=== PATIENT | male | born 1960 | race Caucasian/White ===

== ENCOUNTER 2018-11-29 22:25 | Observation (INO) | payer BC ==
--- NOTE | 2018-11-29 22:46 | EDM.PDOC ---
ED HPI GENERAL MEDICAL PROBLEM - General Chief Complaint: Upper Extremity Injury/Pain Stated Complaint: gout pain left arm Time Seen by Provider: 11/29/18 22:40 Source of Information: Reports: Patient, Old Records ([facility] chart/EMR), Other ([facility] EMR) History Limitations: Reports: No Limitations - History of Present Illness INITIAL COMMENTS - FREE TEXT/NARRATIVE: The patient drove himself to the emergency room for evaluation of 10/10 throbbing left elbow pain with history of at least 2 gout attacks per year. He has been trying to lose weight, however he has been eating lots of shrimp, cheese, and having additional beer. He did take 0.6 mg of colchicine at about 20 :00 hours evening, however no other medications including NSAIDs, etc.. Note that the patient did discontinue his Toprol-XL and Cardura about one week ago as per advice from his regular provider, Haroon Small M.D. at the [facility], secondary to some apparent bradycardia with increase of his lisinopril at that time. No history of injury to his left elbow, etc.. The patient denies any chest pain/pressure, heart flutter, dizziness, orthostasis, orthopnea, diaphoresis, paresthesias, recent decreased exercise tolerance, or any other anginal-type symptoms. No recent history of abdominal pain, heartburn , nausea, diarrhea, melena, gross hematochezia, or any food intolerance, including fatty foods, etc.. He denies any gross hematuria, colic, or other UTI symptoms. The patient also denies any recent fever, cough, wheezing, dyspnea, etc.. Onset: Gradual Onset Date: 11/28/18 Duration: Constant, Getting Worse Location: Reports: Upper Extremity, Left. Denies: Head, Face, Neck, Chest, Abdomen, Back, Upper Extremity, Right, Radiates to Quality: Reports: Throbbing Severity: Severe Improves with: Reports: Rest Worsens with: Reports: Movement Context: Reports: Other (As above). Denies: Trauma Associated Symptoms: Denies: Confusion, Chest Pain, Cough, cough w sputum, Diaphoresis, Fever/Chills, Loss of Appetite, Malaise, Nausea/Vomiting, Seizure, Shortness of Breath, Syncope, Weakness Treatments SHIRT PRESSER: Reports: Other Medication(s) Left Elbow Pain Score (Numeric/FACES): 10 - Related Data Allergies Allergy/AdvReac Type Severity Reaction Status Date / Time No Known Allergies Allergy Verified 11/29/18 22:33 Home Meds: Home Meds Lisinopril 20 mg PO BID 12/23/14 [History] Apixaban [Eliquis] 5 mg PO BID@0900,2100 12/13/17 [History] Pregabalin [Lyrica] 75 mg PO BID 01/08/18 [History] metFORMIN [Glucophage] 500 mg PO DAILY 01/08/18 [History] Colchicine [Colcrys] 0.6 mg PO DAILY PRN 11/29/18 [History] Furosemide 20 mg PO BID 11/29/18 [History] Nitroglycerin 0.4 mg SL ASDIRECTED PRN 11/30/18 [History] Past Medical History HEENT History: Reports: Impaired Vision, Other (See Below). Denies: Allergic Rhinitis, Cataract, Glaucoma, Hard of Hearing, Macular Degeneration, Otitis Media, Retinal Detachment Other HEENT History: Patient wears reading glasses after previous LASIK surgery as below. Cardiovascular History: Reports: Afib, Arrhythmia, Blood Clots/VTE/DVT, CAD, Cardiomyopathy, Heart Failure, High Cholesterol, Hypertension, [place], PVD, Other ( See Below). Denies: Aneurysm, Bypass, Heart Murmur, Pacemaker, PTCA, Stents, Syncope Other Cardiovascular History: Cardioversion for atrial flutter on 09/03/18. Non- STEMI on 12/13/17 with 90% stenosis of the second diagonal of the left coronary artery not amenable to PTCA/stent. Atrial flutter with rapid ventricular response in August 2018 requiring cardioversion as below. History of left leg DVT with secondary bilateral PE in about 2014 with current Eliquis therapy. Peripheral vascular disease of the legs bilaterally with surgery as below. Left atrial enlargement, cardiomegaly, and mild aortic root dilatation by echocardiogram in 2009 as below. CHF with additional diastolic component. Small pericardial effusion by echocardiogram. Respiratory History: Reports: Bronchitis, Recurrent, COPD, Intubation, Previous , PE, Sleep Apnea. Denies: Asthma, Intubation, Difficult, Pneumothorax, Pulmonary Fibrosis Other Respiratory History: Patient has been noncompliant with his CPAP. Multiple benign right upper lobe pulmonary nodules by CT scans as below. Gastrointestinal History: Reports: Colon Polyp, Diverticulosis, Hemorrhoids, Other (See Below). Denies: Bowel Obstruction, Celiac Disease, Cholelithiasis, Chronic Constipation, Chronic Diarrhea, Fecal Incontinence, Gastritis, GERD, GI Bleed, Hepatitis, Inflammatory Bowel Disease, Jaundice, Pancreatitis Other Gastrointestinal History: LFTs elevation likely secondary to his fatty liver with hepatosplenomegaly by CT scan. Benign hyperplastic colonic polyp at 25 cm removed by colonoscopy in 2007 as below. Genitourinary History: Reports: BPH, Chronic Renal Insuffiency, Diabetic Nephropathy, Hydronephrosis, Renal Calculus, Other (See Below). Denies: Acute Renal Failure, Retention, Urinary, STD, Urinary Incontinence, UTI, Recurrent Other Genitourinary History: History of recurrent urolithiasis with initial right-sided urolithiasis in 2003 and subsequent episodes in February 2018 with last episode on 01/08/18 with secondary right-sided hydronephrosis from a 1 cm distal stone requiring procedure as below. Benign left renal cyst. Musculoskeletal History: Reports: Arthritis, Back Pain, Chronic, Fracture, Gout , Neck Pain, Chronic, Osteoarthritis, Other (See Below). Denies: Amputation, Osteoporosis, RA, SLE Other Musculoskeletal History: Digit #5 fracture of the left hand as a teenager. Midshaft right radial and ulnar fracture at age 43. Neurological History: Reports: Concussion, Head Trauma, Neuropathy, Diabetic, Neuropathy, Peripheral, TIA, Other (See Below). Denies: Cerebral Aneurysms, CVA , Migraines, MS, Seizure, Vertigo Other Neuro History: Restless leg syndrome. Head Concussions 2 at age 35 and 43. Questionable TIA in December 2017 with negative MRI. Psychiatric History: Reports: Anxiety, Depression. Denies: Abuse, Victim of, ADD, ADHD, Addiction, Psych Hospitalization(s), Psychosis, PTSD, Suicide Attempt , Suicidal Ideation Endocrine/Metabolic History: Reports: Diabetes, Type I, Diabetes, Type II, IDDM , Obesity/BMI 30+, Other (See Below). Denies: Hypothyroidism, Osteopenia, Osteoporosis Other Endocrine/Metabolic History: History of AODM with previous occasional insulin use Hematologic History: Reports: None. Denies: Anemia, Blood Transfusion(s), Iron Deficiency Immunologic History: Reports: None. Denies: AIDS, HIV, SLE Oncologic (Cancer) History: Reports: None. Denies: Basal Cell Carcinoma, Colon , Hodgkin's Lymphoma, Leukemia, Lymphoma, Malignant Melanoma, Non-Hodgkin's Lymphoma, Prostate, Squamous Cell Carcinoma Dermatologic History: Reports: Venous Stasis Dermatitis. Denies: Eczema, Psoriasis - Infectious Disease History Infectious Disease History: Reports: Chicken Pox, Measles, Shingles. Denies: C- Difficile, Meningitis, Mononucleosis, MRSA, Mumps, Pertussis (Whooping Cough), Rheumatic Fever, Rubella, Scarlet Fever, TB, VRE - Past Surgical History Head Surgeries/Procedures: Reports: None HEENT Surgical History: Reports: LASIK, Oral Surgery. Denies: Adenoidectomy, Cataract Surgery, Eye Surgery, Laser Surgery, Myringotomy w Tube(s), Naso-Sinus Surgery, Tonsillectomy Other HEENT Surgeries/Procedures: [place] teeth extraction 4 at age 19. LASIK bilaterally in 1996. Cardiovascular Surgical History: Reports: Vascular Surgery, Other (See Below). Denies: AAA Repair, Coronary Artery Stent, Percutaneous Transluminal Angioplasty , Varicose Other Cardiovascular Surgeries/Procedures: Electrocardioversion for atrial flutter on 09/03/18. Left leg stent placement in 2013. Respiratory Surgical History: Reports: None. Denies: Thoracentesis GI Surgical History: Reports: Appendectomy, Colonoscopy, Hernia, Inguinal, Hernia Repair/Other, Polypectomy, Other (See Below). Denies: Cholecystectomy, EGD, Hernia, Abdominal Other GI Surgeries/Procedures: Appendectomy at age 11. Colonoscopy with concomitant umbilical hernia repair on 02/22/08 with previous bilateral inguinal hernia repairs. Male Surgical History: Reports: None, Kidney Stone Extraction, Renal Calculus , Other (See Below). Denies: Circumcision, TURP-Transurethral Resection of Prostate, Vasectomy Other Male Surgeries/Procedures: Right ureteral stent placement, cystoscopy, and stone extraction on 01/11/18. Endocrine Surgical History: Reports: None. Denies: Thyroid Biopsy Neurological Surgical History: Reports: Discectomy, Laminectomy, Lumbar Spine, Other (See Below). Denies: C-Spine, Sacral Spine, Spinal Fusion, Thoracic Spine , Vertebroplasty Other Neurological Surgeries/Procedures: Laser laminectomy and discectomy in the lumbar region in 2011. Musculoskeletal Surgical History: Reports: None. Denies: Arthroscopic Procedure , Carpal Tunnel, Ganglion Cyst, Joint Replacement, ORIF, Shoulder Surgery Oncologic Surgical History: Reports: None Dermatological Surgical History: Reports: None - Past Imaging History Past Imaging History: Reports: Angiography (Positive Heart catheterization on .), Cardiac Echo (Last echocardiogram on 11/21/18 with ejection fraction of 5560 percent and findings as above. Trans-esophageal echocardiogram performed on 09/03/18 at time of cardioversion. Previous echocardiograms on 12/15 and 01/21/10.), CAT Scan (Negative CTA of the chest for PE on 11/15/18, , 12/14/14 [address] 06/22/16. CT of the abdomen and pelvis on with positive findings as above. CT of the chest on 02/12/18.), MRI (Brain on 12/15/17. Lumbar spine on 07/11/11.), Sleep Study (Last sleep study including CPAP titration on 11/07.), Ultrasound (Renal ultrasound on 02/22/18, 01/09/18, 10/21/17 and 02/04/04.) , Venous Doppler (Bilateral 10/17/15 with left-sided study on 06/23/16.), Other ( See Below) (IVP on 02/04/04.) Social & Family History - Family History HEENT: Reports: Cataract, Other (See Below). Denies: Glaucoma, Macular Degeneration, Retinal Detachment Other HEENT Family History: Multiple paternal aunts and uncles with cataracts. Cardiac: Reports: Heart Murmur, Hypertension, Other (See Below). Denies: Afib, Aneurysm, Arrhythmia, Blood Clots/VTE/DVT, CAD, Heart Failure, High Cholesterol , [place], PVD/COD, Syncope Other Cardiac Family History: Paternal uncle with valvular disease secondary to rheumatic fever. Hypertension in parents. Respiratory: Reports: Sleep Apnea, Other (See Below). Denies: Asthma, COPD, PE , Pneumothorax Other Respiratory Family Hisory: Mother with sleep apnea. GI: Reports: Cholelithiasis, Other (See Below). Denies: Celiac Disease, Colon Polyps, GERD, GI bleed, Inflammatory Bowel Disease, Irritable Bowel Syndrome, PUD Other GI Family History: Father with cholelithiasis. : Reports: Renal Calculus, Other (See Below). Denies: Renal Disease/ Insufficiency Other Family History: Multiple paternal uncles with urolithiasis. OBGYN: Reports: None. Denies: Endometriosis, Recurrent Spontaneous Musculoskeletal: Reports: Arthritis, Gout, Osteoarthritis, Other (See Below). Denies: RA, SLE Other Musculoskeletal Family History: Father with gout and osteoarthritis. Neurological: Reports: CVA, Other (See Below). Denies: Alzheimers Disease, Cerebral Aneurysms, Dementia, Migraines, MS, Seizure, TIA, Vertigo Other Neurological Family History: Maternal grandfather with CVA in his 70s. Psychiatric: Reports: None. Denies: Abuse, Victim of, ADD, ADHD, Anxiety, Depression, Psych Hospitalization(s), PTSD, Suicide Attempt Endocrine/Metabolic: Reports: Diabetes, type II, IDDM, Other (See Below). Denies: Diabetes, Type I, Diabetes Mellitus, Type 3c, Hypothyroidism Other Endocrine/Metabolic Family History: Mother and paternal uncle with IDDM. Hematologic: Reports: Other (See Below) Other Hematologic Family History: Maternal uncle with unknown type of rare blood disease. Immunologic: Reports: None. Denies: AIDS, HIV, SLE Dermatologic: Reports: None. Denies: Eczema, Psoriasis Oncologic: Reports: Breast, Prostate, Other (See Below). Denies: Colon, Hodgkin 's Lymphoma, Leukemia, Lymphoma, Non-Hodgkin's Lymphoma, Skin Other Oncologic Family History: Mother with breast cancer at age 72. Paternal uncle with prostate cancer in his 80s. - Tobacco Use Smoking Status *Q: Never Smoker Tobacco Use Within Last Twelve Months: No Used Tobacco, but Quit: No Smoking Cessation Information Provided To Patient: No Second Hand Smoke Exposure: No Second Hand Smoke Education Provided: No - Caffeine Use Caffeine Use: Reports: Coffee (One cup per month), Soda (1 soda per week). Denies: Energy Drinks, Tea - Alcohol Use Alcohol Use History: Yes Days Per Week of Alcohol Use: 2 Number of Drinks Per Day: 4 Number of Drinks Per Day Comment: Usually beer with occasional wine. No previous DWIs, problems with alcohol abuse, etc. Total Drinks Per Week: 8 Alcohol Use in Last Twelve Months: Yes - Recreational Drug Use Recreational Drug Use: No Drug Use in Last 12 Months: No Recreational Drug Type: Denies: Amphetamines (Speed), Cocaine, Heroin, Inhalants (Glues, Solvents, Aerosols), LSD (Acid), Marijuana/Hashish, Methamphetamine, Morphine, Oxycodone - Living Situation & Occupation Living situation: Reports: (1980. 2 children), with Family () Occupation: Employed ([employer]) Review of Systems - Review of Systems Review Of Systems: ROS reveals no pertinent complaints other than HPI. ED EXAM, GENERAL - Physical Exam Exam: See Below Exam Limited By: No Limitations General Appearance: Alert, WD/WN, No Apparent Distress Eye Exam: Bilateral Eye: EOMI, Normal Inspection (No nystagmus), PERRL, Other ( Borderline mild exophthalmos) Ears: Normal External Exam, Normal Canal, Hearing Grossly Normal, Normal TMs Nose: Normal Inspection, Normal Mucosa, No Blood Throat/Mouth: Normal Inspection, Normal Lips, Normal Teeth, Normal Gums, Normal Oropharynx, Normal Voice, No Airway Compromise. No: Dysphagia, Perioral Cyanosis Head: Atraumatic, Normocephalic. No: Facial Swelling, Facial Tenderness, Sinus Tenderness Neck: Normal Inspection, Supple, Non-Tender, Full Range of Motion. No: Carotid Bruit, Lymphadenopathy (L), Lymphadenopathy (R), Thyromegaly Respiratory/Chest: No Respiratory Distress, Normal Breath Sounds, No Accessory Muscle Use, Chest Non-Tender, Rales (Mild bilateral). No: Rhonchi, Wheezing, Pleural Rub, Retractions Cardiovascular: Normal Peripheral Pulses, No Gallop, Tachycardia, Irregularly Irregular. No: No Edema (Dependent edema as below), Gallop/S3, Gallop/S4, Friction Rub Peripheral Pulses: 2+: Radial (L), Radial (R), Dorsalis Pedis (L), Dorsalis Pedis (R) GI/Abdominal: Normal Bowel Sounds, Soft, Non-Tender, No Organomegaly, No Distention, No Abnormal Bruit, No Mass, Pelvis Stable, Other (Obese). No: Guarding (Male) Exam: Deferred Rectal (Males) Exam: Deferred Back Exam: Normal Inspection, Full Range of Motion. No: CVA Tenderness (L), CVA Tenderness (R), Muscle Spasm Extremities: Normal Range of Motion, Non-Tender, Normal Capillary Refill, Pedal Edema (Trace to +1 bilateral pedal/pretibial edema), Other (Moderate venous stasis dermatitis over the anterior tibial regions bilaterally with some superficial abrasions and eschar on the left tibial area with no local signs of infection). No: No Pedal Edema, Tim's Sign Neurological: Alert, Oriented, CN II-XII Intact, Normal Cognition, Normal Gait, Normal Reflexes (Negative Babinski's), No Motor/Sensory Deficits, Other ( Moderate restless legs while sleeping in the emergency room.) Psychiatric: Normal Affect, Normal Mood Skin Exam: Warm, Dry, Intact, Normal Color, Rash (Venous stasis dermatitis as above), Wound/Incision (As above). No: Diaphoretic Lymphatic: No Adenopathy EKG INTERPRETATION EKG Date: 11/29/18 Time: 23:27 Rhythm: A-Flutter Rate (Beats/Min): 89 [place]: Normal (Left) P-Wave: Variable QRS: Normal (0.08 seconds) ST-T: Normal QT: Normal MI/PQ Interval: Variable; poor R-wave progression in the anterior leads Comparison: Change From Previous EKG (Resolution of previous T-wave inversions in leads V1 and 3) Course - Vital Signs Last Recorded V/S: Last Vital Signs Temp 36.9 C 11/29/18 22:28 Pulse 74 11/29/18 23:57 Resp 20 11/29/18 23:57 BP 110/74 11/29/18 23:57 Pulse Ox 94 L 11/29/18 23:57 Vital Signs - 24 hr 11/29/18 11/29/18 11/29/18 22:28 22:42 22:44 Temperature [ 36.9 C Oral] Pulse, Peripheral Pulse, 154 H 149 H 149 H Peripheral [ Right Pulse Oximetry] Respiratory 18 21 H Rate Blood Pressure Blood Pressure 129/101 H 138/102 H 126/106 H [Right Upper Arm] O2 Sat by Pulse 97 94 L 94 L Oximetry 11/29/18 11/29/18 11/29/18 22:59 23:00 23:15 Temperature [ Oral] Pulse, 148 H Peripheral Pulse, 148 H 144 H Peripheral [ Right Pulse Oximetry] Respiratory 20 20 Rate Blood Pressure 125/101 H Blood Pressure 125/101 H 133/96 H [Right Upper Arm] O2 Sat by Pulse 95 94 L Oximetry 11/29/18 11/29/18 11/29/18 23:30 23:40 23:43 Temperature [ Oral] Pulse, 123 H Peripheral Pulse, 97 75 Peripheral [ Right Pulse Oximetry] Respiratory 21 H 23 H Rate Blood Pressure 108/72 Blood Pressure 108/73 108/72 [Right Upper Arm] O2 Sat by Pulse 93 L 94 L Oximetry 11/29/18 11/30/18 11/30/18 23:57 00:12 00:27 Temperature [ Oral] Pulse, Peripheral Pulse, 74 83 74 Peripheral [ Right Pulse Oximetry] Respiratory 20 18 19 Rate Blood Pressure Blood Pressure 110/74 125/93 H 112/86 [Right Upper Arm] O2 Sat by Pulse 94 L 93 L 93 L Oximetry - Orders/Labs/Meds Orders: Active Orders 24 hr Category Date Time Status Cardiac Monitoring [RC] . DIRECTED Care 11/29/18 22:47 Active EKG Documentation Completion [RC] ASDIRECTED Care 11/29/18 22:47 Active Oxygen Therapy, ED [RC] PRN Care 11/29/18 22:47 Active Peripheral IV Care [RC] . DIRECTED Care 11/29/18 22:47 Active Pulse Oximetry [RC] CONTINUOUS Care 11/29/18 22:47 Active Up With Assistance [RC] PFP Care 11/29/18 22:47 Active Vital Signs [RC] PFP Care 11/29/18 22:47 Active Nothing per Oral Now Diet [DIET] Diet 11/29/18 Breakfast Active Chest 1V Frontal [CR] Stat Exams 11/29/18 22:47 Ordered CULTURE BLOOD [BC] Stat Lab 11/29/18 22:50 Ordered CULTURE BLOOD [BC] Stat Lab 11/29/18 22:50 Ordered Sodium Chloride 0.9% [Saline Flush] Med 11/29/18 22:47 Active 10 ml FLUSH ASDIRECTED PRN Blood Culture x2 Reflex Set [OM.PC] Urgent Oth 11/29/18 22:50 Ordered Obtain Past Medical Record [OM.PC] Urgent Oth 11/29/18 22:47 Active Peripheral IV Insertion Adult [OM.PC] Stat Oth 11/29/18 22:47 Ordered Resuscitation Status Stat Resus Stat 11/29/18 22:47 Ordered Medication Orders Sodium Chloride (Saline Flush) 10 ml FLUSH ASDIRECTED PRN PRN Reason: Keep Vein Open Last Admin: 11/29/18 23:06 Dose: 10 ml Labs: Laboratory Tests 11/29/18 11/29/18 11/29/18 Range/Units 22:55 22:55 22:55 WBC 7.8 (4.0-10.2) K/uL RBC 4.61 (4.33-5.41) M/uL Hgb 13.1 (13.1-16.8) g/dL Hct 40.5 (39.0-49.0) % MCV 87.9 (84.0-98.0) fL MCH 28.4 (28.2-33.3) pg MCHC 32.3 (31.7-36.0) g/dL RDW 14.4 H (11.2-14.1) % Plt Count 168 (150-350) K/uL Neut % (Auto) 77.5 (45.0-80.0) % Lymph % (Auto) 12.1 (10.0-50.0) % [place] % (Auto) 8.3 (2.0-14.0) % Eos % (Auto) 1.7 (0.0-5.0) % Baso % (Auto) 0.4 (0.0-2.0) % Neut # (Auto) 6.06 (1.40-7.00) K/uL Lymph # (Auto) 0.95 (0.50-3.50) K/uL [place] # (Auto) 0.65 (0.00-1.00) K/uL Eos # (Auto) 0.13 (0.00-0.50) K/uL Baso # (Auto) 0.03 (0.00-0.20) K/uL PT 12.1 H (9.5-12.0) SEC INR 1.1 APTT 28.0 (21.0-31.3) SEC Sodium 144 (136-145) mmol/L Potassium 3.8 (3.5-5.1) mmol/L Chloride 107 (98-107) mmol/L Carbon Dioxide 25.6 (21.0-32.0) mmol/L BUN 20 H (7-18) mg/dL Creatinine 1.23 H (0.51-1.17) mg/dL Est Cr Clr Drug Dosing TNP Estimated GFR (MDRD) > 60 mL/min Glucose 139 H (74-106) mg/dL Lactic Acid (0.4-2.0) mmol/L Uric Acid 9.5 H (2.6-7.2) mg/dL Calcium 9.1 (8.5-10.1) mg/dL Magnesium 1.7 L (1.8-2.4) mg/dL Total Bilirubin 1.0 (0.2-1.0) mg/dL AST 16 (15-37) U/L ALT 32 (12-78) U/L Alkaline Phosphatase 103 (46-116) IU/L Creatine Kinase 51 (26-308) U/L Creatine Kinase Index 2.0 (0.0-2.5) % CK-MB (CK-2) 1.00 (0.00-3.60) ng/mL Troponin I 0.045 (0.000-0.056) ng/mL NT-Pro-B Natriuret Pep 1198 H (0-125) pg/mL Total Protein 6.8 (6.4-8.2) g/dL Albumin 3.5 (3.4-5.0) g/dL TSH, Ultra Sensitive 2.407 (0.358-3.740) mIU/mL Ethyl Alcohol (0.000-0.080) g/dL 11/29/18 11/29/18 Range/Units 22:55 22:55 WBC (4.0-10.2) K/uL RBC (4.33-5.41) M/uL Hgb (13.1-16.8) g/dL Hct (39.0-49.0) % MCV (84.0-98.0) fL MCH (28.2-33.3) pg MCHC (31.7-36.0) g/dL RDW (11.2-14.1) % Plt Count (150-350) K/uL Neut % (Auto) (45.0-80.0) % Lymph % (Auto) (10.0-50.0) % [place] % (Auto) (2.0-14.0) % Eos % (Auto) (0.0-5.0) % Baso % (Auto) (0.0-2.0) % Neut # (Auto) (1.40-7.00) K/uL Lymph # (Auto) (0.50-3.50) K/uL [place] # (Auto) (0.00-1.00) K/uL Eos # (Auto) (0.00-0.50) K/uL Baso # (Auto) (0.00-0.20) K/uL PT (9.5-12.0) SEC INR APTT (21.0-31.3) SEC Sodium (136-145) mmol/L Potassium (3.5-5.1) mmol/L Chloride (98-107) mmol/L Carbon Dioxide (21.0-32.0) mmol/L BUN (7-18) mg/dL Creatinine (0.51-1.17) mg/dL Est Cr Clr Drug Dosing Estimated GFR (MDRD) mL/min Glucose (74-106) mg/dL Lactic Acid 0.7 (0.4-2.0) mmol/L Uric Acid (2.6-7.2) mg/dL Calcium (8.5-10.1) mg/dL Magnesium (1.8-2.4) mg/dL Total Bilirubin (0.2-1.0) mg/dL AST (15-37) U/L ALT (12-78) U/L Alkaline Phosphatase (46-116) IU/L Creatine Kinase (26-308) U/L Creatine Kinase Index (0.0-2.5) % CK-MB (CK-2) (0.00-3.60) ng/mL Troponin I (0.000-0.056) ng/mL NT-Pro-B Natriuret Pep (0-125) pg/mL Total Protein (6.4-8.2) g/dL Albumin (3.4-5.0) g/dL TSH, Ultra Sensitive (0.358-3.740) mIU/mL Ethyl Alcohol < 0.002 (0.000-0.080) g/dL Meds: Medications Generic Name Dose Route Start Last Admin Trade Name Freq PRN Reason Stop Dose Admin Sodium Chloride 10 ml 11/29/18 22:47 11/29/18 23:06 Saline Flush FLUSH 10 ml ASDIRECTED PRN Administration Keep Vein Open Discontinued Medications Generic Name Dose Route Start Last Admin Trade Name Freq PRN Reason Stop Dose Admin Diltiazem HCl 20 mg 11/29/18 23:16 11/29/18 23:19 Diltiazem IVPUSH 11/29/18 23:17 20 mg ONETIME ONE Administration Diltiazem HCl 120 mg 11/29/18 23:32 11/29/18 23:40 Cardizem Cd PO 11/29/18 23:33 120 mg ONETIME ONE Administration Famotidine 40 mg 11/29/18 22:51 11/29/18 23:04 Pepcid IVPUSH 11/29/18 22:52 40 mg ONETIME ONE Administration Ketorolac Tromethamine 30 mg 11/29/18 22:50 11/29/18 23:09 Toradol IVPUSH 11/29/18 22:51 30 mg ONETIME ONE Administration Metoprolol Tartrate 5 mg 11/29/18 22:47 11/29/18 22:59 Lopressor IVPUSH 11/29/18 22:48 5 mg ONETIME ONE Administration - Radiology Interpretation Free Text/Narrative:: office agent showed initial probable atrial flutter with initial heart rates in the 150s with subsequent improvement to the 70s to 80s after medical therapy however persistent atrial flutter with no other ectopy or arrhythmia. Chest x-ray, portable, shows evidence of moderate cardiomegaly and COPD changes with mild centralized CHF, however no pulmonary infiltrates, pneumothorax, etc. Departure - Departure Time of Disposition: 00:47 Disposition: Refer to Observation Condition: Good Clinical Impression: Dyslipidemia, Hypomagnesemia, Renal insufficiency, Atrial flutter, Restless leg syndrome, Apnea, sleep, CHF (congestive heart failure) Coronary artery disease Qualifiers: Coronary Disease-Associated Artery/Lesion type: [place] artery [place] vs. transplanted heart: [place] heart Associated angina: without angina Qualified Code(s): I25.10 - Atherosclerotic heart disease of [place] coronary artery without angina pectoris Diabetes mellitus Qualifiers: Diabetes mellitus type: type 2 Diabetes mellitus long term acute care registered nurse insulin use: without jail use Diabetes mellitus complication status: without complication Qualified Code(s): E11.9 - Type 2 diabetes mellitus without complications Hypertension Qualifiers: Hypertension type: essential hypertension Qualified Code(s): I10 - Essential ( primary) hypertension COPD (chronic obstructive pulmonary disease) Qualifiers: COPD type: emphysema Emphysema type: panlobular Qualified Code(s): J43.1 - Panlobular emphysema Gout attack Qualifiers: Gout site: elbow Gout etiology: idiopathic Laterality: left Qualified Code(s): M10.022 - Idiopathic gout, left elbow - Discharge Information *PRESCRIPTION DRUG MONITORING PROGRAM REVIEWED*: Not Applicable *COPY OF PRESCRIPTION DRUG MONITORING REPORT IN PATIENT SAMMI: Not Applicable Referrals: Haroon Small MD [Primary Care Provider] - Forms: ED Department Discharge Care Plan Goals: See plan - Problem List & Annotations (1) Atrial flutter SNOMED Code(s): 2337171 Code(s): I48.92 - UNSPECIFIED ATRIAL FLUTTER Status: Acute Priority: High Current Visit: Yes Onset Date: ~11/29/18 Annotation/Comment:: Recurrent atrial flutter with rapid ventricular response today with previous cardioversion on 09/03/18 as above. Note recent discontinuation of his Toprol-XL therapy. No significant improvement initially with IV Lopressor, however overall good results with subsequent 10 mg of IV diltiazem. Second dose of 10 mg of diltiazem was not required, although the patient was started on low-dose Cardizem CD with caution secondary to his Eliquis therapy. Continue Cardizem CD for now with additional low-dose metoprolol, if symptoms remain refractory to therapy. Secondary to recurrent tachycardia even with only brief exertion, including sitting up in the bed, and also secondary to his gout, hypertension, etc. the patient will be placed in observation status for further medication adjustments, etc.. Depending on his clinical course he may need to the change to acute care. business center representative physician assumes care in the a.m.. Note secondary to his significant cardiomegaly repeat cardioversion for his atrial flutter will likely be unsuccessful. The patient is already on Eliquis. (2) CHF (congestive heart failure) SNOMED Code(s): 04230034 Code(s): I50.9 - HEART FAILURE, UNSPECIFIED Status: Chronic Priority: High Current Visit: Yes Annotation/Comment:: Mild CHF by clinical exam and chest x-ray, however significantly elevated BNP. Initiate IV Lasix therapy with caution secondary to his current gout attack, renal insufficiency, etc. Note recent echocardiogram on 11/21/18. Qualifiers: Heart failure type: combined systolic and diastolic (3) Coronary artery disease SNOMED Code(s): 02054453 Code(s): I25.10 - ATHSCL HEART DISEASE OF [place] CORONARY ARTERY W/O ANG PCTRS Status: Chronic Priority: Medium Annotation/Comment:: No Chest pain or anginal type symptoms. Initiate standard rule out [place] orders with cardiology consultation depending on his clinical course. Qualifiers: Coronary Disease-Associated Artery/Lesion type: [place] artery [place] vs. transplanted heart: [place] heart Associated angina: without angina Qualified Code(s): I25.10 - Atherosclerotic heart disease of [place] coronary artery without angina pectoris (4) Dyslipidemia SNOMED Code(s): 116653072 Code(s): E78.5 - HYPERLIPIDEMIA, UNSPECIFIED Status: Acute Priority: High Onset Date: 12/13/17 Annotation/Comment:: Patient did previously take Lipitor in the past, however stopped this secondary to the cost of this medication. He is trying to lose weight with weight loss in moderation advisable. Lipid panel and glycosylated hemoglobin in the a.m. (5) Gout attack SNOMED Code(s): 102264657 Code(s): M10.9 - GOUT, UNSPECIFIED Status: Acute Priority: High Onset Date: ~11/28/18 Annotation/Comment:: History of recurrent gout attacks. IV Toradol given in the emergency room with continuation of IV Toradol with caution secondary to his Eliquis therapy. Short-term additional colchicine for now. Patient has been noncompliant with his uric acid diet as above with dietary information to be provided at discharge. Consider initiation of allopurinol therapy once his current gout attack has resolved secondary to his history of recurrent gout attacks as above. 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 Overall good results with additional low-dose IV Lopressor and oral and IV diltiazem. Continue oral diltiazem for now. Qualifiers: Hypertension type: essential hypertension Qualified Code(s): I10 - Essential (primary) hypertension (7) Hypomagnesemia SNOMED Code(s): 768156733 Code(s): E83.42 - HYPOMAGNESEMIA Status: Acute Priority: Medium Onset Date: 11/30/18 Annotation/Comment:: Initiate magnesium oxide therapy with close follow-up by his regular providers at discharge. (8) Renal insufficiency SNOMED Code(s): 156695328, 926583467 Code(s): N28.9 - DISORDER OF KIDNEY AND URETER, UNSPECIFIED Status: Chronic Priority: Medium Annotation/Comment:: The patient is already on lisinopril. Note diabetic nephropathy and history of CHF. Continue to observe renal function closely secondary to IV Lasix, colchicine, etc. (9) COPD (chronic obstructive pulmonary disease) SNOMED Code(s): 61947713 Code(s): J44.9 - CHRONIC OBSTRUCTIVE PULMONARY DISEASE, UNSPECIFIED Status : Chronic Priority: Medium Annotation/Comment:: COPD by chest x-ray with no previous therapy. PFTs once patient's condition has stabilized. Note patient has an additional history of sleep apnea and has been noncompliant with his CPAP. Weight loss in moderation and compliance with his CPAP strongly encouraged , which should also be beneficial for his uncontrolled hypertension at this time. Qualifiers: COPD type: emphysema Emphysema type: panlobular Qualified Code(s): J43.1 - Panlobular emphysema (10) Diabetes mellitus SNOMED Code(s): 47572519 Code(s): E11.9 - TYPE 2 DIABETES MELLITUS WITHOUT COMPLICATIONS Status: Chronic Priority: Medium Annotation/Comment:: Patient does not take Accu- Cheks at home. Glycosylated hemoglobin in the a.m. Note history of diabetic nephropathy and neuropathy. Qualifiers: Diabetes mellitus type: type 2 Diabetes mellitus long term acute care registered nurse insulin use: without long term acute care registered nurse use Diabetes mellitus complication status: with kidney complications Diabetes mellitus complication detail: with chronic kidney disease Chronic kidney disease stage: stage 2 (mild) Qualified Code(s): E11.22 - Type 2 diabetes mellitus with diabetic chronic kidney disease; N18.2 - Chronic kidney disease, stage 2 (mild) (11) Osteoarthritis SNOMED Code(s): 568477685 Code(s): M19.90 - UNSPECIFIED OSTEOARTHRITIS, UNSPECIFIED SITE Status: Chronic Priority: Medium Annotation/Comment:: Otherwise stable by patient history. Qualifiers: Osteoarthritis location: multiple joints Osteoarthritis type: primary Qualified Code(s): M15.0 - Primary generalized (osteo)arthritis (12) Apnea, sleep SNOMED Code(s): 48937445 Code(s): G47.30 - SLEEP APNEA, UNSPECIFIED Status: Chronic Priority: Medium Current Visit: Yes Annotation/Comment:: Patient just restarted his CPAP again yesterday evening and has been significantly noncompliant with this therapy the past. Note recent sleep study on 11/07/18 for CPAP titration. Note significant restless leg syndrome during ER evaluation. Initiate Mirapex Qualifiers: Sleep apnea type: obstructive Qualified Code(s): G47.33 - Obstructive sleep apnea (adult) (pediatric) (13) Restless leg syndrome SNOMED Code(s): 88118420 Code(s): G25.81 - RESTLESS LEGS SYNDROME Status: Chronic Priority: Medium Current Visit: Yes Annotation/Comment:: As above - Problem List Review Problem List Initiated/Reviewed/Updated: Yes - My Orders Last 24 Hours: My Active Orders 11/29/18 22:47 Cardiac Monitoring [RC] . DIRECTED EKG Documentation Completion [RC] ASDIRECTED Oxygen Therapy, ED [RC] PRN Peripheral IV Care [RC] . DIRECTED Pulse Oximetry [RC] CONTINUOUS Up With Assistance [RC] PFP Vital Signs [RC] PFP Chest 1V Frontal [CR] Stat Sodium Chloride 0.9% [Saline Flush] 10 ml FLUSH ASDIRECTED PRN Obtain Past Medical Record [OM.PC] Urgent Peripheral IV Insertion Adult [OM.PC] Stat Resuscitation Status Stat 11/29/18 22:50 CULTURE BLOOD [BC] Stat CULTURE BLOOD [BC] Stat Blood Culture x2 Reflex Set [OM.PC] Urgent 11/29/18 Breakfast Nothing per Oral Now Diet [DIET] - Assessment/Plan Admission H&P: Please use this note as an admission H&P Last 24 Hours: My Active Orders 11/29/18 22:47 Cardiac Monitoring [RC] . DIRECTED EKG Documentation Completion [RC] ASDIRECTED Oxygen Therapy, ED [RC] PRN Peripheral IV Care [RC] . DIRECTED Pulse Oximetry [RC] CONTINUOUS Up With Assistance [RC] PFP Vital Signs [RC] PFP Chest 1V Frontal [CR] Stat Sodium Chloride 0.9% [Saline Flush] 10 ml FLUSH ASDIRECTED PRN Obtain Past Medical Record [OM.PC] Urgent Peripheral IV Insertion Adult [OM.PC] Stat Resuscitation Status Stat 11/29/18 22:50 CULTURE BLOOD [BC] Stat CULTURE BLOOD [BC] Stat Blood Culture x2 Reflex Set [OM.PC] Urgent 11/29/18 Breakfast Nothing per Oral Now Diet [DIET] Assessment:: As above Plan: As above. Extensive precautions were given to the patient, who is in agreement with the treatment plan. The patient's condition is stable enough for observation status and general supervision.
[2018-11-29] MEDS ORDERED: Metoprolol Tartrate 5 MG/5 ML SDV IVPUSH ONE (22:47)
[2018-11-29] MEDS ORDERED: Ketorolac 30 MG/ML SDV IVPUSH ONE (22:50)
[2018-11-29] MEDS ORDERED: Famotidine 20 MG/2 ML SDV IVPUSH ONE (22:51)
[2018-11-29] MEDS: Sodium Chloride 0.9% 10 ML Syringe FLUSH PRN (23:06)
[2018-11-29] MEDS ORDERED: Diltiazem 25 MG/5 ML SDV IVPUSH ONE (23:16)
[2018-11-29 23:29] LABS: CHLORIDE,CL 107 mmol/L (98-107); SODIUM,NA 144 mmol/L (136-145)
[2018-11-29] MEDS ORDERED: Diltiazem 120 MG Cap.CD PO ONE (23:32)
[2018-11-30] MEDS ORDERED: Nitroglycerin 0.4 MG Tab.SL SL PRN (01:01)
[2018-11-30] MEDS ORDERED: Sodium Chloride 0.9% 10 ML Syringe FLUSH PRN (01:05)
[2018-11-30] MEDS ORDERED: Acetaminophen 325 MG Tab PO PRN (01:05)
[2018-11-30] MEDS ORDERED: Temazepam 15 MG Cap PO PRN (01:05)
[2018-11-30] MEDS ORDERED: Diphtheria,Pertussis(Acell),Tetanus Vaccine 0.5 ML SDV IM ONE ×2 (01:26→12:00)
[2018-11-30] MEDS ORDERED: Pneumococcal Polyvalent-23 Vaccine 0.5 ML SDV IM ONE ×2 (01:26→12:00)
[2018-11-30] MEDS: Pramipexole 0.5 MG Tab PO SCH ×2 (02:04→19:24)
[2018-11-30] MEDS: Sodium Chloride 0.9% 10 ML Syringe FLUSH PRN ×4 (02:04→20:44)
[2018-11-30] MEDS: Furosemide 40 MG/4 ML VIAL IVPUSH SCH ×3 (02:04→18:29)
[2018-11-30] MEDS: Ketorolac 15 MG/ML SDV IVPUSH PRN ×3 (06:11→20:43)
[2018-11-30 07:42] LABS: HEMOGLOBIN A1C 6.6 % (4.3-5.7)
[2018-11-30] MEDS: metFORMIN 500 MG Tab PO SCH ×2 (07:48→18:27)
[2018-11-30] MEDS: Magnesium Oxide 400 MG Tab PO SCH (07:48)
[2018-11-30] MEDS: Potassium Chloride 20 MEQ Tab.ER PO SCH ×3 (07:48→18:26)
[2018-11-30] MEDS: Pregabalin 75 MG Cap PO SCH ×2 (07:48→18:28)
[2018-11-30] MEDS: Colchicine 0.6 MG Tab PO SCH ×2 (07:48→18:27)
[2018-11-30] MEDS: Lisinopril 20 MG Tab PO SCH ×2 (07:49→18:27)
--- NOTE | 2018-11-30 09:11 | PCM.PN ---
- General Info Date of Service: 11/30/18 Admission Dx/Problem (Free Text): 1. Recurrent atrial flutter with rapid ventricular response 2. CHF 3. Coronary artery disease 4. gout attack Functional Status: Reports: Pain Controlled, Ambulating, Urinating, Incentive Spirometry. Denies: Tolerating Diet (still nothing by mouth), New Symptoms Pain Score: 5 (left elbow 0 at rest 5 with movement, improved) - Review of Systems General: Reports: No Symptoms. Denies: Fever, Weakness, Fatigue, Malaise, Chills, Night Sweats, Appetite (ready to eat breakfast) HEENT: Reports: No Symptoms. Denies: Ear Pain, Eye Pain, Glasses, Headaches, Post Nasal Drip, Sinus Congestion, Sore Throat, Rhinitis, Visual Changes Pulmonary: Reports: No Symptoms. Denies: Shortness of Breath, Pleuritic Chest Pain, Cough, Sputum, Hemoptysis, Wheezing Cardiovascular: Reports: Edema (improved dependent edema). Denies: Chest Pain, Palpitations, Dyspnea on Exertion, Orthopnea, PND, Lightheadedness Gastrointestinal: Reports: No Symptoms. Denies: Abdominal Pain, Constipation ( no bowel movement since admission), Decreased Appetite, Diarrhea, Difficulty Swallowing, Hematochezia, Melena, Nausea, Vomiting Genitourinary: Reports: No Symptoms. Denies: Dysuria, Frequency, Pain, Incontinence, Hematuria, Retention, Flank Pain Musculoskeletal: Reports: Arm Pain (improved left elbow pain), Joint Pain (left elbow as above), Joint Swelling (eft elbow). Denies: Neck Pain, Shoulder Pain Skin: Reports: Other (stable venous stasis dermatitis). Denies: Diaphoresis, Bruising, Pruritis, Rash Neurological: Reports: No Symptoms. Denies: Confusion, Dizziness, Numbness, Paresthesia, Tingling, Weakness Psychiatric: Reports: No Symptoms. Denies: Confusion, Depression, Anxiety, Agitation, Cravings, Hallucinations - Patient Data Vitals - Most Recent: Last Vital Signs Temp 36.6 C 11/30/18 07:38 Pulse 47 L 11/30/18 07:38 Resp 20 11/30/18 07:38 BP 124/95 H 11/30/18 07:49 Pulse Ox 92 L 11/30/18 07:38 Note: based on clinical exam pulse is in the 90s rather than 47 as above. Vital Signs - 24 hr 11/29/18 11/29/18 11/29/18 22:28 22:42 22:44 Temperature [ 36.9 C Oral] Pulse, Peripheral Pulse, 154 H 149 H 149 H Peripheral [ Right Pulse Oximetry] Respiratory 18 21 H Rate Blood Pressure Blood Pressure 129/101 H 138/102 H 126/106 H [Right Upper Arm] O2 Sat by Pulse 97 94 L 94 L Oximetry 11/29/18 11/29/18 11/29/18 22:59 23:00 23:15 Temperature [ Oral] Pulse, 148 H Peripheral Pulse, 148 H 144 H Peripheral [ Right Pulse Oximetry] Respiratory 20 20 Rate Blood Pressure 125/101 H Blood Pressure 125/101 H 133/96 H [Right Upper Arm] O2 Sat by Pulse 95 94 L Oximetry 11/29/18 11/29/18 11/29/18 23:30 23:40 23:43 Temperature [ Oral] Pulse, 123 H Peripheral Pulse, 97 75 Peripheral [ Right Pulse Oximetry] Respiratory 21 H 23 H Rate Blood Pressure 108/72 Blood Pressure 108/73 108/72 [Right Upper Arm] O2 Sat by Pulse 93 L 94 L Oximetry 11/29/18 11/30/18 11/30/18 23:57 00:12 00:27 Temperature [ Oral] Pulse, Peripheral Pulse, 74 83 74 Peripheral [ Right Pulse Oximetry] Respiratory 20 18 19 Rate Blood Pressure Blood Pressure 110/74 125/93 H 112/86 [Right Upper Arm] O2 Sat by Pulse 94 L 93 L 93 L Oximetry 11/30/18 11/30/18 11/30/18 00:43 02:00 04:00 Temperature [ 36.6 C 37.2 C Oral] Pulse, Peripheral Pulse, 71 72 73 Peripheral [ Right Pulse Oximetry] Respiratory 21 H 16 16 Rate Blood Pressure Blood Pressure 116/78 126/80 134/82 [Right Upper Arm] O2 Sat by Pulse 93 L 96 93 L Oximetry 11/30/18 11/30/18 11/30/18 06:00 07:38 07:49 Temperature [ 36.6 C 36.6 C Oral] Pulse, Peripheral Pulse, 74 47 L Peripheral [ Right Pulse Oximetry] Respiratory 16 20 Rate Blood Pressure 124/95 H Blood Pressure 117/81 124/95 H [Right Upper Arm] O2 Sat by Pulse 94 L 92 L Oximetry Weight - Most Recent: 148.143 kg I&O - Last 24 Hours: Intake & Output 11/29/18 11/30/18 11/30/18 22:59 06:59 14:59 Intake Total 0 Output Total 950 250 Balance -950 -250 Imaging Impressions - Last 24 Hours: monitoring and evaluation advisor shows atrial flutter with average heart rate in the 90s with no ectopy or arrhythmia Lab Results Last 24 Hours: Laboratory Results - last 24 hr 11/29/18 11/29/18 11/29/18 Range/Units 22:55 22:55 22:55 WBC 7.8 (4.0-10.2) K/uL RBC 4.61 (4.33-5.41) M/uL Hgb 13.1 (13.1-16.8) g/dL Hct 40.5 (39.0-49.0) % MCV 87.9 (84.0-98.0) fL MCH 28.4 (28.2-33.3) pg MCHC 32.3 (31.7-36.0) g/dL RDW 14.4 H (11.2-14.1) % Plt Count 168 (150-350) K/uL Neut % (Auto) 77.5 (45.0-80.0) % Lymph % (Auto) 12.1 (10.0-50.0) % Craven % (Auto) 8.3 (2.0-14.0) % Eos % (Auto) 1.7 (0.0-5.0) % Baso % (Auto) 0.4 (0.0-2.0) % Neut # (Auto) 6.06 (1.40-7.00) K/uL Lymph # (Auto) 0.95 (0.50-3.50) K/uL [place] # (Auto) 0.65 (0.00-1.00) K/uL Eos # (Auto) 0.13 (0.00-0.50) K/uL Baso # (Auto) 0.03 (0.00-0.20) K/uL PT 12.1 H (9.5-12.0) SEC INR 1.1 APTT 28.0 (21.0-31.3) SEC Sodium 144 (136-145) mmol/L Potassium 3.8 (3.5-5.1) mmol/L Chloride 107 (98-107) mmol/L Carbon Dioxide 25.6 (21.0-32.0) mmol/L BUN 20 H (7-18) mg/dL Creatinine 1.23 H (0.51-1.17) mg/dL Est Cr Clr Drug Dosing TNP Estimated GFR (MDRD) > 60 mL/min Glucose 139 H (74-106) mg/dL Hemoglobin A1c (4.3-5.7) % Lactic Acid (0.4-2.0) mmol/L Uric Acid 9.5 H (2.6-7.2) mg/dL Calcium 9.1 (8.5-10.1) mg/dL Magnesium 1.7 L (1.8-2.4) mg/dL Total Bilirubin 1.0 (0.2-1.0) mg/dL AST 16 (15-37) U/L ALT 32 (12-78) U/L Alkaline Phosphatase 103 (46-116) IU/L Creatine Kinase 51 (26-308) U/L Creatine Kinase Index 2.0 (0.0-2.5) % CK-MB (CK-2) 1.00 (0.00-3.60) ng/mL Troponin I 0.045 (0.000-0.056) ng/mL NT-Pro-B Natriuret Pep 1198 H (0-125) pg/mL Total Protein 6.8 (6.4-8.2) g/dL Albumin 3.5 (3.4-5.0) g/dL Triglycerides (30-150) mg/dL Cholesterol (100-200) mg/dL LDL Cholesterol, Calc (0-100) mg/dL HDL Cholesterol (40-60) mg/dL TSH, Ultra Sensitive 2.407 (0.358-3.740) mIU/mL Ethyl Alcohol (0.000-0.080) g/dL 11/29/18 11/29/18 11/30/18 Range/Units 22:55 22:55 06:25 WBC (4.0-10.2) K/uL RBC (4.33-5.41) M/uL Hgb (13.1-16.8) g/dL Hct (39.0-49.0) % MCV (84.0-98.0) fL MCH (28.2-33.3) pg MCHC (31.7-36.0) g/dL RDW (11.2-14.1) % Plt Count (150-350) K/uL Neut % (Auto) (45.0-80.0) % Lymph % (Auto) (10.0-50.0) % [place] % (Auto) (2.0-14.0) % Eos % (Auto) (0.0-5.0) % Baso % (Auto) (0.0-2.0) % Neut # (Auto) (1.40-7.00) K/uL Lymph # (Auto) (0.50-3.50) K/uL [place] # (Auto) (0.00-1.00) K/uL Eos # (Auto) (0.00-0.50) K/uL Baso # (Auto) (0.00-0.20) K/uL PT (9.5-12.0) SEC INR APTT (21.0-31.3) SEC Sodium (136-145) mmol/L Potassium (3.5-5.1) mmol/L Chloride (98-107) mmol/L Carbon Dioxide (21.0-32.0) mmol/L BUN (7-18) mg/dL Creatinine (0.51-1.17) mg/dL Est Cr Clr Drug Dosing Estimated GFR (MDRD) mL/min Glucose (74-106) mg/dL Hemoglobin A1c (4.3-5.7) % Lactic Acid 0.7 (0.4-2.0) mmol/L Uric Acid (2.6-7.2) mg/dL Calcium (8.5-10.1) mg/dL Magnesium (1.8-2.4) mg/dL Total Bilirubin (0.2-1.0) mg/dL AST (15-37) U/L ALT (12-78) U/L Alkaline Phosphatase (46-116) IU/L Creatine Kinase 43 (26-308) U/L Creatine Kinase Index 3.0 H (0.0-2.5) % CK-MB (CK-2) 1.30 (0.00-3.60) ng/mL Troponin I 0.066 H* (0.000-0.056) ng/mL NT-Pro-B Natriuret Pep (0-125) pg/mL Total Protein (6.4-8.2) g/dL Albumin (3.4-5.0) g/dL Triglycerides 46 (30-150) mg/dL Cholesterol 120 (100-200) mg/dL LDL Cholesterol, Calc 77 (0-100) mg/dL HDL Cholesterol 34 L (40-60) mg/dL TSH, Ultra Sensitive (0.358-3.740) mIU/mL Ethyl Alcohol < 0.002 (0.000-0.080) g/dL 11/30/18 Range/Units 06:25 WBC (4.0-10.2) K/uL RBC (4.33-5.41) M/uL Hgb (13.1-16.8) g/dL Hct (39.0-49.0) % MCV (84.0-98.0) fL MCH (28.2-33.3) pg MCHC (31.7-36.0) g/dL RDW (11.2-14.1) % Plt Count (150-350) K/uL Neut % (Auto) (45.0-80.0) % Lymph % (Auto) (10.0-50.0) % [place] % (Auto) (2.0-14.0) % Eos % (Auto) (0.0-5.0) % Baso % (Auto) (0.0-2.0) % Neut # (Auto) (1.40-7.00) K/uL Lymph # (Auto) (0.50-3.50) K/uL [place] # (Auto) (0.00-1.00) K/uL Eos # (Auto) (0.00-0.50) K/uL Baso # (Auto) (0.00-0.20) K/uL PT (9.5-12.0) SEC INR APTT (21.0-31.3) SEC Sodium (136-145) mmol/L Potassium (3.5-5.1) mmol/L Chloride (98-107) mmol/L Carbon Dioxide (21.0-32.0) mmol/L BUN (7-18) mg/dL Creatinine (0.51-1.17) mg/dL Est Cr Clr Drug Dosing Estimated GFR (MDRD) mL/min Glucose (74-106) mg/dL Hemoglobin A1c 6.6 H (4.3-5.7) % Lactic Acid (0.4-2.0) mmol/L Uric Acid (2.6-7.2) mg/dL Calcium (8.5-10.1) mg/dL Magnesium (1.8-2.4) mg/dL Total Bilirubin (0.2-1.0) mg/dL AST (15-37) U/L ALT (12-78) U/L Alkaline Phosphatase (46-116) IU/L Creatine Kinase (26-308) U/L Creatine Kinase Index (0.0-2.5) % CK-MB (CK-2) (0.00-3.60) ng/mL Troponin I (0.000-0.056) ng/mL NT-Pro-B Natriuret Pep (0-125) pg/mL Total Protein (6.4-8.2) g/dL Albumin (3.4-5.0) g/dL Triglycerides (30-150) mg/dL Cholesterol (100-200) mg/dL LDL Cholesterol, Calc (0-100) mg/dL HDL Cholesterol (40-60) mg/dL TSH, Ultra Sensitive (0.358-3.740) mIU/mL Ethyl Alcohol (0.000-0.080) g/dL Jacinto Results Last 24 Hours: none Med Orders - Current: Current Medications Acetaminophen (Tylenol) 650 mg PO Q4H PRN PRN Reason: Pain Apixaban (Eliquis) 5 mg PO BID@0900,2100 [facility] Atorvastatin Calcium (Lipitor) 10 mg PO BEDTIME [facility] Colchicine (Colcrys) 0.6 mg PO BID [facility] Last Admin: 11/30/18 07:48 Dose: 0.6 mg Diltiazem HCl (Cardizem Cd) 120 mg PO QPM [facility] Famotidine (Pepcid) 20 mg IVPUSH BID [facility] Furosemide (Lasix) 40 mg IVPUSH Q8H [facility] Last Admin: 11/30/18 02:04 Dose: 40 mg Ketorolac Tromethamine (Toradol) 15 mg IVPUSH Q6H PRN PRN Reason: Pain (moderate 4-6) Stop: 12/01/18 18:00 Last Admin: 11/30/18 06:11 Dose: 15 mg Lisinopril (Prinivil) 20 mg PO BID [facility] Last Admin: 11/30/18 07:49 Dose: 20 mg Magnesium Oxide (Magnesium Oxide) 400 mg PO DAILY [facility] Last Admin: 11/30/18 07:48 Dose: 400 mg Metformin HCl (Glucophage) 500 mg PO BIDMEALS [facility] Last Admin: 11/30/18 07:48 Dose: 500 mg Nitroglycerin (Nitrostat) 0.4 mg SL ASDIRECTED PRN PRN Reason: Chest Pain Potassium Chloride (Klor-Con M20) 20 meq PO TIDMEALS [facility] Last Admin: 11/30/18 07:48 Dose: 20 meq Pramipexole Dihydrochloride (Mirapex) 0.5 mg PO BEDTIME [facility] Last Admin: 11/30/18 02:04 Dose: 0.5 mg Pregabalin (Lyrica) 75 mg PO BID [facility] Last Admin: 11/30/18 07:48 Dose: 75 mg Sodium Chloride (Saline Flush) 10 ml FLUSH ASDIRECTED PRN PRN Reason: Keep Vein Open Last Admin: 11/30/18 06:11 Dose: 10 ml Sodium Chloride (Saline Flush) 10 ml FLUSH Q12HR PRN PRN Reason: Keep Vein Open Temazepam (Restoril) 15 mg PO BEDTIME PRN PRN Reason: Insomnia Discontinued Medications Diltiazem HCl (Diltiazem) 20 mg IVPUSH ONETIME ONE Stop: 11/29/18 23:17 Last Admin: 11/29/18 23:19 Dose: 20 mg Diltiazem HCl (Cardizem Cd) 120 mg PO ONETIME ONE Stop: 11/29/18 23:33 Last Admin: 11/29/18 23:40 Dose: 120 mg Diphtheria/Tetanus/Acell Pertussis (Adacel) 0.5 ml IM .ONCE ONE Stop: 11/30/18 01:27 Famotidine (Pepcid) 40 mg IVPUSH ONETIME ONE Stop: 11/29/18 22:52 Last Admin: 11/29/18 23:04 Dose: 40 mg Ketorolac Tromethamine (Toradol) 30 mg IVPUSH ONETIME ONE Stop: 11/29/18 22:51 Last Admin: 11/29/18 23:09 Dose: 30 mg Metoprolol Tartrate (Lopressor) 5 mg IVPUSH ONETIME ONE Stop: 11/29/18 22:48 Last Admin: 11/29/18 22:59 Dose: 5 mg Pneumococcal Polyvalent Vaccine (Pneumovax 23) 0.5 ml IM .ONCE ONE Stop: 11/30/18 01:27 - Exam Quality Assessment: DVT Prophylaxis (Eliquis). No: Supplemental Oxygen, Central Line/PICC, Skin Breakdown, Restraints General: Alert, Oriented, Cooperative, No Acute Distress HEENT: Pupils Equal, Pupils Reactive, EOMI, Mucous Membr. Moist/[place]. No: Scleral Icterus Neck: Supple, Trachea Midline, No JVD, No Thyromegaly, +2 Carotid Pulse wo Bruit. No: Lymphadenopathy Lungs: Normal Respiratory Effort, Rales (mild bilateral basilar rales). No: Rhonchi, Rub, Wheezing Cardiovascular: Regular Rate, No Murmurs, Irregular Rhythm. No: Gallops, Rubs GI/Abdominal Exam: Normal Bowel Sounds, Soft, Non-Tender, No Organomegaly, No Distention, No Abnormal Bruit, No Mass, Pelvis Stable, Other (obese). No: Guarding (Male) Exam: Deferred Back Exam: Normal Inspection, Full Range of Motion. No: CVA Tenderness (L), CVA Tenderness (R), Muscle Spasm Extremities: Normal Range of Motion, Pedal Edema (improved bilateral trace pedal /pretibial edema with moderate venous stasis dermatitis in the anterior tibial regions including stable mild superficial abrasions over left anterior tibia with mild eschar formation but no signs of infection), Joint Swelling (table mild effusion of the left olecranon with mild local warming but no lymphangitis , etc.), Increased Warmth (as above), Redness (trace erythema over the left olecranon). No: Non-Tender (improved mild palpation pain over the left olecranon with improved discomfort with range of motion. No instability, crepitation, sign of fracture, etc.), No Pedal Edema Peripheral Pulses: 2+: Radial (L), Radial (R), Dorsalis Pedis (L), Dorsalis Pedis (R) Skin: Other (as above) Neurological: No New Focal Deficit Psy/Mental Status: Alert, Normal Affect, Normal Mood. No: Agitated, Hallucinations, Withdrawal Symptoms EKG INTERPRETATION EKG Date: 11/30/18 Time: 08:07 Rhythm: A-Flutter Rate (Beats/Min): 93 [place]: Normal (left) P-Wave: Variable (with extreme poor R-wave progression in the anterior leads) QRS: Normal (0.08 seconds) ST-T: Normal (with nonspecific ST changes) QT: Normal ME/PQ Interval: variable Comparison: No Change (since last EKG on 11/29/18.) EKG Interpretation Comments: 1. No acute ischemic changes 2. Atrial flutter - Problem List & Annotations (1) Atrial flutter SNOMED Code(s): 8882387 Code(s): I48.92 - UNSPECIFIED ATRIAL FLUTTER Status: Acute Priority: High Current Visit: Yes Onset Date: ~11/29/18 Annotation/Comment:: Note mild progression of patient's troponin I this morningwith otherwise negative cardiac enzymes. Telephone consultation initially on 10/29 with [facility] with subsequent cardiology consultation at 08:[address] Meredith, maintenance chief, who is in agreement with our treatment plan and does not feel that a transfer to their facility for further cardiac workup is necessary at this time. She did review recent extensive workup in their facility , including recent heart catheterization and echocardiogram as per emergency room note. She is in agreement with current diltiazem therapy, however suggests changed to sotalol, if patient's rhythm remained refractory to diltiazem. Cardiac ablation may be considered, if the patient fails on sotalol. Further cardiology consultation depending on her clinical course. Dr. Benson, assumes care later today. Recurrent atrial flutter with rapid ventricular response on admission with previous cardioversion on 09/03/18 as above. Note recent discontinuation of his Toprol-XL therapy. No significant improvement initially with IV Lopressor, however overall good results with subsequent 10 mg of IV diltiazem. Second dose of 10 mg of diltiazem was not required, although the patient was started on low-dose Cardizem CD with caution secondary to his Eliquis therapy. Continue Cardizem CD for now with additional low-dose metoprolol, if symptoms remain refractory to therapy. Secondary to recurrent tachycardia even with only brief exertion, including sitting up in the bed, and also secondary to his gout, hypertension, etc. the patient will be placed in observation status for further medication adjustments, etc.. Depending on his clinical course he may need to the change to acute care. Shira leonardo physician assumes care in the a.m.. Note secondary to his significant cardiomegaly repeat cardioversion for his atrial flutter will likely be unsuccessful. The patient is already on Eliquis. (2) CHF (congestive heart failure) SNOMED Code(s): 24947248 Code(s): I50.9 - HEART FAILURE, UNSPECIFIED Status: Chronic Priority: High Current Visit: Yes Qualifiers: Heart failure type: combined systolic and diastolic Heart failure chronicity: acute on chronic Qualified Code(s): I50.43 - Acute on chronic combined systolic (congestive) and diastolic (congestive) heart failure Annotation/Comment:: Mild CHF by clinical exam and chest x-ray, however significantly elevated BNP. Initiate IV Lasix therapy with caution secondary to his current gout attack, renal insufficiency, etc. Note recent echocardiogram on 11/21/18. (3) Coronary artery disease SNOMED Code(s): 35491305 Code(s): I25.10 - ATHSCL HEART DISEASE OF [place] CORONARY ARTERY W/O ANG PCTRS Status: Chronic Priority: Medium Current Visit: Yes Qualifiers: Coronary Disease-Associated Artery/Lesion type: [place] artery [place] vs. transplanted heart: [place] heart Associated angina: without angina Qualified Code(s): I25.10 - Atherosclerotic heart disease of [place] coronary artery without angina pectoris Annotation/Comment:: No Chest pain or anginal type symptoms. Continue standard rule out [place] orders with cardiology consultation depending on his clinical course. (4) Dyslipidemia SNOMED Code(s): 539538553 Code(s): E78.5 - HYPERLIPIDEMIA, UNSPECIFIED Status: Acute Priority: High Current Visit: Yes Onset Date: 12/13/17 Annotation/Comment:: Lipid panel good this morning. Patient did previously take Lipitor in the past, however stopped this secondary to the cost of this medication. He is trying to lose weight with weight loss in moderation advisable. Dietary information at time of discharge. (5) Gout attack SNOMED Code(s): 573289385 Code(s): M10.9 - GOUT, UNSPECIFIED Status: Acute Priority: High Current Visit: Yes Onset Date: ~11/28/18 Qualifiers: Gout site: elbow Gout etiology: idiopathic Laterality: left Qualified Code(s): M10.022 - Idiopathic gout, left elbow Annotation/Comment:: Improved pain control today. History of recurrent gout attacks. IV Toradol given in the emergency room with continuation of IV Toradol with caution secondary to his Eliquis therapy. Short-term additional colchicine for now. Patient has been noncompliant with his uric acid diet as above with dietary information to be provided at discharge. Consider initiation of allopurinol therapy once his current gout attack has resolved secondary to his history of recurrent gout attacks as above. (6) Hypertension SNOMED Code(s): 57132447 Code(s): I10 - ESSENTIAL (PRIMARY) HYPERTENSION Status: Acute Priority: High Current Visit: Yes Qualifiers: Hypertension type: essential hypertension Qualified Code(s): I10 - Essential (primary) hypertension Annotation/Comment:: Blood pressures significantly improved today with significantly elevated blood pressures on arrival with recent discontinuation of his Cardura and Toprol XL as above. Overall good results with additional low- dose IV Lopressor and oral and IV diltiazem. Continue oral diltiazem for now. (7) Hypomagnesemia SNOMED Code(s): 939717974 Code(s): E83.42 - HYPOMAGNESEMIA Status: Acute Priority: Medium Current Visit: Yes Onset Date: 11/30/18 Annotation/Comment:: Initiate magnesium oxide therapy with close follow-up by his regular providers at discharge. (8) Renal insufficiency SNOMED Code(s): 131264996, 276165598 Code(s): N28.9 - DISORDER OF KIDNEY AND URETER, UNSPECIFIED Status: Chronic Priority: Medium Current Visit: Yes Annotation/Comment:: The patient is already on lisinopril. Note diabetic nephropathy and history of CHF. Continue to observe renal function closely secondary to IV Lasix, colchicine, etc. (9) COPD (chronic obstructive pulmonary disease) SNOMED Code(s): 36266246 Code(s): J44.9 - CHRONIC OBSTRUCTIVE PULMONARY DISEASE, UNSPECIFIED Status : Chronic Priority: Medium Current Visit: Yes Qualifiers: COPD type: emphysema Emphysema type: panlobular Qualified Code(s): J43.1 - Panlobular emphysema Annotation/Comment:: COPD by chest x-ray with no previous therapy. PFTs once patient's condition has stabilized. Note patient has an additional history of sleep apnea and has been noncompliant with his CPAP. Weight loss in moderation and compliance with his CPAP strongly encouraged, which should also be beneficial for his uncontrolled hypertension at this time. 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 Glycosylated hemoglobin this morning is good. Note history of diabetic nephropathy and neuropathy. (11) Osteoarthritis SNOMED Code(s): 784194250 Code(s): M19.90 - UNSPECIFIED OSTEOARTHRITIS, UNSPECIFIED SITE Status: Chronic Priority: Medium Current Visit: Yes Qualifiers: Osteoarthritis location: multiple joints Osteoarthritis type: primary Qualified Code(s): M15.0 - Primary generalized (osteo)arthritis Annotation/Comment:: Otherwise stable by patient history. (12) Apnea, sleep SNOMED Code(s): 11278133 Code(s): G47.30 - SLEEP APNEA, UNSPECIFIED Status: Chronic Priority: Medium Current Visit: Yes Qualifiers: Sleep apnea type: obstructive Qualified Code(s): G47.33 - Obstructive sleep apnea (adult) (pediatric) Annotation/Comment:: Patient just restarted his CPAP again yesterday evening and has been significantly noncompliant with this therapy the past. Note recent sleep study on 11/07/18 for CPAP titration. Note significant restless leg syndrome during ER evaluation. Initiate Mirapex (13) Restless leg syndrome SNOMED Code(s): 09510098 Code(s): G25.81 - RESTLESS LEGS SYNDROME Status: Chronic Priority: Medium Current Visit: Yes Annotation/Comment:: As above - Problem List Review Problem List Initiated/Reviewed/Updated: Yes - My Orders Last 24 Hours: My Active Orders 11/29/18 22:47 Cardiac Monitoring [RC] Q2HR EKG Documentation Completion [RC] ASDIRECTED Chest 1V Frontal [CR] Stat Sodium Chloride 0.9% [Saline Flush] 10 ml FLUSH ASDIRECTED PRN Obtain Past Medical Record [OM.PC] Urgent Peripheral IV Insertion Adult [OM.PC] Stat Resuscitation Status Stat 11/29/18 22:50 Blood Culture x2 Reflex Set [OM.PC] Urgent 11/29/18 22:55 CULTURE BLOOD [BC] Stat CULTURE BLOOD [BC] Stat 11/30/18 01:01 Nitroglycerin [Nitrostat] 0.4 mg SL ASDIRECTED PRN 11/30/18 01:05 Communication Order [RC] ROUTINE Height and Weight [RC] DAILY Intake and Output Strict [RC] ,18 Oxygen Therapy [RC] .PRN Pulse Oximetry [RC] .PRN Up With Assistance [RC] ASDIRECTED OCCULT BLOOD DIAGNOSTIC [OP] Stat Acetaminophen [Tylenol] 650 mg PO Q4H PRN Sodium Chloride 0.9% [Saline Flush] 10 ml FLUSH Q12HR PRN Temazepam [Restoril] 15 mg PO BEDTIME PRN Antiembolic Hose [OM.PC] Routine CHF Questionnaire [COMM] Routine DVT/VTE Prophylaxis Reflex [OM.PC] Routine GM Immunization Reflex [OM.PC] Click To Edit 11/30/18 01:06 Antiembolic Devices [RC] 08,20 Vaccines to be Administered [RC] .DISCHARGE 11/30/18 01:10 Pramipexole [Mirapex] 0.5 mg PO BEDTIME 11/30/18 01:11 Communication Order [RC] ROUTINE 11/30/18 01:15 H PYLORI STOOL ANTIGEN [MREF] ONETIME 11/30/18 01:26 Vaccines to be Administered [RC] .DISCHARGE 11/30/18 02:00 Furosemide [Lasix] 40 mg IVPUSH Q8H 11/30/18 05:11 EKG Documentation Completion [RC] ASDIRECTED 11/30/18 06:00 Ketorolac [Toradol] 15 mg IVPUSH Q6H PRN 11/30/18 07:30 metFORMIN [Glucophage] 500 mg PO BIDMEALS 11/30/18 08:00 Colchicine [Colcrys] 0.6 mg PO BID Lisinopril [Prinivil] 20 mg PO BID Magnesium Oxide 400 mg PO DAILY Potassium Chloride [Klor-Con M20] 20 meq PO TIDMEALS Pregabalin [Lyrica] 75 mg PO BID 11/30/18 08:49 Vital Signs [RC] Q4HR 11/30/18 09:00 Apixaban [Eliquis] 5 mg PO BID@0900,2100 11/30/18 12:00 CK W CKMB [CHEM] Q6H TROPONIN I [CHEM] Q6H 11/30/18 18:00 Diltiazem [Cardizem CD] 120 mg PO QPM Famotidine [Pepcid] 20 mg IVPUSH BID 11/30/18 20:00 atorvaSTATin [Lipitor] 10 mg PO BEDTIME 11/30/18 Breakfast Fluid Restriction [DIET] 12/01/18 05:11 CBC WITH AUTO DIFF [HEME] Routine CK W CKMB [CHEM] Routine COMPREHENSIVE METABOLIC PN,CMP [CHEM] Routine PRO B-TYPE NATRIUR PEPT,BNPPRO [CHEM] Routine TROPONIN I [CHEM] Routine URIC ACID [CHEM] Routine - Assessment Assessment:: as above - Plan Plan:: as above. Extensive precautions were given to the patient, who is in agreement with the treatment plan. Patient may need transfer to acute care depending on his clinical course. [facility] physician symptoms care later this morning.
[2018-11-30] MEDS: Apixaban 5 MG Tab PO SCH ×2 (09:56→20:43)
[2018-11-30] MEDS ORDERED: Diltiazem 120 MG Cap.CD PO SCH (18:00)
[2018-11-30] MEDS: Famotidine 20 MG/2 ML SDV IVPUSH SCH (18:28)
[2018-11-30] MEDS ORDERED: atorvaSTATin 10 MG Tab PO SCH (20:00)
[2018-12-01] MEDS: Furosemide 40 MG/4 ML VIAL IVPUSH SCH (01:03)
[2018-12-01] MEDS: Sodium Chloride 0.9% 10 ML Syringe FLUSH PRN (01:03)
[2018-12-01] MEDS: metFORMIN 500 MG Tab PO SCH (07:51)
[2018-12-01] MEDS: Magnesium Oxide 400 MG Tab PO SCH (07:51)
[2018-12-01] MEDS: Pregabalin 75 MG Cap PO SCH (07:52)
[2018-12-01] MEDS: Potassium Chloride 20 MEQ Tab.ER PO SCH (07:52)
[2018-12-01] MEDS: Lisinopril 20 MG Tab PO SCH (07:52)
[2018-12-01] MEDS: Colchicine 0.6 MG Tab PO SCH (07:52)
[2018-12-01] MEDS: Famotidine 20 MG/2 ML SDV IVPUSH SCH ×2 (07:56→08:13)
[2018-12-01] MEDS: Apixaban 5 MG Tab PO SCH ×2 (07:57→08:24)
[2018-12-01 08:16] LABS: CHLORIDE,CL 105 mmol/L (98-107); SODIUM,NA 143 mmol/L (136-145)
--- NOTE | 2018-12-01 11:25 | PCM.DCSUM1 ---
Discharge Summary - Hospital Course Brief History: Admitted for treatment of acute gout in addition to Afib/flutter with RVR. CHF. R/O CA protocol also initiated. Diagnosis: Stroke: No - Discharge Data Discharge Date: 12/01/18 Discharge Disposition: Home, Self-Care 01 Condition: Good - Referral to Home Health Primary Care Physician: Haroon Small MD - Discharge Diagnosis/Problem(s) (1) Atrial flutter SNOMED Code(s): 4438318 ICD Code: I48.92 - UNSPECIFIED ATRIAL FLUTTER Status: Acute Priority: High Current Visit: Yes Onset Date: ~11/29/18 Problem Details: Rate much improved over last 24 hrs. BP stable. Mild progression of patient's troponin I yesterday with subsequent normal levels x2. Call placed this morning to water pollution control inspector [facility] Digital Product Manager Dr. Warner. Patient reviewed. He recommended follow up with next week to consider medication changes that will address the Afib/Aflutter. Appointment obtained Tuesday with 's PA. Will continue patient on Cardiazem for now. initiated telephone consultation initially on 11/[address] [facility] with subsequent cardiology consultation at 08:40 hours 11/[address] Meredith, scrubber operator, who is in agreement with treatment plan and did not feel that a transfer to their facility for further cardiac workup is necessary at that time. She did review recent extensive workup in their facility , including recent heart catheterization and echocardiogram as per emergency room note. She was in agreement with diltiazem therapy, however suggested changed to sotalol, if patient's rhythm remained refractory to diltiazem. Cardiac ablation may be considered, if the patient fails on sotalol. Recurrent atrial flutter with rapid ventricular response on admission with previous cardioversion on 09/03/18 as above. Note recent discontinuation of his Toprol-XL therapy. No significant improvement initially with IV Lopressor, however overall good results with subsequent 10 mg of IV diltiazem. Note secondary to his significant cardiomegaly repeat cardioversion for his atrial flutter would likely be unsuccessful. The patient is already on Eliquis. (2) Dyslipidemia SNOMED Code(s): 938979695 ICD Code: E78.5 - HYPERLIPIDEMIA, UNSPECIFIED Status: Acute Priority: High Current Visit: Yes Onset Date: 12/13/17 Problem Details: Lipid panel good this morning. Patient did previously take Lipitor in the past, however stopped this secondary to the cost of this medication. He is trying to lose weight with weight loss in moderation advisable. Dietary information at time of discharge. Patient does not wish to continue the Lipitor after discharge for now and wishes to try dietary changes first. (3) Gout attack SNOMED Code(s): 936202241 ICD Code: M10.9 - GOUT, UNSPECIFIED Status: Acute Priority: High Current Visit: Yes Onset Date: ~11/28/18 Problem Details: Improved. History of recurrent gout attacks. IV Toradol given in the emergency room. Short-term additional colchicine for now. Patient has been noncompliant with his uric acid diet as above with dietary information to be provided at discharge. Consider initiation of allopurinol therapy once his current gout attack has resolved secondary to his history of recurrent gout attacks as above. To follow up next week with primary provider. Qualifiers: Gout site: elbow Gout etiology: idiopathic Laterality: left Qualified Code(s): M10.022 - Idiopathic gout, left elbow (4) Hypertension SNOMED Code(s): 88092745 ICD Code: I10 - ESSENTIAL (PRIMARY) HYPERTENSION Status: Acute Priority: High Current Visit: Yes Problem Details: Blood pressures significantly improved with significantly elevated blood pressures on arrival with recent discontinuation of his Cardura and Toprol XL as above. Overall good results with additional low-dose IV Lopressor and oral and IV diltiazem. Continue oral diltiazem for now. Qualifiers: Hypertension type: essential hypertension Qualified Code(s): I10 - Essential (primary) hypertension (5) Hypomagnesemia SNOMED Code(s): 098981333 ICD Code: E83.42 - HYPOMAGNESEMIA Status: Acute Priority: Medium Current Visit: Yes Onset Date: 11/30/18 Problem Details: Initiate magnesium oxide therapy with close follow-up by his regular providers at discharge. (6) Apnea, sleep SNOMED Code(s): 60850967 ICD Code: G47.30 - SLEEP APNEA, UNSPECIFIED Status: Chronic Priority: Medium Current Visit: Yes Problem Details: Patient just restarted his CPAP again yesterday evening and has been significantly noncompliant with this therapy the past. Note recent sleep study on 11/07/18 for CPAP titration. Note significant restless leg syndrome during ER evaluation. Initiated Mirapex Qualifiers: Sleep apnea type: obstructive Qualified Code(s): G47.33 - Obstructive sleep apnea (adult) (pediatric) (7) CHF (congestive heart failure) SNOMED Code(s): 79667746 ICD Code: I50.9 - HEART FAILURE, UNSPECIFIED Status: Chronic Priority: High Current Visit: Yes Problem Details: Mild CHF by clinical exam and chest x-ray, however significantly elevated BNP. Initiated IV Lasix therapy with caution secondary to his current gout attack, renal insufficiency, etc. Note recent echocardiogram on 11/21/18. Patient encouraged to be compliant with lasix doses Qualifiers: Heart failure type: combined systolic and diastolic Heart failure chronicity: acute on chronic Qualified Code(s): I50.43 - Acute on chronic combined systolic (congestive) and diastolic (congestive) heart failure (8) COPD (chronic obstructive pulmonary disease) SNOMED Code(s): 83538916 ICD Code: J44.9 - CHRONIC OBSTRUCTIVE PULMONARY DISEASE, UNSPECIFIED Status : Chronic Priority: Medium Current Visit: Yes Problem Details: COPD by chest x-ray with no previous therapy. PFTs once patient's condition has stabilized. Note patient has an additional history of sleep apnea and has been noncompliant with his CPAP. Weight loss in moderation and compliance with his CPAP strongly encouraged, which should also be beneficial for his hypertension. Qualifiers: COPD type: emphysema Emphysema type: panlobular Qualified Code(s): J43.1 - Panlobular emphysema (9) Coronary artery disease SNOMED Code(s): 88915185 ICD Code: I25.10 - ATHSCL HEART DISEASE OF [place] CORONARY ARTERY W/O ANG PCTRS Status: Chronic Priority: Medium Current Visit: Yes Problem Details: No Chest pain or anginal type symptoms. Normal troponin levels this morning. Qualifiers: Coronary Disease-Associated Artery/Lesion type: [place] artery [place] vs. transplanted heart: [place] heart Associated angina: without angina Qualified Code(s): I25.10 - Atherosclerotic heart disease of [place] coronary artery without angina pectoris (10) Diabetes mellitus SNOMED Code(s): 75551086 ICD Code: E11.9 - TYPE 2 DIABETES MELLITUS WITHOUT COMPLICATIONS Status: Chronic Priority: Medium Current Visit: Yes Problem Details: Patient does not take Accu-Cheks at home. Glycosylated hemoglobin 6.6 Note history of diabetic nephropathy and neuropathy. Continued dietary changes encouraged. Qualifiers: Diabetes mellitus type: type 2 Diabetes mellitus usp insulin use: without usp use Diabetes mellitus complication status: with kidney complications Diabetes mellitus complication detail: with chronic kidney disease Chronic kidney disease stage: stage 2 (mild) Qualified Code(s): E11.22 - Type 2 diabetes mellitus with diabetic chronic kidney disease; N18.2 - Chronic kidney disease, stage 2 (mild) (11) Osteoarthritis SNOMED Code(s): 421270675 ICD Code: M19.90 - UNSPECIFIED OSTEOARTHRITIS, UNSPECIFIED SITE Status: Chronic Priority: Medium Current Visit: Yes Problem Details: Otherwise stable by patient history. Qualifiers: Osteoarthritis location: multiple joints Osteoarthritis type: primary Qualified Code(s): M15.0 - Primary generalized (osteo)arthritis (12) Renal insufficiency SNOMED Code(s): 806020961, 639443710 ICD Code: N28.9 - DISORDER OF KIDNEY AND URETER, UNSPECIFIED Status: Chronic Priority: Medium Current Visit: Yes Problem Details: The patient is already on lisinopril. Note diabetic nephropathy and history of CHF. Renal function stable during stay (13) Restless leg syndrome SNOMED Code(s): 26731262 ICD Code: G25.81 - RESTLESS LEGS SYNDROME Status: Chronic Priority: Medium Current Visit: Yes Problem Details: As above - Patient Summary/Data Complications: none Hospital Course: Patient noted to have improvement both in gout-related pain/inflammation as well as heart rate during stay. Several calls placed to [facility] for assistance in treatment planning. Patient encouraged to continue to make dietary and lifestyle changes to help with his multiple chronic medical issues, and also to be compliant with medication regimens. Decreased ETOH consumption encouraged. Follow up appointments made for Tuesday with both patient's primary provider and Cardiology. Patient does refuse to continue Metformin and Lipitor at this time. Precautions reviewed as well as possible poor outcome scenarios if the above issues are not addressed appropriately by patient. - Patient Instructions Diet: Heart Healthy Diet (Low glycemic diet) Fluid Restriction: 2000 mL Activity: As Tolerated, No Lifting Over 25 Pounds, No Strenuous Activities Driving: May Drive Today Showering/Bathing: May Shower Other/Special Instructions: Follow up at local clinic Tuesday at 0945 or reschedule to be seen Tuesday or Tuesday after you are seen and have recommendations made by Cardiology. You have a Cardiology appointment at [facility] at 3PM to discuss the ongoing issues with Afib/Aflutter and high heart rate. Highly recommend continued diet changes as discussed and taking a break from alcohol (also discussed) to assist in weight loss and levels of inflammation. Remember that you have chosen to discontinue the Metformin and Lipitor and relay that to your physicians. Follow up otherwise as needed if you have problems. - Discharge Plan *PRESCRIPTION DRUG MONITORING PROGRAM REVIEWED*: Not Applicable *COPY OF PRESCRIPTION DRUG MONITORING REPORT IN PATIENT SAMMI: Not Applicable Prescriptions/Med Rec: Diltiazem [Cardizem CD] 120 mg PO QPM #30 cap.cd Pramipexole [Mirapex] 0.5 mg PO BEDTIME #30 tablet Home Medications: Home Meds Apixaban [Eliquis] 5 mg PO BID@0900,2100 12/13/17 [History] Pregabalin [Lyrica] 75 mg PO BID 01/08/18 [History] Colchicine [Colcrys] 0.6 mg PO DAILY PRN 11/29/18 [History] Furosemide 20 mg PO BID 11/29/18 [History] Nitroglycerin 0.4 mg SL ASDIRECTED PRN 11/30/18 [History] Acetaminophen [Tylenol] 650 mg PO Q4H PRN tablet 12/01/18 [Rx] Diltiazem [Cardizem CD] 120 mg PO QPM #30 cap.cd 12/01/18 [Rx] Lisinopril [Prinivil] 20 mg PO BID tablet 12/01/18 [Rx] Magnesium Oxide 400 mg PO DAILY tablet 12/01/18 [Rx] Potassium Chloride [Klor-Con M20] 20 meq PO TIDMEALS tab.er 12/01/18 [Rx] Pramipexole [Mirapex] 0.5 mg PO BEDTIME #30 tablet 12/01/18 [Rx] Patient Handouts: Low-Purine Eating Plan, Gout, [id number], Heart Failure, [id number], Living With Heart Failure Forms: ED Department Discharge Referrals: Haroon Small MD [Primary Care Provider] - - Discharge Summary/Plan Comment DC Time >30 min.: No - General Info Date of Service: 12/01/18 Admission Dx/Problem (Free Text: 1. Recurrent atrial flutter with rapid ventricular response 2. CHF 3. Coronary artery disease 4. gout attack Subjective Update: Feels much improved. Would like to be discharged home. Functional Status: Reports: Pain Controlled, Tolerating Diet, Ambulating, Urinating. Denies: New Symptoms - Review of Systems General: Reports: No Symptoms HEENT: Reports: No Symptoms Pulmonary: Reports: No Symptoms. Denies: Shortness of Breath, Pleuritic Chest Pain, Cough, Sputum Cardiovascular: Reports: Edema. Denies: Chest Pain, Palpitations, Dyspnea on Exertion, Orthopnea Gastrointestinal: Reports: No Symptoms Genitourinary: Reports: No Symptoms Musculoskeletal: Reports: Other (improving gout pain) Skin: Reports: No Symptoms Neurological: Reports: No Symptoms Psychiatric: Reports: No Symptoms - Patient Data Vitals - Most Recent: Last Vital Signs Temp 36.5 C 12/01/18 08:14 Pulse 87 12/01/18 08:14 Resp 16 12/01/18 08:14 BP 138/94 H 12/01/18 08:14 Pulse Ox 97 12/01/18 08:14 Weight - Most Recent: 146.782 kg I&O - Last 24 hours: Intake & Output 11/30/18 12/01/18 12/01/18 22:59 06:59 14:59 Intake Total 600 250 Output Total 600 1100 Balance 0 -850 Lab Results - Last 24 hrs: Laboratory Results - last 24 hr 11/30/18 11/30/18 12/01/18 Range/Units 12:10 18:59 06:35 WBC 4.8 (4.0-10.2) K/uL RBC 4.50 (4.33-5.41) M/uL Hgb 12.8 L (13.1-16.8) g/dL Hct 39.7 (39.0-49.0) % MCV 88.2 (84.0-98.0) fL MCH 28.4 (28.2-33.3) pg MCHC 32.2 (31.7-36.0) g/dL RDW 14.2 H (11.2-14.1) % Plt Count 154 (150-350) K/uL Neut % (Auto) 65.6 (45.0-80.0) % Lymph % (Auto) 21.6 (10.0-50.0) % [place]ayer % (Auto) 9.2 (2.0-14.0) % Eos % (Auto) 2.5 (0.0-5.0) % Baso % (Auto) 1.1 (0.0-2.0) % Neut # (Auto) 3.12 (1.40-7.00) K/uL Lymph # (Auto) 1.03 (0.50-3.50) K/uL [place]ayer # (Auto) 0.44 (0.00-1.00) K/uL Eos # (Auto) 0.12 (0.00-0.50) K/uL Baso # (Auto) 0.05 (0.00-0.20) K/uL Sodium (136-145) mmol/L Potassium (3.5-5.1) mmol/L Chloride (98-107) mmol/L Carbon Dioxide (21.0-32.0) mmol/L BUN (7-18) mg/dL Creatinine (0.51-1.17) mg/dL Est Cr Clr Drug Dosing mL/min Estimated GFR (MDRD) mL/min Glucose (74-106) mg/dL POC Glucose 151 H (65-110) mg/dl Uric Acid (2.6-7.2) mg/dL Calcium (8.5-10.1) mg/dL Magnesium (1.8-2.4) mg/dL Total Bilirubin (0.2-1.0) mg/dL AST (15-37) U/L ALT (12-78) U/L Alkaline Phosphatase (46-116) IU/L Creatine Kinase 42 (26-308) U/L Creatine Kinase Index 3.6 H (0.0-2.5) % CK-MB (CK-2) 1.50 (0.00-3.60) ng/mL Troponin I 0.048 (0.000-0.056) ng/mL NT-Pro-B Natriuret Pep (0-125) pg/mL Total Protein (6.4-8.2) g/dL Albumin (3.4-5.0) g/dL 12/01/18 Range/Units 06:35 WBC (4.0-10.2) K/uL RBC (4.33-5.41) M/uL Hgb (13.1-16.8) g/dL Hct (39.0-49.0) % MCV (84.0-98.0) fL MCH (28.2-33.3) pg MCHC (31.7-36.0) g/dL RDW (11.2-14.1) % Plt Count (150-350) K/uL Neut % (Auto) (45.0-80.0) % Lymph % (Auto) (10.0-50.0) % [place]ayer % (Auto) (2.0-14.0) % Eos % (Auto) (0.0-5.0) % Baso % (Auto) (0.0-2.0) % Neut # (Auto) (1.40-7.00) K/uL Lymph # (Auto) (0.50-3.50) K/uL [place]ayer # (Auto) (0.00-1.00) K/uL Eos # (Auto) (0.00-0.50) K/uL Baso # (Auto) (0.00-0.20) K/uL Sodium 143 (136-145) mmol/L Potassium 3.9 (3.5-5.1) mmol/L Chloride 105 (98-107) mmol/L Carbon Dioxide 27.8 (21.0-32.0) mmol/L BUN 17 (7-18) mg/dL Creatinine 1.08 (0.51-1.17) mg/dL Est Cr Clr Drug Dosing 84.57 mL/min Estimated GFR (MDRD) > 60 mL/min Glucose 134 H (74-106) mg/dL POC Glucose (65-110) mg/dl Uric Acid 10.0 H (2.6-7.2) mg/dL Calcium 9.1 (8.5-10.1) mg/dL Magnesium 1.8 (1.8-2.4) mg/dL Total Bilirubin 0.8 (0.2-1.0) mg/dL AST 32 (15-37) U/L ALT 52 (12-78) U/L Alkaline Phosphatase 116 (46-116) IU/L Creatine Kinase 25 L (26-308) U/L Creatine Kinase Index 3.2 H (0.0-2.5) % CK-MB (CK-2) 0.80 (0.00-3.60) ng/mL Troponin I 0.051 (0.000-0.056) ng/mL NT-Pro-B Natriuret Pep 872 H (0-125) pg/mL Total Protein 6.7 (6.4-8.2) g/dL Albumin 3.2 L (3.4-5.0) g/dL HUANG Results - Last 24 hrs: Microbiology 11/29/18 22:55 Aerobic Blood Culture - Preliminary Blood - Venous NO GROWTH AFTER 1 DAY Anaerobic Blood Culture - Preliminary NO GROWTH AFTER 1 DAY 11/29/18 22:55 Aerobic Blood Culture - Preliminary Blood - Venous - Lab Draw NO GROWTH AFTER 1 DAY Anaerobic Blood Culture - Preliminary NO GROWTH AFTER 1 DAY Med Orders - Current: Current Medications Acetaminophen (Tylenol) 650 mg PO Q4H PRN PRN Reason: Pain Apixaban (Eliquis) 5 mg PO BID@0900,2100 [facility] Last Admin: 12/01/18 08:24 Dose: Not Given Atorvastatin Calcium (Lipitor) 10 mg PO BEDTIME [facility] Last Admin: 11/30/18 19:24 Dose: 10 mg Colchicine (Colcrys) 0.6 mg PO BID [facility] Last Admin: 12/01/18 07:52 Dose: 0.6 mg Diltiazem HCl (Cardizem Cd) 120 mg PO QPM [facility] Last Admin: 11/30/18 18:27 Dose: 120 mg Famotidine (Pepcid) 20 mg IVPUSH BID [facility] Last Admin: 12/01/18 08:13 Dose: Not Given Furosemide (Lasix) 40 mg IVPUSH Q8H [facility] Last Admin: 12/01/18 01:03 Dose: 40 mg Ketorolac Tromethamine (Toradol) 15 mg IVPUSH Q6H PRN PRN Reason: Pain (moderate 4-6) Stop: 12/01/18 18:00 Last Admin: 11/30/18 20:43 Dose: 15 mg Lisinopril (Prinivil) 20 mg PO BID [facility] Last Admin: 12/01/18 07:52 Dose: 20 mg Magnesium Oxide (Magnesium Oxide) 400 mg PO DAILY [facility] Last Admin: 12/01/18 07:51 Dose: 400 mg Metformin HCl (Glucophage) 500 mg PO BIDMEALS [facility] Last Admin: 12/01/18 07:51 Dose: 500 mg Nitroglycerin (Nitrostat) 0.4 mg SL ASDIRECTED PRN PRN Reason: Chest Pain Potassium Chloride (Klor-Con M20) 20 meq PO TIDMEALS [facility] Last Admin: 12/01/18 07:52 Dose: 20 meq Pramipexole Dihydrochloride (Mirapex) 0.5 mg PO BEDTIME [facility] Last Admin: 11/30/18 19:24 Dose: 0.5 mg Pregabalin (Lyrica) 75 mg PO BID [facility] Last Admin: 12/01/18 07:52 Dose: 75 mg Sodium Chloride (Saline Flush) 10 ml FLUSH ASDIRECTED PRN PRN Reason: Keep Vein Open Last Admin: 12/01/18 01:03 Dose: 10 ml Sodium Chloride (Saline Flush) 10 ml FLUSH Q12HR PRN PRN Reason: Keep Vein Open Temazepam (Restoril) 15 mg PO BEDTIME PRN PRN Reason: Insomnia Discontinued Medications Diltiazem HCl (Diltiazem) 20 mg IVPUSH ONETIME ONE Stop: 11/29/18 23:17 Last Admin: 11/29/18 23:19 Dose: 20 mg Diltiazem HCl (Cardizem Cd) 120 mg PO ONETIME ONE Stop: 11/29/18 23:33 Last Admin: 11/29/18 23:40 Dose: 120 mg Diphtheria/Tetanus/Acell Pertussis (Adacel) 0.5 ml IM .ONCE ONE Stop: 11/30/18 12:01 Last Admin: 11/30/18 12:25 Dose: 0.5 ml Famotidine (Pepcid) 40 mg IVPUSH ONETIME ONE Stop: 11/29/18 22:52 Last Admin: 11/29/18 23:04 Dose: 40 mg Ketorolac Tromethamine (Toradol) 30 mg IVPUSH ONETIME ONE Stop: 11/29/18 22:51 Last Admin: 11/29/18 23:09 Dose: 30 mg Metoprolol Tartrate (Lopressor) 5 mg IVPUSH ONETIME ONE Stop: 11/29/18 22:48 Last Admin: 11/29/18 22:59 Dose: 5 mg Pneumococcal Polyvalent Vaccine (Pneumovax 23) 0.5 ml IM .ONCE ONE Stop: 11/30/18 12:01 Last Admin: 11/30/18 12:20 Dose: 0.5 ml - Exam Quality Assessment: Reports: DVT Prophylaxis General: Reports: Alert, Oriented, Cooperative, No Acute Distress HEENT: Reports: Pupils Equal, Pupils Reactive, EOMI, Mucous Membr. Moist/[place] Neck: Reports: Supple Lungs: Reports: Clear to Auscultation, Normal Respiratory Effort Cardiovascular: Reports: Irregular Rhythm. Denies: Murmurs GI/Abdominal Exam: Normal Bowel Sounds, Soft, Non-Tender, No Distention (Male) Exam: Deferred Rectal (Males) Exam: Deferred Back Exam: Reports: Normal Inspection Extremities: Non-Tender, Normal Capillary Refill, Pedal Edema (mild, bilateral) , Other (mild tenderness left elbow/improved per patient) Skin: Reports: Warm, Dry, Intact Neurological: Reports: No New Focal Deficit Psy/Mental Status: Reports: Alert, Normal Affect, Normal Mood EKG INTERPRETATION EKG Date: 12/01/18 Time: 07:25 Rhythm: A-Fib Rate (Beats/Min): 90 [place]: Normal P-Wave: Variable QRS: Normal ST-T: Other (no obvious changes suggestive of acute ischemia noted) QT: Normal Comparison: Change From Previous EKG (atrial flutter noted yesterday)
== END 2018-12-01 12:30 | disposition home or self-care (01) ==
LOC: LL.ED 22:25 → LL.MS 11-30 00:30 → UNDOADMOB 11-30 00:30
PROVIDERS: ADMIT Family Medicine; ATTEND Emergency Medicine
DX: I48.92 Unspecified atrial flutter (principal); M10.022 Idiopathic gout, left elbow; I25.10 Atherosclerotic heart disease of native coronary artery without angina pectoris; I13.0 Hypertensive heart and chronic kidney disease with heart failure and stage 1 through stage 4 chronic kidney disease, or unspecified chronic kidney disease; N18.2 Chronic kidney disease, stage 2 (mild); I50.9 Heart failure, unspecified; E11.22 Type 2 diabetes mellitus with diabetic chronic kidney disease; J43.1 Panlobular emphysema; E78.5 Hyperlipidemia, unspecified; E83.42 Hypomagnesemia; N28.9 Disorder of kidney and ureter, unspecified; M15.0 Primary generalized (osteo)arthritis; G47.33 Obstructive sleep apnea (adult) (pediatric); G25.81 Restless legs syndrome; K21.9 Gastro-esophageal reflux disease without esophagitis; E11.21 Type 2 diabetes mellitus with diabetic nephropathy; Z79.899 Other long term (current) drug therapy; Z79.01 Long term (current) use of anticoagulants; Z79.84 Long term (current) use of oral hypoglycemic drugs
CPT/HCPCS: 36415; 71045; 71046; 80053; 80061; 82550; 82553; 82962; 83036; 83605; 83735; 83880; 84443; 84484; 84550; 85025; 85610; 85730; 87040; 90471; 90715; 90732; 93005; 96374; 96375; 96376; 99284-25; A9270-GY; G0009; G0378; G0480; J1885; J1940; J3490

== ENCOUNTER 2018-12-15 15:21 | Emergency (ER) | payer BC ==
[2018-12-15] MEDS ORDERED: Diltiazem IR 60 MG Tab PO ONE ×3 (15:34→18:34)
--- NOTE | 2018-12-15 16:56 | EDM.PDOC ---
ED HPI GENERAL MEDICAL PROBLEM - General Chief Complaint: General Stated Complaint: high Blood Pressure Time Seen by Provider: 12/15/18 16:50 Source of Information: Reports: Patient History Limitations: Reports: No Limitations - History of Present Illness INITIAL COMMENTS - FREE TEXT/NARRATIVE: Patient is a 58-year-old with history of atrial fibrillation hypertension recently the copy messenger changed some medications and discontinued the diltiazem at this time we will restart the diltiazem. Onset: Gradual Duration: Day(s):, Getting Worse Severity: Moderate Improves with: Reports: Medication Associated Symptoms: Reports: No Other Symptoms - Related Data Allergies Allergy/AdvReac Type Severity Reaction Status Date / Time No Known Allergies Allergy Verified 11/29/18 22:33 Home Meds: Home Meds Apixaban [Eliquis] 5 mg PO BID@0900,2100 12/13/17 [History] Pregabalin [Lyrica] 75 mg PO BID 01/08/18 [History] Colchicine [Colcrys] 0.6 mg PO DAILY PRN 11/29/18 [History] Furosemide 20 mg PO BID 11/29/18 [History] Nitroglycerin 0.4 mg SL ASDIRECTED PRN 11/30/18 [History] Acetaminophen [Tylenol] 650 mg PO Q4H PRN tablet 12/01/18 [Rx] Lisinopril [Prinivil] 20 mg PO BID tablet 12/01/18 [Rx] Pramipexole [Mirapex] 0.5 mg PO BEDTIME #30 tablet 12/01/18 [Rx] Sotalol HCl [Sotalol] 80 mg PO BID 12/15/18 [History] Past Medical History HEENT History: Reports: Impaired Vision, Other (See Below) Other HEENT History: Patient wears reading glasses after previous LASIK surgery as below. Cardiovascular History: Reports: Afib, Arrhythmia, Blood Clots/VTE/DVT, CAD, Cardiomyopathy, Heart Failure, High Cholesterol, Hypertension, SC, PVD, Other ( See Below) Other Cardiovascular History: Cardioversion for atrial flutter on 09/03/18 and . Non-STEMI on 12/13/17 with 90% stenosis of the second diagonal of the left coronary artery not amenable to PTCA/stent. Atrial flutter with rapid ventricular response in August 2018 requiring cardioversion as below. History of left leg DVT with secondary bilateral PE in about 2014 with current Eliquis therapy. Peripheral vascular disease of the legs bilaterally with surgery as below. Left atrial enlargement, cardiomegaly, and mild aortic root dilatation by echocardiogram in 2009 as below. CHF with additional diastolic component. Small pericardial effusion by echocardiogram. Respiratory History: Reports: Bronchitis, Recurrent, COPD, Intubation, Previous , PE, Sleep Apnea Other Respiratory History: Patient has been noncompliant with his CPAP. Multiple benign right upper lobe pulmonary nodules by CT scans as below. Gastrointestinal History: Reports: Colon Polyp, Diverticulosis, Hemorrhoids, Other (See Below) Other Gastrointestinal History: LFTs elevation likely secondary to his fatty liver with hepatosplenomegaly by CT scan. Benign hyperplastic colonic polyp at 25 cm removed by colonoscopy in 2007 as below. Genitourinary History: Reports: BPH, Chronic Renal Insuffiency, Diabetic Nephropathy, Hydronephrosis, Renal Calculus, Other (See Below) Other Genitourinary History: History of recurrent urolithiasis with initial right-sided urolithiasis in 2003 and subsequent episodes in February 2018 with last episode on 01/08/18 with secondary right-sided hydronephrosis from a 1 cm distal stone requiring procedure as below. Benign left renal cyst. Musculoskeletal History: Reports: Arthritis, Back Pain, Chronic, Fracture, Gout , Neck Pain, Chronic, Osteoarthritis, Other (See Below) Other Musculoskeletal History: Digit #5 fracture of the left hand as a teenager. Midshaft right radial and ulnar fracture at age 43. Neurological History: Reports: Concussion, Head Trauma, Neuropathy, Diabetic, Neuropathy, Peripheral, TIA, Other (See Below) Other Neuro History: Restless leg syndrome. Head Concussions 2 at age 35 and 43. Questionable TIA in December 2017 with negative MRI. Psychiatric History: Reports: Anxiety, Depression Endocrine/Metabolic History: Reports: Diabetes, Type I, Diabetes, Type II, IDDM , Obesity/BMI 30+, Other (See Below) Other Endocrine/Metabolic History: History of AODM with previous occasional insulin use Hematologic History: Reports: None Immunologic History: Reports: None Oncologic (Cancer) History: Reports: None Dermatologic History: Reports: Venous Stasis Dermatitis - Infectious Disease History Infectious Disease History: Reports: Chicken Pox, Measles, Shingles - Past Surgical History Head Surgeries/Procedures: Reports: None HEENT Surgical History: Reports: LASIK, Oral Surgery Other HEENT Surgeries/Procedures: Hamlin teeth extraction 4 at age 19. LASIK bilaterally in 1996. Cardiovascular Surgical History: Reports: Vascular Surgery, Other (See Below) Other Cardiovascular Surgeries/Procedures: Electrocardioversion for atrial flutter on 09/03/18. Left leg stent placement in 2013. Respiratory Surgical History: Reports: None GI Surgical History: Reports: Appendectomy, Colonoscopy, Hernia, Inguinal, Hernia Repair/Other, Polypectomy, Other (See Below) Other GI Surgeries/Procedures: Appendectomy at age 11. Colonoscopy with concomitant umbilical hernia repair on 02/22/08 with previous bilateral inguinal hernia repairs. Male Surgical History: Reports: None, Kidney Stone Extraction, Renal Calculus , Other (See Below) Other Male Surgeries/Procedures: Right ureteral stent placement, cystoscopy, and stone extraction on 01/11/18. Endocrine Surgical History: Reports: None Neurological Surgical History: Reports: Discectomy, Laminectomy, Lumbar Spine, Other (See Below) Other Neurological Surgeries/Procedures: Laser laminectomy and discectomy in the lumbar region in 2011. Musculoskeletal Surgical History: Reports: None Oncologic Surgical History: Reports: None Dermatological Surgical History: Reports: None - Past Imaging History Past Imaging History: Reports: Angiography (Positive Heart catheterization on .), Cardiac Echo (Last echocardiogram on 11/21/18 with ejection fraction of 5560 percent and findings as above. Trans-esophageal echocardiogram performed on 09/03/18 at time of cardioversion. Previous echocardiograms on 12/15 and 01/21/10.), CAT Scan (Negative CTA of the chest for PE on 11/15/18, , 12/14/14 [address] 06/22/16. CT of the abdomen and pelvis on with positive findings as above. CT of the chest on 02/12/18.), MRI (Brain on 12/15/17. Lumbar spine on 07/11/11.), Sleep Study (Last sleep study including CPAP titration on 11/07.), Ultrasound (Renal ultrasound on 02/22/18, 01/09/18, 10/21/17 and 02/04/04.) , Venous Doppler (Bilateral 10/17/15 with left-sided study on 06/23/16.), Other ( See Below) (IVP on 02/04/04.) Social & Family History - Family History HEENT: Reports: Cataract, Other (See Below) Other HEENT Family History: Multiple paternal aunts and uncles with cataracts. Cardiac: Reports: Heart Murmur, Hypertension, Other (See Below) Other Cardiac Family History: Paternal uncle with valvular disease secondary to rheumatic fever. Hypertension in parents. Respiratory: Reports: Sleep Apnea, Other (See Below) Other Respiratory Family Hisory: Mother with sleep apnea. GI: Reports: Cholelithiasis, Other (See Below) Other GI Family History: Father with cholelithiasis. : Reports: Renal Calculus, Other (See Below) Other Family History: Multiple paternal uncles with urolithiasis. OBGYN: Reports: None Musculoskeletal: Reports: Arthritis, Gout, Osteoarthritis, Other (See Below) Other Musculoskeletal Family History: Father with gout and osteoarthritis. Neurological: Reports: CVA, Other (See Below) Other Neurological Family History: Maternal grandfather with CVA in his 70s. Psychiatric: Reports: None Endocrine/Metabolic: Reports: Diabetes, type II, IDDM, Other (See Below) Other Endocrine/Metabolic Family History: Mother and paternal uncle with IDDM. Hematologic: Reports: Other (See Below) Other Hematologic Family History: Maternal uncle with unknown type of rare blood disease. Immunologic: Reports: None Dermatologic: Reports: None Oncologic: Reports: Breast, Prostate, Other (See Below) Other Oncologic Family History: Mother with breast cancer at age 72. Paternal uncle with prostate cancer in his 80s. - Tobacco Use Smoking Status *Q: Never Smoker Second Hand Smoke Exposure: No - Caffeine Use Caffeine Use: Reports: None - Recreational Drug Use Recreational Drug Use: No - Living Situation & Occupation Living situation: Reports: (1981. 2 children), with Family () Occupation: Employed ([employer]) ED ROS GENERAL - Review of Systems Review Of Systems: See Below Constitutional: Reports: No Symptoms HEENT: Reports: No Symptoms Respiratory: Reports: No Symptoms Cardiovascular: Reports: Blood Pressure Problem Endocrine: Reports: No Symptoms GI/Abdominal: Reports: No Symptoms : Reports: No Symptoms Musculoskeletal: Reports: No Symptoms Skin: Reports: No Symptoms Neurological: Reports: No Symptoms Psychiatric: Reports: No Symptoms Hematologic/Lymphatic: Reports: No Symptoms ED EXAM, GENERAL - Physical Exam Exam: See Below Exam Limited By: No Limitations General Appearance: Alert, WD/WN, No Apparent Distress Ears: Normal External Exam, Normal Canal, Hearing Grossly Normal, Normal TMs Ear Exam: Bilateral Ear: Auricle Normal, Canal Normal, TM normal Nose: Normal Inspection, Normal Mucosa, No Blood Throat/Mouth: Normal Inspection, Normal Lips, Normal Teeth, Normal Gums, Normal Oropharynx, Normal Voice, No Airway Compromise Head: Atraumatic, Normocephalic Neck: Normal Inspection, Supple, Non-Tender, Full Range of Motion Respiratory/Chest: No Respiratory Distress, Lungs Clear, Normal Breath Sounds, No Accessory Muscle Use, Chest Non-Tender Cardiovascular: No Edema, No Gallop, No JVD, No Murmur, No Rub, Tachycardia, Irregularly Irregular GI/Abdominal: Normal Bowel Sounds, Soft, Non-Tender, No Organomegaly, No Distention, No Abnormal Bruit, No Mass (Male) Exam: Deferred Rectal (Males) Exam: Deferred Back Exam: Normal Inspection, Full Range of Motion, NT Extremities: Normal Inspection, Normal Range of Motion, Non-Tender, Normal Capillary Refill, No Pedal Edema Neurological: Alert, Oriented, CN II-XII Intact, Normal Cognition, Normal Gait, Normal Reflexes, No Motor/Sensory Deficits Psychiatric: Normal Affect, Normal Mood Skin Exam: Warm, Dry, Intact, Normal Color, No Rash Lymphatic: No Adenopathy Course - Vital Signs Last Recorded V/S: Last Vital Signs Temp 97.3 F 12/15/18 15:23 Pulse 99 12/15/18 15:23 Resp 18 12/15/18 15:23 BP 153/132 H 12/15/18 15:23 Pulse Ox 96 12/15/18 15:23 - Orders/Labs/Meds Meds: Medications Discontinued Medications Generic Name Dose Route Start Last Admin Trade Name Freq PRN Reason Stop Dose Admin Diltiazem HCl 60 mg 12/15/18 15:34 12/15/18 15:41 Cardizem PO 12/15/18 15:35 60 mg ONETIME ONE Administration Diltiazem HCl 60 mg 12/15/18 16:42 12/15/18 16:49 Cardizem PO 12/15/18 16:43 60 mg ONETIME ONE Administration Departure - Departure Time of Disposition: 17:00 Disposition: Home, Self-Care 01 Condition: Good Clinical Impression: Hypertension Qualifiers: Hypertension type: essential hypertension Qualified Code(s): I10 - Essential ( primary) hypertension - Discharge Information *PRESCRIPTION DRUG MONITORING PROGRAM REVIEWED*: No *COPY OF PRESCRIPTION DRUG MONITORING REPORT IN PATIENT SAMMI: No Referrals: Haroon Small MD [Primary Care Provider] - Care Plan Goals: Patient is to continue and restart diltiazem once in the morning as ordered in the past
== END 2018-12-15 19:30 | disposition home or self-care (01) ==
LOC: LL.ED 15:21
DX: I13.0 Hypertensive heart and chronic kidney disease with heart failure and stage 1 through stage 4 chronic kidney disease, or unspecified chronic kidney disease (principal); E13.22 Other specified diabetes mellitus with diabetic chronic kidney disease; N18.9 Chronic kidney disease, unspecified; I50.9 Heart failure, unspecified; E13.42 Other specified diabetes mellitus with diabetic polyneuropathy; I25.10 Atherosclerotic heart disease of native coronary artery without angina pectoris; I48.92 Unspecified atrial flutter; I48.91 Unspecified atrial fibrillation; J44.9 Chronic obstructive pulmonary disease, unspecified; I25.2 Old myocardial infarction; E66.9 Obesity, unspecified; Z68.41 Body mass index [BMI] 40.0-44.9, adult; Z86.718 Personal history of other venous thrombosis and embolism; Z79.899 Other long term (current) drug therapy; Z79.01 Long term (current) use of anticoagulants
CPT/HCPCS: 99284; A9270

== ENCOUNTER 2019-01-31 15:00 | Inpatient (IN) | payer BC ==
[2019-01-31] MEDS ORDERED: Famotidine 20 MG/2 ML SDV IVPUSH ONE (15:23)
--- NOTE | 2019-01-31 15:23 | EDM.PDOC ---
ED HPI GENERAL MEDICAL PROBLEM - General Chief Complaint: Cardiovascular Problem Stated Complaint: a-fib Time Seen by Provider: 01/31/19 15:15 Source of Information: Reports: Old Records ([facility] chart/EMR), Other ([facility] progress note from 01/30/19. Transfer records from hospitalization in [place], [place]) History Limitations: Reports: No Limitations - History of Present Illness INITIAL COMMENTS - FREE TEXT/NARRATIVE: Patient drove himself to the emergency room via private automobile for evaluation of refractory atrial fibrillation after initial evaluation at [facility] on 01/30/19. Note that the patient was recently hospitalized in [place] with a right cerebellar CVA with complications as below, including recurrent atrial fibrillation/flutter, acute respiratory failure, etc.. He has had multiple medication changes both by his providers in [place] and also through our clinic. Note that there has been some problems with medication noncompliance secondary to these medications changes, delay in receiving refills , etc. with patient uncertain about his exact current medical therapy, including any recently missed doses. The patient denies any chest pain/pressure , dizziness, orthostasis, orthopnea, diaphoresis, paresthesias, recent decreased exercise tolerance, or any other anginal-type symptoms. No recent history of abdominal pain, heartburn, nausea, diarrhea, melena, gross hematochezia, or any food intolerance, including fatty foods, etc. with a normal bowel movement yesterday. He denies any gross hematuria, colic, or other UTI symptoms. The patient also denies any recent fever, cough, wheezing, dyspnea , etc.. He denies any recent headaches, visual changes, or change in his neurological status with stable dysarthria and dystaxia after recent CVA as below with physical therapy earlier today. He denies any current pain or discomfort. Onset: Gradual Onset Date: 01/30/19 Duration: Constant, Getting Worse, Other (No pain) Location: Denies: Head, Face, Neck, Chest, Abdomen, Back, Upper Extremity, Left , Upper Extremity, Right, Lower Extremity, Left, Radiates to Quality: Reports: Same as Previous Episode Severity: Moderate Improves with: Reports: None Worsens with: Reports: None Context: Reports: Other (As above). 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) - Related Data Allergies Allergy/AdvReac Type Severity Reaction Status Date / Time No Known Allergies Allergy Verified 01/31/19 15:13 Home Meds: Home Meds Apixaban [Eliquis] 5 mg PO BID@0900,2100 12/13/17 [History] Pregabalin [Lyrica] 75 mg PO BID 01/08/18 [History] Colchicine [Colcrys] 0.6 mg PO DAILY PRN 11/29/18 [History] Nitroglycerin 0.4 mg SL ASDIRECTED PRN 11/30/18 [History] Acetaminophen [Tylenol] 650 mg PO Q4H PRN tablet 12/01/18 [Rx] Digoxin 125 mcg PO DAILY 01/31/19 [History] Diltiazem HCl [Diltiazem 24Hr ER] 180 mg PO DAILY 01/31/19 [History] Furosemide 40 mg PO DAILY 01/31/19 [History] Glucosamine Sulfate 2KCl [Glucosamine] 1 tab PO DAILY 01/31/19 [History] atorvaSTATin Calcium [Atorvastatin Calcium] 80 mg PO BEDTIME 01/31/19 [History] predniSONE [Prednisone] 10 mg PO DAILY 01/31/19 [History] Past Medical History HEENT History: Reports: Impaired Vision, Other (See Below). Denies: Allergic Rhinitis, Cataract, Glaucoma, Hard of Hearing, Macular Degeneration, Otitis Media, Retinal Detachment Other HEENT History: Patient wears reading glasses after previous LASIK surgery as below. Cardiovascular History: Reports: Afib, Arrhythmia, Blood Clots/VTE/DVT, CAD, Cardiomyopathy, Heart Failure, High Cholesterol, Hypertension, VT, PVD, Other ( See Below). Denies: Aneurysm, Heart Murmur, Pulmonary Hypertension, Syncope Other Cardiovascular History: Symptomatic moderate bradycardia likely secondary to medications at time of hospitalization in [place] in January 2019. Cardioversion for atrial flutter on 09/03/18 and 12/05/18. Non-STEMI on 12/13/17 with 90% stenosis of the second diagonal of the left coronary artery not amenable to PTCA/stent. Atrial flutter with rapid ventricular response in August 2018 requiring cardioversion as below. History of left leg DVT with secondary bilateral PE in about 2014 with current Eliquis therapy. Peripheral vascular disease of the legs bilaterally with surgery as below. Left atrial enlargement, concentric cardiomegaly, and mild aortic root dilatation by echocardiogram in 2009 as below. CHF with additional diastolic component. Small pericardial effusion by distant echocardiogram. Last Echocardiogram on 01/24/19 as below. Dyslipidemia. Respiratory History: Reports: Bronchitis, Recurrent, COPD, Intubation, Previous , PE, Sleep Apnea. Denies: Asthma, Intubation, Difficult, Pneumothorax, Pulmonary Fibrosis, TB Other Respiratory History: Patient has been noncompliant with his CPAP in the past resulting in a right cerebellar CVA on 01/23/19. Multiple benign right upper lobe pulmonary nodules by CT scans as below, including 2 cm right upper lobe pulmonary nodule, including 2 cm right upper lobe pulmonary nodule on 01/23 with follow-up recommended in 3 months. Gastrointestinal History: Reports: Colon Polyp, Diverticulosis, Fatty Liver, Hemorrhoids, Other (See Below). Denies: Celiac Disease, Fecal Incontinence, Gastritis, GERD, GI Bleed, Hepatitis, Hiatal Hernia, Inflammatory Bowel Disease , Irritable Bowel Syndrome, Jaundice, Pancreatitis, PUD Other Gastrointestinal History: LFTs elevation likely secondary to his fatty liver with hepatosplenomegaly by CT scan. Benign hyperplastic colonic polyp at 25 cm removed by colonoscopy in 2007 as below. Genitourinary History: Reports: BPH, Chronic Renal Insuffiency, Diabetic Nephropathy, Hydronephrosis, Renal Calculus, Other (See Below). Denies: Acute Renal Failure, Pyelonephritis, STD, UTI, Recurrent Other Genitourinary History: History of recurrent urolithiasis with initial right-sided urolithiasis in 2003 and subsequent episodes in February 2018 with last episode on 01/08/18 with secondary right-sided hydronephrosis from a 1 cm distal stone requiring procedure as below. Benign left renal cyst. Musculoskeletal History: Reports: Arthritis, Back Pain, Chronic, Fracture, Gout , Neck Pain, Chronic, Osteoarthritis, Other (See Below). Denies: Amputation, RA , SLE Other Musculoskeletal History: Digit #5 fracture of the left hand as a teenager. Midshaft right radial and ulnar fracture at age 43. Neurological History: Reports: Concussion, CVA, Head Trauma, Neuropathy, Diabetic, Neuropathy, Peripheral, TIA, Other (See Below). Denies: Alzheimers Disease, Cerebral Aneurysms, Headaches, Chronic, Migraines, MS, Parkinson's, Seizure, Vertigo Other Neuro History: Acute right ischemic cerebellar CVA secondary to noncompliance with his CPAP on 01/23/19 with secondary remaining dysarthria and dystaxia and initial respiratory failure and metabolic encephalopathy. Restless leg syndrome. Head Concussions 2 at age 35 and 43. Questionable TIA in December 2017 with negative MRI. Psychiatric History: Reports: Anxiety, Depression. Denies: Abuse, Victim of, ADD, ADHD, Addiction, Alzheimers Disease, Dementia, Psych Hospitalization(s), Psychosis, PTSD, Schizophrenia, Suicide Attempt, Suicidal Ideation Endocrine/Metabolic History: Reports: Diabetes, Type II, IDDM, Obesity/BMI 30+, Other (See Below). Denies: Diabetes Mellitus, Type 3c, Hypothyroidism Other Endocrine/Metabolic History: History of AODM with previous occasional insulin use and metformin use, however current dietary therapy. Hypomagnesemia. Hypoalbuminemia. Hematologic History: Reports: None. Denies: Anemia, Blood Transfusion(s), Iron Deficiency Immunologic History: Reports: None. Denies: AIDS, HIV, SLE Oncologic (Cancer) History: Reports: None. Denies: Basal Cell Carcinoma, Colon , Leukemia, Lung, Lymphoma, Malignant Melanoma, Non-Hodgkin's Lymphoma, Prostate , Squamous Cell Carcinoma Dermatologic History: Reports: Venous Stasis Dermatitis. Denies: Eczema, Psoriasis - Infectious Disease History Infectious Disease History: Reports: Chicken Pox, Measles, Shingles. Denies: C- Difficile, Meningitis, Mononucleosis, MRSA, Mumps, Pertussis (Whooping Cough), Rheumatic Fever, Rubella, Scarlet Fever, TB, VRE - Past Surgical History Head Surgeries/Procedures: Reports: None HEENT Surgical History: Reports: LASIK, Oral Surgery. Denies: Adenoidectomy, Cataract Surgery, Eye Surgery, Myringotomy w Tube(s), Naso-Sinus Surgery, Tonsillectomy Other HEENT Surgeries/Procedures: [place] teeth extraction 4 at age 19. LASIK bilaterally in 1996. Cardiovascular Surgical History: Reports: Vascular Surgery, Other (See Below). Denies: Aneurysm, Coronary Artery Bypass, Coronary Artery Stent, Percutaneous Transluminal Angioplasty, Varicose Other Cardiovascular Surgeries/Procedures: Electrocardioversion for atrial flutter on 09/03/18. Left leg stent placement in 2013. Respiratory Surgical History: Reports: None. Denies: Thoracentesis GI Surgical History: Reports: Appendectomy, Colonoscopy, Hernia, Inguinal, Hernia Repair/Other, Polypectomy, Other (See Below). Denies: Cholecystectomy, EGD, Hernia, Abdominal Other GI Surgeries/Procedures: Appendectomy at age 11. Colonoscopy with concomitant umbilical hernia repair on 02/22/08 with previous bilateral inguinal hernia repairs. Male Surgical History: Reports: Kidney Stone Extraction, Renal Calculus, Other (See Below). Denies: Circumcision, Vasectomy Other Male Surgeries/Procedures: Right ureteral stent placement, cystoscopy, and stone extraction on 01/11/18. Endocrine Surgical History: Reports: None. Denies: Thyroidectomy Neurological Surgical History: Reports: Discectomy, Laminectomy, Lumbar Spine, Other (See Below). Denies: C-Spine, Intracranial, Sacral Spine, Spinal Fusion, Thoracic Spine Other Neurological Surgeries/Procedures: Laser laminectomy and discectomy in the lumbar region in 2011. Musculoskeletal Surgical History: Reports: None. Denies: Arthroscopic Procedure , Carpal Tunnel, Ganglion Cyst, Joint Replacement, ORIF, Shoulder Surgery Oncologic Surgical History: Reports: None Dermatological Surgical History: Reports: None - Past Imaging History Past Imaging History: Reports: Angiography (Positive Heart catheterization on .), Cardiac Echo (Last echocardiogram on 01/24/19 with ejection fraction of 5560 percent and findings as above. Previous echocardiogram on 11/21/18 with ejection fraction of 5560 percent. Trans-esophageal echocardiogram performed on 09/03/18 at time of cardioversion. Previous echocardiograms on 12/15/17 and .), CAT Scan (Negative CTA of the chest for PE on 09/22/18, 11/15/18, , 12/14/14 and 06/22/16. Negative CTA of the neck and head on 01/23/19. CT of the abdomen and pelvis on with positive findings as above. CT of the chest on 02/12/18.), MRI (Positive MRI of the brain on 01/23/19 for right cerebellar infarct. Previous MRI of the brain on 12/15/17 was negative. Lumbar spine on 07/11/11.), Sleep Study (Last sleep study including CPAP titration on 11/07.), Ultrasound (Renal ultrasound on 02/22/18, 01/09/18, 10/21/17 and 02/04/04.) , Venous Doppler (Bilateral 10/17/15 with left-sided study on 06/23/16.), Other ( See Below) (IVP on 02/04/04.) Social & Family History - Family History HEENT: Reports: Cataract, Other (See Below). Denies: Glaucoma, Macular Degeneration Other HEENT Family History: Multiple paternal aunts and uncles with cataracts. Cardiac: Reports: Heart Murmur, Hypertension, Other (See Below). Denies: Afib, AICD, Aneurysm, Arrhythmia, Blood Clots/VTE/DVT, CAD, Cardiomyopathy, Heart Failure, VT, PVD/COD, Syncope Other Cardiac Family History: Paternal uncle with valvular disease secondary to rheumatic fever. Hypertension in parents. Respiratory: Reports: Sleep Apnea, Other (See Below). Denies: Asthma, COPD, PE , Pneumothorax Other Respiratory Family Hisory: Mother with sleep apnea. GI: Reports: Cholelithiasis, Other (See Below). Denies: Celiac Disease, Colon Polyps, GERD, GI bleed, Inflammatory Bowel Disease, Irritable Bowel Syndrome, PUD Other GI Family History: Father with cholelithiasis. : Reports: Renal Calculus, Other (See Below). Denies: Renal Disease/ Insufficiency Other Family History: Multiple paternal uncles with urolithiasis. OBGYN: Reports: None Musculoskeletal: Reports: Arthritis, Gout, Osteoarthritis, Other (See Below). Denies: RA, SLE Other Musculoskeletal Family History: Father with gout and osteoarthritis. Neurological: Reports: CVA, Other (See Below). Denies: Alzheimers Disease, Dementia, Migraines, MS, Parkinson's, Seizure, TIA Other Neurological Family History: Maternal grandfather with CVA in his 70s. Psychiatric: Reports: None. Denies: Abuse, Victim of, ADD, ADHD, Anxiety, Depression, Psych Hospitalization(s), PTSD, Suicide Attempt Endocrine/Metabolic: Reports: Diabetes, type II, IDDM, Other (See Below). Denies: Diabetes, Type I, Diabetes Mellitus, Type 3c, Hypothyroidism Other Endocrine/Metabolic Family History: Mother and paternal uncle with IDDM. Hematologic: Reports: Other (See Below) Other Hematologic Family History: Maternal uncle with unknown type of rare blood disease. Immunologic: Reports: None. Denies: AIDS, HIV, SLE Dermatologic: Reports: None. Denies: Eczema, Psoriasis Oncologic: Reports: Breast, Prostate, Other (See Below). Denies: Brain, Cervix , Colon, Hodgkin's Lymphoma, Leukemia, Lung, Lymphoma, Ovarian, Skin, Uterine Other Oncologic Family History: Mother with breast cancer at age 72. Paternal uncle with prostate cancer in his 80s. - Tobacco Use Smoking Status *Q: Never Smoker Tobacco Use Within Last Twelve Months: No Used Tobacco, but Quit: No Smoking Cessation Information Provided To Patient: No Second Hand Smoke Exposure: No Second Hand Smoke Education Provided: No - Caffeine Use Caffeine Use: Reports: Coffee (5 cups per month.), Soda (5 sodas per week). Denies: Energy Drinks, Tea - Alcohol Use Alcohol Use History: Yes Days Per Week of Alcohol Use: 3 Number of Drinks Per Day: 2 Number of Drinks Per Day Comment: Occasional beer, wine, and mixed drinks. No previous DWIs, problems with alcohol abuse, etc. Total Drinks Per Week: 6 Date of Last Drink: 01/29/19 Alcohol Use in Last Twelve Months: Yes - Recreational Drug Use Recreational Drug Use: No Drug Use in Last 12 Months: No Recreational Drug Type: Denies: Amphetamines (Speed), Cocaine, Heroin, Inhalants (Glues, Solvents, Aerosols), LSD (Acid), Marijuana/Hashish, Methamphetamine, Morphine, Oxycodone - Living Situation & Occupation Living situation: Reports: (1981. 2 children), with Family () Occupation: Employed ([employer]) ED ROS GENERAL - Review of Systems Review Of Systems: Comprehensive ROS is negative, except as noted in HPI. ED EXAM, GENERAL - Physical Exam Exam: See Below Exam Limited By: No Limitations General Appearance: Alert, WD/WN, No Apparent Distress, Anxious (Moderate) Eye Exam: Bilateral Eye: EOMI, Normal Inspection (No nystagmus), PERRL Ears: Normal External Exam, Normal Canal, Hearing Grossly Normal, Normal TMs Nose: Normal Inspection, Normal Mucosa, No Blood Throat/Mouth: Normal Inspection, Normal Lips, Normal Teeth, Normal Gums, Normal Oropharynx, Normal Voice, No Airway Compromise. No: Dysphagia, Perioral Cyanosis Head: Atraumatic, Normocephalic. No: Facial Swelling, Facial Tenderness, Sinus Tenderness Neck: Normal Inspection, Supple, Non-Tender, Full Range of Motion. No: Carotid Bruit, Lymphadenopathy (L), Lymphadenopathy (R), Thyromegaly Respiratory/Chest: No Respiratory Distress, No Accessory Muscle Use, Chest Non- Tender, Rales (Mild bilateral basilar rales). No: Pleural Rub, Accessory Muscle Use, Retractions Cardiovascular: Normal Peripheral Pulses, No Edema, No Gallop, No JVD, No Murmur , No Rub, Tachycardia, Irregularly Irregular. No: Gallop/S3, Gallop/S4, Friction Rub Peripheral Pulses: 2+: Radial (L), Radial (R), Dorsalis Pedis (L), Dorsalis Pedis (R) GI/Abdominal: Normal Bowel Sounds, Soft, Non-Tender, No Organomegaly, No Distention, No Abnormal Bruit, No Mass, Pelvis Stable, Other (obese). No: Guarding (Male) Exam: Deferred Rectal (Males) Exam: Deferred Back Exam: Normal Inspection, Full Range of Motion. No: CVA Tenderness (L), CVA Tenderness (R), Muscle Spasm Extremities: Normal Range of Motion, Non-Tender, No Pedal Edema, Normal Capillary Refill, Other (Moderate venous stasis dermatitis of the lower extremities). No: Tim's Sign Neurological: Alert, Oriented, CN II-XII Intact, Normal Cognition, Normal Reflexes (Negative Babinski's, finger to nose, and pronator rotation tests. No evidence of facial paresis, tongue deviation, orthostasis, etc.. Excellent reverse thought processes.), No Motor/Sensory Deficits, Abnormal Gait (Stable dystaxia by history), Other (Mild dysarthriastable by history) Psychiatric: Anxious (Moderate), Depressed Mood (Moderate with adequate eye contact) Skin Exam: Rash (Venous dermatitis as above), Wound/Incision (1 cm diameter grade 12 pressure ulcer without signs of infection over the medial periosteal region of digit #1 of the right foot). No: Diaphoretic, Ecchymosis Lymphatic: No Adenopathy EKG INTERPRETATION EKG Date: 01/31/19 Time: 15:35 Rhythm: A-Fib (With occasional PVCs) Rate (Beats/Min): 94 [place]: Normal (Left) P-Wave: Variable QRS: Normal (0.08 seconds) ST-T: Other (Nonspecific ST changes in leads 1 and aVL) QT: Normal Comparison: Change From Previous EKG (Occasional PVC new from EKG earlier today at 14:35 hours) EKG Interpretation Comments: 1. No acute ischemic changes 2. Atrial fibrillation/flutter 3. PVCs Course - Vital Signs Last Recorded V/S: Last Vital Signs Temp 36.7 C 01/31/19 15:10 Pulse 93 01/31/19 17:03 Resp 22 H 01/31/19 17:03 BP 112/73 01/31/19 17:03 Pulse Ox 99 01/31/19 17:03 Vital Signs - 24 hr 01/31/19 01/31/19 01/31/19 15:10 15:18 15:32 Temperature [ 36.7 C Temporal] Pulse, 115 H 123 H 97 Peripheral [ Left Pulse Oximetry] Respiratory 22 H 16 17 Rate Blood Pressure 151/81 H 128/80 [Left Upper Arm ] Blood Pressure 143/84 H [Right Upper Arm] O2 Sat by Pulse 95 97 98 Oximetry 01/31/19 01/31/19 01/31/19 16:00 16:05 16:20 Temperature [ Temporal] Pulse, 103 H 103 H 86 Peripheral [ Left Pulse Oximetry] Respiratory 17 18 17 Rate Blood Pressure 115/86 116/83 113/86 [Left Upper Arm ] Blood Pressure [Right Upper Arm] O2 Sat by Pulse 98 96 98 Oximetry 01/31/19 16:34 Temperature [ Temporal] Pulse, 93 Peripheral [ Left Pulse Oximetry] Respiratory 16 Rate Blood Pressure 117/77 [Left Upper Arm ] Blood Pressure [Right Upper Arm] O2 Sat by Pulse 98 Oximetry - Orders/Labs/Meds Orders: Active Orders 24 hr Category Date Time Status Cardiac Monitoring [RC] . DIRECTED Care 01/31/19 15:23 Active EKG Documentation Completion [RC] ASDIRECTED Care 01/31/19 15:23 Active Oxygen Therapy, ED [RC] PRN Care 01/31/19 15:23 Active Peripheral IV Care [RC] . DIRECTED Care 01/31/19 15:23 Active Pulse Oximetry [RC] CONTINUOUS Care 01/31/19 15:23 Active Up With Assistance [RC] PFP Care 01/31/19 15:23 Active Vital Signs [RC] PFP Care 01/31/19 15:23 Active Nothing per Oral Now Diet [DIET] Diet 01/31/19 Breakfast Active Chest 1V Frontal [CR] Stat Exams 01/31/19 15:23 Taken Sodium Chloride 0.9% [Saline Flush] Med 01/31/19 15:23 Active 10 ml FLUSH ASDIRECTED PRN Obtain Past Medical Record [OM.PC] Urgent Oth 01/31/19 15:23 Active Peripheral IV Insertion Adult [OM.PC] Stat Oth 01/31/19 15:23 Ordered Resuscitation Status Stat Resus Stat 01/31/19 15:23 Ordered Medication Orders Sodium Chloride (Saline Flush) 10 ml FLUSH ASDIRECTED PRN PRN Reason: Keep Vein Open Last Admin: 01/31/19 15:30 Dose: 10 ml Labs: Laboratory Tests 01/31/19 01/31/19 01/31/19 Range/Units 15:25 15:25 15:25 WBC 8.6 (4.0-10.2) K/uL RBC 5.64 H (4.33-5.41) M/uL Hgb 15.8 D (13.1-16.8) g/dL Hct 47.1 (39.0-49.0) % MCV 83.5 L (84.0-98.0) fL MCH 28.0 L (28.2-33.3) pg MCHC 33.5 (31.7-36.0) g/dL RDW 14.7 H (11.2-14.1) % Plt Count 258 (150-350) K/uL Neut % (Auto) 80.8 H (45.0-80.0) % Lymph % (Auto) 11.2 (10.0-50.0) % [place] % (Auto) 7.7 (2.0-14.0) % Eos % (Auto) 0.1 (0.0-5.0) % Baso % (Auto) 0.2 (0.0-2.0) % Neut # (Auto) 6.94 (1.40-7.00) K/uL Lymph # (Auto) 0.96 (0.50-3.50) K/uL [place] # (Auto) 0.66 (0.00-1.00) K/uL Eos # (Auto) 0.01 (0.00-0.50) K/uL Baso # (Auto) 0.02 (0.00-0.20) K/uL PT 16.2 H D (9.5-12.0) SEC INR 1.5 APTT 29.6 (21.0-31.3) SEC Sodium 141 (136-145) mmol/L Potassium 3.8 (3.5-5.1) mmol/L Chloride 105 (98-107) mmol/L Carbon Dioxide 23.9 (21.0-32.0) mmol/L BUN 25 H (7-18) mg/dL Creatinine 1.15 (0.51-1.17) mg/dL Est Cr Clr Drug Dosing TNP Estimated GFR (MDRD) > 60 mL/min Glucose 258 H (74-106) mg/dL Lactic Acid (0.4-2.0) mmol/L Uric Acid 9.2 H (2.6-7.2) mg/dL Calcium 9.1 (8.5-10.1) mg/dL Magnesium 1.6 L (1.8-2.4) mg/dL Total Bilirubin 0.6 (0.2-1.0) mg/dL AST 20 (15-37) U/L ALT 78 (12-78) U/L Alkaline Phosphatase 119 H (46-116) IU/L Creatine Kinase 36 (26-308) U/L Creatine Kinase Index 4.2 H (0.0-2.5) % CK-MB (CK-2) 1.50 (0.00-3.60) ng/mL Troponin I 0.031 (0.000-0.056) ng/mL NT-Pro-B Natriuret Pep 979 H (0-125) pg/mL Total Protein 7.4 (6.4-8.2) g/dL Albumin 3.3 L (3.4-5.0) g/dL TSH, Ultra Sensitive 1.214 (0.358-3.740) mIU/mL Digoxin 0.52 L (0.90-2.00) ng/mL Ethyl Alcohol 0.000 (0.000-0.080) g/dL 01/31/ Range/Units 15:25 WBC (4.0-10.2) K/uL RBC (4.33-5.41) M/uL Hgb (13.1-16.8) g/dL Hct (39.0-49.0) % MCV (84.0-98.0) fL MCH (28.2-33.3) pg MCHC (31.7-36.0) g/dL RDW (11.2-14.1) % Plt Count (150-350) K/uL Neut % (Auto) (45.0-80.0) % Lymph % (Auto) (10.0-50.0) % [place] % (Auto) (2.0-14.0) % Eos % (Auto) (0.0-5.0) % Baso % (Auto) (0.0-2.0) % Neut # (Auto) (1.40-7.00) K/uL Lymph # (Auto) (0.50-3.50) K/uL [place] # (Auto) (0.00-1.00) K/uL Eos # (Auto) (0.00-0.50) K/uL Baso # (Auto) (0.00-0.20) K/uL PT (9.5-12.0) SEC INR APTT (21.0-31.3) SEC Sodium (136-145) mmol/L Potassium (3.5-5.1) mmol/L Chloride (98-107) mmol/L Carbon Dioxide (21.0-32.0) mmol/L BUN (7-18) mg/dL Creatinine (0.51-1.17) mg/dL Est Cr Clr Drug Dosing Estimated GFR (MDRD) mL/min Glucose (74-106) mg/dL Lactic Acid 1.9 (0.4-2.0) mmol/L Uric Acid (2.6-7.2) mg/dL Calcium (8.5-10.1) mg/dL Magnesium (1.8-2.4) mg/dL Total Bilirubin (0.2-1.0) mg/dL AST (15-37) U/L ALT (12-78) U/L Alkaline Phosphatase (46-116) IU/L Creatine Kinase (26-308) U/L Creatine Kinase Index (0.0-2.5) % CK-MB (CK-2) (0.00-3.60) ng/mL Troponin I (0.000-0.056) ng/mL NT-Pro-B Natriuret Pep (0-125) pg/mL Total Protein (6.4-8.2) g/dL Albumin (3.4-5.0) g/dL TSH, Ultra Sensitive (0.358-3.740) mIU/mL Digoxin (0.90-2.00) ng/mL Ethyl Alcohol (0.000-0.080) g/dL Meds: Medications Generic Name Dose Route Start Last Admin Trade Name Freq PRN Reason Stop Dose Admin Sodium Chloride 10 ml 01/31/19 15:23 01/31/19 15:30 Saline Flush FLUSH 10 ml ASDIRECTED PRN Administration Keep Vein Open Discontinued Medications Generic Name Dose Route Start Last Admin Trade Name Freq PRN Reason Stop Dose Admin Diltiazem HCl 20 mg 01/31/19 15:24 01/31/19 15:28 Diltiazem IVPUSH 01/31/19 15:25 10 mg ONETIME ONE Administration Famotidine 40 mg 01/31/19 15:23 01/31/19 15:34 Pepcid IVPUSH 01/31/19 15:24 40 mg ONETIME ONE Administration - Radiology Interpretation Free Text/Narrative:: monitor technician initially showed atrial fibrillation/flutter with rapid ventricular response in the 120s to 150s with very occasional multiform PVCs. Persistent atrial fibrillation on admission with average heart rates in the 80s to 90s with occasional breakthrough borderline tachycardia in the low 100s. Chest x-ray, portable, shows borderline cardiomegaly and prominence of the proximal aortic arch with borderline pulmonary obstructive disease, pulmonary hypertension, and/or mild centralized CHF. Note official x-ray report showed no significant abnormalities or changes since 12/04/18. Departure - Departure Time of Disposition: 17:10 Disposition: Admitted As Inpatient 64 Condition: Good Clinical Impression: Dyslipidemia, Renal insufficiency, Hypomagnesemia, Hypoalbuminemia CHF (congestive heart failure) Qualifiers: Heart failure type: combined systolic and diastolic Heart failure chronicity: acute on chronic Qualified Code(s): I50.43 - Acute on chronic combined systolic (congestive) and diastolic (congestive) heart failure COPD (chronic obstructive pulmonary disease) Qualifiers: COPD type: emphysema Emphysema type: panlobular Qualified Code(s): J43.1 - Panlobular emphysema Hypertension Qualifiers: Hypertension type: essential hypertension Qualified Code(s): I10 - Essential ( primary) hypertension CVA (cerebral vascular accident) Qualifiers: CVA mechanism: occlusion Precerebral and cerebral artery: cerebellar artery Laterality of affected vessel: right Qualified Code(s): I63.541 - Cerebral infarction due to unspecified occlusion or stenosis of right cerebellar artery Atrial flutter Qualifiers: Atrial flutter type: typical Qualified Code(s): I48.3 - Typical atrial flutter Diabetes mellitus Qualifiers: Diabetes mellitus type: type 2 Diabetes mellitus termite control representative insulin use: without termite control representative use Diabetes mellitus complication status: with kidney complications Diabetes mellitus complication detail: with chronic kidney disease Chronic kidney disease stage: stage 2 (mild) Qualified Code(s): E11.22 - Type 2 diabetes mellitus with diabetic chronic kidney disease Apnea, sleep Qualifiers: Sleep apnea type: obstructive Qualified Code(s): G47.33 - Obstructive sleep apnea (adult) (pediatric) Coronary artery disease Qualifiers: Coronary Disease-Associated Artery/Lesion type: [place] artery [place] vs. transplanted heart: [place] heart Associated angina: without angina Qualified Code(s): I25.10 - Atherosclerotic heart disease of [place] coronary artery without angina pectoris Osteoarthritis Qualifiers: Osteoarthritis location: multiple joints Osteoarthritis type: primary Qualified Code(s): M15.0 - Primary generalized (osteo)arthritis - Problem List & Annotations (1) Atrial flutter SNOMED Code(s): 1672062 Code(s): I48.92 - UNSPECIFIED ATRIAL FLUTTER Status: Acute Priority: High Current Visit: Yes Onset Date: ~01/30/19 Annotation/Comment:: Note previous clinic evaluation on 01/30/19 with increased tachycardia prior to arrival. No chest pain or anginal type symptoms. Chest pain protocol was initiated at time of arrival, however, with no ASA or Brilinta given secondary to absence of anginal complaints, current Eliquis, and recently discontinued Coumadin therapy on 01/30. Note INR was previously elevated and is subtherapeutic at this time. Some problems with multiple recent changes in his medical therapy as above with exact medical regimen unknown and possibility of noncompliance with his medications. Note apparent moderate bradycardia with previous subtle therapy with patient changed to digoxin prior to discharge from [place]. Mildly subtherapeutic level today, however observe for now with adjustment of the timing of his current medications once they are definitely known. Overall good response to IV diltiazem therapy in the emergency room as above. He will likely need multiple medication adjustments during this hospitalization secondary to current CHF, refractory atrial fibrillation/flutter , etc. with inpatient care and therefore required. Note current high-dose Lipitor therapy and concurrent diltiazem therapy with continued close observation of possible developing an/or returned bradycardia, etc.. Attempt to decrease his caffeine intake. Qualifiers: Atrial flutter type: typical Qualified Code(s): I48.3 - Typical atrial flutter (2) Coronary artery disease SNOMED Code(s): 71813480 Code(s): I25.10 - ATHSCL HEART DISEASE OF [place] CORONARY ARTERY W/O ANG PCTRS Status: Chronic Priority: Medium Current Visit: Yes Annotation/ Comment:: As above. EKG shows no sign of significant acute ischemic changes with standard rule out VT orders to be initiated. Note mild elevated BNP and secondary change in troponin I, which is still normal. No Chest pain or anginal type symptoms. Known history of nonoperable coronary artery disease as above Qualifiers: Coronary Disease-Associated Artery/Lesion type: [place] artery [place] vs. transplanted heart: [place] heart Associated angina: without angina Qualified Code(s): I25.10 - Atherosclerotic heart disease of [place] coronary artery without angina pectoris (3) CVA (cerebral vascular accident) SNOMED Code(s): 575815814 Code(s): I63.9 - CEREBRAL INFARCTION, UNSPECIFIED Status: Acute Priority : Medium Current Visit: Yes Onset Date: 01/23/19 Annotation/Comment:: Note right cerebellar ischemic CVA on 01/23/19 in [place] with stable neurological exam today. Continue PT and OT on an outpatient basis. Qualifiers: CVA mechanism: occlusion Precerebral and cerebral artery: cerebellar artery Laterality of affected vessel: right Qualified Code(s): I63.541 - Cerebral infarction due to unspecified occlusion or stenosis of right cerebellar artery (4) Dyslipidemia SNOMED Code(s): 586329488 Code(s): E78.5 - HYPERLIPIDEMIA, UNSPECIFIED Status: Acute Priority: High Current Visit: Yes Onset Date: 12/13/17 Annotation/Comment:: Lipid panel in the a.m. Patient was recently discharged on high-dose Lipitor 80 mg daily. Weight loss in moderation strongly advisable. (5) Hypertension SNOMED Code(s): 78194324 Code(s): I10 - ESSENTIAL (PRIMARY) HYPERTENSION Status: Acute Priority: High Current Visit: Yes Annotation/Comment:: Blood pressures stable in the emergency room despite IV of diltiazem as above. Continue to observe closely. Qualifiers: Hypertension type: essential hypertension Qualified Code(s): I10 - Essential (primary) hypertension (6) Hypomagnesemia SNOMED Code(s): 190369661 Code(s): E83.42 - HYPOMAGNESEMIA Status: Chronic Priority: Medium Current Visit: Yes Onset Date: 11/30/18 Annotation/Comment:: Renitiate magnesium oxide therapy especially in light of patient's occasional constipation and refractory arrhythmia as above. Continue close follow-up by his regular providers at discharge. (7) Apnea, sleep SNOMED Code(s): 80788515 Code(s): G47.30 - SLEEP APNEA, UNSPECIFIED Status: Chronic Priority: Medium Current Visit: Yes Annotation/Comment:: Patient just restarted his CPAP again with strict compliance with this therapy strongly encouraged especially in light of recent secondary CVA as above. Note recent sleep study on 11/07/18 for CPAP titration. Note significant restless leg syndrome with consideration of restarting Mirapex. Qualifiers: Sleep apnea type: obstructive Qualified Code(s): G47.33 - Obstructive sleep apnea (adult) (pediatric) (8) Diabetes mellitus SNOMED Code(s): 65091550 Code(s): E11.9 - TYPE 2 DIABETES MELLITUS WITHOUT COMPLICATIONS Status: Chronic Priority: Medium Current Visit: Yes Annotation/Comment:: Patient does not take Accu-Cheks at home. Glycosylated hemoglobin in the a.m. Note history of diabetic nephropathy and neuropathy. Continued dietary changes encouraged. Note current tapering prednisone therapy secondary to his diabetic neuropathy? Qualifiers: Diabetes mellitus type: type 2 Diabetes mellitus termite control representative insulin use: without termite control representative use Diabetes mellitus complication status: with kidney complications Diabetes mellitus complication detail: with chronic kidney disease Chronic kidney disease stage: stage 2 (mild) Qualified Code(s): E11.22 - Type 2 diabetes mellitus with diabetic chronic kidney disease; N18.2 - Chronic kidney disease, stage 2 (mild) (9) Osteoarthritis SNOMED Code(s): 926351649 Code(s): M19.90 - UNSPECIFIED OSTEOARTHRITIS, UNSPECIFIED SITE Status: Chronic Priority: Medium Current Visit: Yes Annotation/Comment:: Uric acid stable from previous evaluations despite mild persistent elevation today. IV Lasix therapy with caution with no current gout-type symptoms. His arthritis is otherwise stable by patient history. Qualifiers: Osteoarthritis location: multiple joints Osteoarthritis type: primary Qualified Code(s): M15.0 - Primary generalized (osteo)arthritis (10) Renal insufficiency SNOMED Code(s): 694680935, 830873836 Code(s): N28.9 - DISORDER OF KIDNEY AND URETER, UNSPECIFIED Status: Chronic Priority: Medium Current Visit: Yes Annotation/Comment:: The patient was previously on lisinopril, however this has been since discontinued. This therapy will not be reinitiated at this time secondary to patient's somewhat low blood pressure in the emergency room. Note diabetic nephropathy and history of CHF. (11) Hypoalbuminemia SNOMED Code(s): 158897661 Code(s): E88.09 - [facility] DISORDERS OF PLASMA-PROTEIN METABOLISM, NEC Status: Chronic Priority: Medium Current Visit: Yes Annotation/Comment:: Observe for now. Consider high-protein Glucerna supplements, however weight loss advisable at this time. - Problem List Review Problem List Initiated/Reviewed/Updated: Yes - My Orders Last 24 Hours: My Active Orders 01/31/19 15:23 Cardiac Monitoring [RC] . DIRECTED EKG Documentation Completion [RC] ASDIRECTED Oxygen Therapy, ED [RC] PRN Peripheral IV Care [RC] . DIRECTED Pulse Oximetry [RC] CONTINUOUS Up With Assistance [RC] PFP Vital Signs [RC] PFP Chest 1V Frontal [CR] Stat Sodium Chloride 0.9% [Saline Flush] 10 ml FLUSH ASDIRECTED PRN Obtain Past Medical Record [OM.PC] Urgent Peripheral IV Insertion Adult [OM.PC] Stat Resuscitation Status Stat 01/31/19 Breakfast Nothing per Oral Now Diet [DIET] - Assessment/Plan Admission H&P: Please use this note as an admission H&P Last 24 Hours: My Active Orders 01/31/19 15:23 Cardiac Monitoring [RC] . DIRECTED EKG Documentation Completion [RC] ASDIRECTED Oxygen Therapy, ED [RC] PRN Peripheral IV Care [RC] . DIRECTED Pulse Oximetry [RC] CONTINUOUS Up With Assistance [RC] PFP Vital Signs [RC] PFP Chest 1V Frontal [CR] Stat Sodium Chloride 0.9% [Saline Flush] 10 ml FLUSH ASDIRECTED PRN Obtain Past Medical Record [OM.PC] Urgent Peripheral IV Insertion Adult [OM.PC] Stat Resuscitation Status Stat 01/31/19 Breakfast Nothing per Oral Now Diet [DIET] Assessment:: As above Plan: As above. Extensive precautions were given to the patient, who is in agreement with the treatment plan. The patient will require about 3-4 days of inpatient/ acute care secondary to multiple health problems as above.
[2019-01-31] MEDS ORDERED: Diltiazem 25 MG/5 ML SDV IVPUSH ONE (15:24)
[2019-01-31] MEDS: Sodium Chloride 0.9% 10 ML Syringe FLUSH PRN ×2 (15:30→18:26)
[2019-01-31 15:52] LABS: CHLORIDE,CL 105 mmol/L (98-107); SODIUM,NA 141 mmol/L (136-145)
[2019-01-31] MEDS ORDERED: Temazepam 15 MG Cap PO PRN (17:29)
[2019-01-31] MEDS ORDERED: Sodium Chloride 0.9% 10 ML Syringe FLUSH PRN (17:29)
[2019-01-31] MEDS ORDERED: Metoprolol Succinate 25 MG Tab.ER PO SCH (18:00)
[2019-01-31] MEDS: Colchicine 0.6 MG Tab PO PRN (18:22)
[2019-01-31] MEDS: Potassium Chloride 20 MEQ Tab.ER PO SCH (18:22)
[2019-01-31] MEDS: Magnesium Oxide 400 MG Tab PO SCH (18:23)
[2019-01-31] MEDS: Pregabalin 75 MG Cap PO SCH (18:24)
[2019-01-31] MEDS: Furosemide 40 MG/4 ML VIAL IVPUSH SCH (18:26)
[2019-01-31] MEDS: Apixaban 5 MG Tab PO SCH (20:05)
[2019-01-31] MEDS: atorvaSTATin 40 MG Tab PO SCH (20:05)
[2019-02-01] MEDS: Sodium Chloride 0.9% 10 ML Syringe FLUSH PRN (05:49)
[2019-02-01] MEDS: Furosemide 40 MG/4 ML VIAL IVPUSH SCH ×2 (05:49→17:30)
[2019-02-01 07:20] LABS: HEMOGLOBIN A1C 6.9 % (4.3-5.7)
[2019-02-01 07:44] LABS: CHLORIDE,CL 103 mmol/L (98-107); SODIUM,NA 144 mmol/L (136-145)
[2019-02-01] MEDS ORDERED: predniSONE 5 MG Tab PO SCH (08:00)
[2019-02-01] MEDS ORDERED: Diltiazem 180 MG Cap.CD PO SCH (08:00)
[2019-02-01] MEDS: Acetaminophen 325 MG Tab PO PRN ×2 (08:14→13:15)
[2019-02-01] MEDS: Potassium Chloride 20 MEQ Tab.ER PO SCH ×2 (09:03→17:29)
[2019-02-01] MEDS: Pregabalin 75 MG Cap PO SCH ×2 (09:03→17:28)
[2019-02-01] MEDS: Apixaban 5 MG Tab PO SCH ×2 (09:03→20:28)
[2019-02-01] MEDS: predniSONE 5 MG Tab PO SCH (09:03)
[2019-02-01] MEDS: Metoprolol Succinate 25 MG Tab.ER PO SCH ×2 (09:20→17:28)
[2019-02-01] MEDS: Digoxin 125 MCG Tab PO SCH (09:20)
[2019-02-01] MEDS: Diltiazem 120 MG Cap.CD PO SCH (09:21)
--- NOTE | 2019-02-01 11:11 | PCM.PN ---
- General Info Date of Service: 02/01/19 Admission Dx/Problem (Free Text): 1. Atrial fibrillation with rapid ventricular response 2. CHF 3. Coronary artery disease 4. Diabetes mellitus Functional Status: Reports: Pain Controlled, Tolerating Diet, Ambulating, Urinating. Denies: New Symptoms, Incentive Spirometry Pain Score: 8 (Foot Pain when ambulating) - Review of Systems General: Reports: No Symptoms. Denies: Fever, Weakness, Fatigue, Malaise, Chills, Night Sweats, Appetite (Good) HEENT: Reports: No Symptoms. Denies: Dysphasia, Ear Pain, Eye Pain, Glasses, Headaches, Sinus Congestion, Sore Throat, Rhinitis, Visual Changes Pulmonary: Reports: No Symptoms. Denies: Shortness of Breath, Pleuritic Chest Pain, Cough, Sputum, Hemoptysis, Wheezing Cardiovascular: Denies: Chest Pain, Palpitations (Resolved this morning), Dyspnea on Exertion, Orthopnea, PND, Edema, Lightheadedness Gastrointestinal: Reports: No Symptoms. Denies: Abdominal Pain, Constipation, Decreased Appetite, Diarrhea, Difficulty Swallowing, Flatus, Hematochezia, Melena, Nausea, Vomiting Genitourinary: Reports: No Symptoms. Denies: Dysuria, Frequency, Burning, Pain , Urgency, Incontinence, Hematuria, Retention, Flank Pain Musculoskeletal: Reports: Foot Pain. Denies: Neck Pain, Shoulder Pain, Arm Pain , Hand Pain, Back Pain, Leg Pain, Joint Pain, Joint Swelling Skin: Reports: No Symptoms. Denies: Diaphoresis, Bruising Neurological: Reports: Numbness (As below), Paresthesia (Stable chronic infiltrate), Tingling (As above), Difficulty Walking (Secondary to foot pain), Change in Speech (Stable mild dysarthria), Gait Disturbance (Stable mild dystaxia). Denies: Confusion, Dizziness, Headache, Syncope, Weakness Psychiatric: Reports: Depression (Moderate with adequate eye contact), Anxiety ( Moderate). Denies: Confusion, Agitation, Cravings, Hallucinations - Patient Data Vitals - Most Recent: Last Vital Signs Temp 36.5 C 02/01/19 07:37 Pulse 68 02/01/19 09:21 Resp 20 02/01/19 07:37 BP 136/89 02/01/19 09:21 Pulse Ox 94 L 02/01/19 09:05 Vital Signs - 24 hr 01/31/19 01/31/19 01/31/19 15:10 15:18 15:32 Temperature [ Oral] Temperature [ 36.7 C Temporal] Pulse, Peripheral Pulse, 115 H 123 H 97 Peripheral [ Left Pulse Oximetry] Pulse, Peripheral [ Right Pulse Oximetry] Pulse, Peripheral [ Right Radial] Respiratory 22 H 16 17 Rate Blood Pressure Blood Pressure 151/81 H 128/80 [Left Upper Arm ] Blood Pressure 143/84 H [Right Upper Arm] O2 Sat by Pulse 95 97 98 Oximetry 01/31/19 01/31/19 01/31/19 16:00 16:05 16:20 Temperature [ Oral] Temperature [ Temporal] Pulse, Peripheral Pulse, 103 H 103 H 86 Peripheral [ Left Pulse Oximetry] Pulse, Peripheral [ Right Pulse Oximetry] Pulse, Peripheral [ Right Radial] Respiratory 17 18 17 Rate Blood Pressure Blood Pressure 115/86 116/83 113/86 [Left Upper Arm ] Blood Pressure [Right Upper Arm] O2 Sat by Pulse 98 96 98 Oximetry 01/31/19 01/31/19 01/31/19 16:34 16:58 17:03 Temperature [ Oral] Temperature [ Temporal] Pulse, Peripheral Pulse, 93 105 H 93 Peripheral [ Left Pulse Oximetry] Pulse, Peripheral [ Right Pulse Oximetry] Pulse, Peripheral [ Right Radial] Respiratory 16 21 H 22 H Rate Blood Pressure Blood Pressure 117/77 118/88 112/73 [Left Upper Arm ] Blood Pressure [Right Upper Arm] O2 Sat by Pulse 98 98 99 Oximetry 01/31/19 01/31/19 01/31/19 17:29 18:23 21:57 Temperature [ 36.6 C Oral] Temperature [ Temporal] Pulse, 120 H Peripheral Pulse, Peripheral [ Left Pulse Oximetry] Pulse, 76 Peripheral [ Right Pulse Oximetry] Pulse, Peripheral [ Right Radial] Respiratory 16 Rate Blood Pressure 112/73 Blood Pressure 149/94 H [Left Upper Arm ] Blood Pressure [Right Upper Arm] O2 Sat by Pulse 98 98 Oximetry 01/31/19 02/01/19 02/01/19 23:47 02:00 04:00 Temperature [ Oral] Temperature [ 36.9 C 36.8 C 36.9 C Temporal] Pulse, Peripheral Pulse, Peripheral [ Left Pulse Oximetry] Pulse, 86 84 Peripheral [ Right Pulse Oximetry] Pulse, Peripheral [ Right Radial] Respiratory 15 14 15 Rate Blood Pressure Blood Pressure 119/96 H 120/94 H 127/82 [Left Upper Arm ] Blood Pressure [Right Upper Arm] O2 Sat by Pulse 96 96 98 Oximetry 02/01/19 02/01/19 02/01/19 06:00 07:37 09:05 Temperature [ 36.5 C Oral] Temperature [ 36.8 C Temporal] Pulse, Peripheral Pulse, 67 Peripheral [ Left Pulse Oximetry] Pulse, 65 Peripheral [ Right Pulse Oximetry] Pulse, 68 Peripheral [ Right Radial] Respiratory 14 20 Rate Blood Pressure Blood Pressure 127/81 124/86 136/89 [Left Upper Arm ] Blood Pressure [Right Upper Arm] O2 Sat by Pulse 96 100 94 L Oximetry 02/01/19 02/01/19 09:20 09:21 Temperature [ Oral] Temperature [ Temporal] Pulse, 67 68 Peripheral Pulse, Peripheral [ Left Pulse Oximetry] Pulse, Peripheral [ Right Pulse Oximetry] Pulse, Peripheral [ Right Radial] Respiratory Rate Blood Pressure 136/89 136/89 Blood Pressure [Left Upper Arm ] Blood Pressure [Right Upper Arm] O2 Sat by Pulse Oximetry Weight - Most Recent: 138.028 kg I&O - Last 24 Hours: Intake & Output 01/31/19 02/01/19 02/01/19 22:59 06:59 14:59 Intake Total 840 200 300 Output Total 2400 600 1275 Balance -6504 -612 -316 Imaging Impressions - Last 24 Hours: vehicle monitor technician shows improved atrial fibrillation/flutter with resolution of tachycardia, however long occasional pauses with brief moderate bradycardia in the 40s to 50s, which is not symptomatic. Note occasional multiform PVCs with no other significant arrhythmia with average heart rate in the 60s to 70s. Lab Results Last 24 Hours: Laboratory Results - last 24 hr 01/31/19 01/31/19 01/31/19 Range/Units 15:25 15:25 15:25 WBC 8.6 (4.0-10.2) K/uL RBC 5.64 H (4.33-5.41) M/uL Hgb 15.8 D (13.1-16.8) g/dL Hct 47.1 (39.0-49.0) % MCV 83.5 L (84.0-98.0) fL MCH 28.0 L (28.2-33.3) pg MCHC 33.5 (31.7-36.0) g/dL RDW 14.7 H (11.2-14.1) % Plt Count 258 (150-350) K/uL Neut % (Auto) 80.8 H (45.0-80.0) % Lymph % (Auto) 11.2 (10.0-50.0) % Stephens % (Auto) 7.7 (2.0-14.0) % Eos % (Auto) 0.1 (0.0-5.0) % Baso % (Auto) 0.2 (0.0-2.0) % Neut # (Auto) 6.94 (1.40-7.00) K/uL Lymph # (Auto) 0.96 (0.50-3.50) K/uL [place] # (Auto) 0.66 (0.00-1.00) K/uL Eos # (Auto) 0.01 (0.00-0.50) K/uL Baso # (Auto) 0.02 (0.00-0.20) K/uL PT 16.2 H D (9.5-12.0) SEC INR 1.5 APTT 29.6 (21.0-31.3) SEC Sodium 141 (136-145) mmol/L Potassium 3.8 (3.5-5.1) mmol/L Chloride 105 (98-107) mmol/L Carbon Dioxide 23.9 (21.0-32.0) mmol/L BUN 25 H (7-18) mg/dL Creatinine 1.15 (0.51-1.17) mg/dL Est Cr Clr Drug Dosing TNP Estimated GFR (MDRD) > 60 mL/min Glucose 258 H (74-106) mg/dL Hemoglobin A1c (4.3-5.7) % Lactic Acid (0.4-2.0) mmol/L Uric Acid 9.2 H (2.6-7.2) mg/dL Calcium 9.1 (8.5-10.1) mg/dL Magnesium 1.6 L (1.8-2.4) mg/dL Total Bilirubin 0.6 (0.2-1.0) mg/dL AST 20 (15-37) U/L ALT 78 (12-78) U/L Alkaline Phosphatase 119 H (46-116) IU/L Creatine Kinase 36 (26-308) U/L Creatine Kinase Index 4.2 H (0.0-2.5) % CK-MB (CK-2) 1.50 (0.00-3.60) ng/mL Troponin I 0.031 (0.000-0.056) ng/mL NT-Pro-B Natriuret Pep 979 H (0-125) pg/mL Total Protein 7.4 (6.4-8.2) g/dL Albumin 3.3 L (3.4-5.0) g/dL Triglycerides (30-150) mg/dL Cholesterol (100-200) mg/dL LDL Cholesterol, Calc (0-100) mg/dL HDL Cholesterol (40-60) mg/dL TSH, Ultra Sensitive 1.214 (0.358-3.740) mIU/mL Digoxin 0.52 L (0.90-2.00) ng/mL Ethyl Alcohol 0.000 (0.000-0.080) g/dL 01/31/19 01/31/19 02/01/19 Range/Units 15:25 20:44 07:06 WBC 7.4 (4.0-10.2) K/uL RBC 5.81 H (4.33-5.41) M/uL Hgb 16.2 (13.1-16.8) g/dL Hct 48.5 (39.0-49.0) % MCV 83.5 L (84.0-98.0) fL MCH 27.9 L (28.2-33.3) pg MCHC 33.4 (31.7-36.0) g/dL RDW 14.6 H (11.2-14.1) % Plt Count 220 (150-350) K/uL Neut % (Auto) 53.1 (45.0-80.0) % Lymph % (Auto) 37.2 (10.0-50.0) % Stephens % (Auto) 8.0 (2.0-14.0) % Eos % (Auto) 1.2 (0.0-5.0) % Baso % (Auto) 0.5 (0.0-2.0) % Neut # (Auto) 3.93 (1.40-7.00) K/uL Lymph # (Auto) 2.75 (0.50-3.50) K/uL Stephens # (Auto) 0.59 (0.00-1.00) K/uL Eos # (Auto) 0.09 (0.00-0.50) K/uL Baso # (Auto) 0.04 (0.00-0.20) K/uL PT (9.5-12.0) SEC INR APTT (21.0-31.3) SEC Sodium (136-145) mmol/L Potassium (3.5-5.1) mmol/L Chloride (98-107) mmol/L Carbon Dioxide (21.0-32.0) mmol/L BUN (7-18) mg/dL Creatinine (0.51-1.17) mg/dL Est Cr Clr Drug Dosing Estimated GFR (MDRD) mL/min Glucose (74-106) mg/dL Hemoglobin A1c (4.3-5.7) % Lactic Acid 1.9 (0.4-2.0) mmol/L Uric Acid (2.6-7.2) mg/dL Calcium (8.5-10.1) mg/dL Magnesium (1.8-2.4) mg/dL Total Bilirubin (0.2-1.0) mg/dL AST (15-37) U/L ALT (12-78) U/L Alkaline Phosphatase (46-116) IU/L Creatine Kinase 37 (26-308) U/L Creatine Kinase Index 4.1 H (0.0-2.5) % CK-MB (CK-2) 1.50 (0.00-3.60) ng/mL Troponin I 0.024 (0.000-0.056) ng/mL NT-Pro-B Natriuret Pep (0-125) pg/mL Total Protein (6.4-8.2) g/dL Albumin (3.4-5.0) g/dL Triglycerides (30-150) mg/dL Cholesterol (100-200) mg/dL LDL Cholesterol, Calc (0-100) mg/dL HDL Cholesterol (40-60) mg/dL TSH, Ultra Sensitive (0.358-3.740) mIU/mL Digoxin (0.90-2.00) ng/mL Ethyl Alcohol (0.000-0.080) g/dL 02/01/19 02/01/19 Range/Units 07:06 07:06 WBC (4.0-10.2) K/uL RBC (4.33-5.41) M/uL Hgb (13.1-16.8) g/dL Hct (39.0-49.0) % MCV (84.0-98.0) fL MCH (28.2-33.3) pg MCHC (31.7-36.0) g/dL RDW (11.2-14.1) % Plt Count (150-350) K/uL Neut % (Auto) (45.0-80.0) % Lymph % (Auto) (10.0-50.0) % [place] % (Auto) (2.0-14.0) % Eos % (Auto) (0.0-5.0) % Baso % (Auto) (0.0-2.0) % Neut # (Auto) (1.40-7.00) K/uL Lymph # (Auto) (0.50-3.50) K/uL [place] # (Auto) (0.00-1.00) K/uL Eos # (Auto) (0.00-0.50) K/uL Baso # (Auto) (0.00-0.20) K/uL PT (9.5-12.0) SEC INR APTT (21.0-31.3) SEC Sodium 144 (136-145) mmol/L Potassium 3.5 (3.5-5.1) mmol/L Chloride 103 (98-107) mmol/L Carbon Dioxide 28.7 (21.0-32.0) mmol/L BUN 24 H (7-18) mg/dL Creatinine 1.01 (0.51-1.17) mg/dL Est Cr Clr Drug Dosing 90.43 Estimated GFR (MDRD) > 60 mL/min Glucose 163 H (74-106) mg/dL Hemoglobin A1c 6.9 H (4.3-5.7) % Lactic Acid (0.4-2.0) mmol/L Uric Acid (2.6-7.2) mg/dL Calcium 9.2 (8.5-10.1) mg/dL Magnesium (1.8-2.4) mg/dL Total Bilirubin 0.7 (0.2-1.0) mg/dL AST 24 (15-37) U/L ALT 74 (12-78) U/L Alkaline Phosphatase 115 (46-116) IU/L Creatine Kinase 29 (26-308) U/L Creatine Kinase Index 5.5 H (0.0-2.5) % CK-MB (CK-2) 1.60 (0.00-3.60) ng/mL Troponin I 0.031 (0.000-0.056) ng/mL NT-Pro-B Natriuret Pep 986 H (0-125) pg/mL Total Protein 7.3 (6.4-8.2) g/dL Albumin 3.3 L (3.4-5.0) g/dL Triglycerides 104 (30-150) mg/dL Cholesterol 115 (100-200) mg/dL LDL Cholesterol, Calc 65 (0-100) mg/dL HDL Cholesterol 29 L (40-60) mg/dL TSH, Ultra Sensitive (0.358-3.740) mIU/mL Digoxin (0.90-2.00) ng/mL Ethyl Alcohol (0.000-0.080) g/dL [place] Results Last 24 Hours: None Med Orders - Current: Current Medications Acetaminophen (Tylenol) 650 mg PO Q4H PRN PRN Reason: Pain Last Admin: 02/01/19 08:14 Dose: 650 mg Apixaban (Eliquis) 5 mg PO BID@0900,2100 [facility] Last Admin: 02/01/19 09:03 Dose: 5 mg Atorvastatin Calcium (Lipitor) 80 mg PO BEDTIME [facility] Last Admin: 01/31/19 20:05 Dose: 80 mg Colchicine (Colcrys) 0.6 mg PO DAILY PRN PRN Reason: gout flare Last Admin: 01/31/19 18:22 Dose: 0.6 mg Digoxin (Lanoxin) 125 mcg PO DAILY [facility] Last Admin: 02/01/19 09:20 Dose: 125 mcg Diltiazem HCl (Cardizem Cd) 120 mg PO DAILY [facility] Last Admin: 02/01/19 09:21 Dose: 120 mg Furosemide (Lasix) 40 mg IVPUSH Q12H [facility] Last Admin: 02/01/19 05:49 Dose: 40 mg Magnesium Oxide (Magnesium Oxide) 400 mg PO QPM [facility] Last Admin: 01/31/19 18:23 Dose: 400 mg Metoprolol Succinate (Toprol Xl) 25 mg PO BID [facility] Last Admin: 02/01/19 09:20 Dose: 25 mg Potassium Chloride (Klor-Con M20) 20 meq PO BID [facility] Last Admin: 02/01/19 09:03 Dose: 20 meq Prednisone (Prednisone) 5 mg PO DAILY [facility] Last Admin: 02/01/19 09:03 Dose: 5 mg Pregabalin (Lyrica) 75 mg PO BID [facility] Last Admin: 02/01/19 09:03 Dose: 75 mg Sodium Chloride (Saline Flush) 10 ml FLUSH ASDIRECTED PRN PRN Reason: Keep Vein Open Last Admin: 02/01/19 05:49 Dose: 10 ml Sodium Chloride (Saline Flush) 10 ml FLUSH Q12HR PRN PRN Reason: Keep Vein Open Temazepam (Restoril) 15 mg PO BEDTIME PRN PRN Reason: Insomnia Discontinued Medications Diltiazem HCl (Diltiazem) 20 mg IVPUSH ONETIME ONE Stop: 01/31/19 15:25 Last Admin: 01/31/19 15:28 Dose: 10 mg Diltiazem HCl (Cardizem Cd) 180 mg PO DAILY [facility] Famotidine (Pepcid) 40 mg IVPUSH ONETIME ONE Stop: 01/31/19 15:24 Last Admin: 01/31/19 15:34 Dose: 40 mg Metoprolol Succinate (Toprol Xl) 25 mg PO QPM [facility] Last Admin: 01/31/19 18:23 Dose: 25 mg Prednisone (Prednisone) 10 mg PO DAILY [facility] - Exam Quality Assessment: DVT Prophylaxis (Eliquis). No: Supplemental Oxygen, Urine Catheter, Skin Breakdown, Restraints General: Alert, Oriented, Cooperative, No Acute Distress HEENT: Pupils Equal, Pupils Reactive, EOMI, Mucous Membr. Moist/[place] Neck: Supple, Trachea Midline, No JVD, No Thyromegaly, +2 Carotid Pulse wo Bruit Lungs: Clear to Auscultation, Normal Respiratory Effort. No: Rub Cardiovascular: Regular Rate, No Murmurs, Irregular Rhythm. No: Gallops, Rubs GI/Abdominal Exam: Normal Bowel Sounds, Soft, Non-Tender, No Organomegaly, No Distention, No Abnormal Bruit, No Mass, Other (Obese). No: Guarding (Male) Exam: Deferred Back Exam: No: CVA Tenderness (L), CVA Tenderness (R), Muscle Spasm Extremities: Normal Range of Motion, Non-Tender, No Pedal Edema, Normal Capillary Refill, Other (Stable 1 centimeter grade 12 pressure ulcer over the medial surface of the left great toe with no local signs of infection. Stable moderate venous stasis dermatitis.). No: Tim's Sign Peripheral Pulses: 2+: Brachial (L), Brachial (R), Dorsalis Pedis (L), Dorsalis Pedis (R) Skin: Other (As above) Wound/Incisions: Healing Well, No Drainage, Other (As above) Neurological: No New Focal Deficit, Other (Stable dysarthria and ataxia from recent CVA. No clinical orthostasis) Psy/Mental Status: Alert, Anxious (Moderate), Depressed (Moderate with adequate eye contact). No: Agitated, Hallucinations, Withdrawal Symptoms EKG INTERPRETATION EKG Date: 02/01/19 Time: 07:49 Rhythm: A-Fib (With no PVCs) Rate (Beats/Min): 62 [place]: LAD-Left [place] Deviation (Mildly extended left cardiac axis) P-Wave: Variable QRS: Normal (0.08 seconds) ST-T: Normal QT: Normal MN/PQ Interval: Variable with extreme poor R-wave progression in the anterior leads Comparison: Change From Previous EKG (Resolved PVCs from EKG on 01/31/19) EKG Interpretation Comments: 1. No acute ischemic changes 2. Atrial fibrillation - Problem List & Annotations (1) Atrial flutter SNOMED Code(s): 6825616 Code(s): I48.92 - UNSPECIFIED ATRIAL FLUTTER Status: Acute Priority: High Current Visit: Yes Onset Date: ~01/30/19 Qualifiers: Atrial flutter type: typical Qualified Code(s): I48.3 - Typical atrial flutter Annotation/Comment:: No recurrence of tachycardia at rest with multiple medication changes on admission. Note previous clinic evaluation on 01/30/19 with increased tachycardia prior to arrival. No chest pain or anginal type symptoms. Chest pain protocol was initiated at time of arrival, however, with no ASA or Brilinta were given secondary to absence of anginal complaints, current Eliquis, and recently discontinued Coumadin therapy on 01/30. Note INR was previously elevated and is subtherapeutic at this time. Some problems with multiple recent changes in his medical therapy as above with exact medical regimen unknown and possibility of noncompliance with his medications. Note apparent moderate bradycardia with previous Sotolo therapy with patient changed to digoxin prior to discharge from [place]. Mildly subtherapeutic digoxin level on admission, however observe for now with adjustment of the timing of his current medications depending on his clinical course. Note that the patient' s did bring the actual medications to the hospital on 01/31 with patient no longer taking diltiazem secondary to a misunderstanding, although this was on the discharge medication list based on review of medical records from [place]. Diltiazem therapy was reduced on 02/01 secondary to patient's high- dose Lipitor and concurrent digoxin therapy. Low-dose Toprol XL was also initiated on admission.Overall good response to IV diltiazem therapy in the emergency room with patient previously very responsive to this medication. He needed multiple medication adjustments during this hospitalization secondary to current CHF, refractory atrial fibrillation/flutter, etc. with inpatient care and therefore required. Attempt to decrease his caffeine intake. Further cardiology consultation depending on his clinical course. (2) Coronary artery disease SNOMED Code(s): 48135670 Code(s): I25.10 - ATHSCL HEART DISEASE OF [place] CORONARY ARTERY W/O ANG PCTRS Status: Chronic Priority: Medium Current Visit: Yes Qualifiers: Coronary Disease-Associated Artery/Lesion type: [place] artery [place] vs. transplanted heart: [place] heart Associated angina: without angina Qualified Code(s): I25.10 - Atherosclerotic heart disease of [place] coronary artery without angina pectoris Annotation/Comment:: As above. Negative workup for acute VT with mildly changed troponin I, which is still normal, likely secondary to his CHF. Relatively stable BNP at this time. Note artifactually elevated CK index secondary to low baseline CK. EKGs shows no sign of significant acute ischemic changes. Known history of nonoperable coronary artery disease as per emergency room note with no chest pain or anginal type symptoms during this hospitalization. (3) CVA (cerebral vascular accident) SNOMED Code(s): 128610489 Code(s): I63.9 - CEREBRAL INFARCTION, UNSPECIFIED Status: Acute Priority : Medium Current Visit: Yes Onset Date: 11/19/19 Qualifiers: CVA mechanism: occlusion Precerebral and cerebral artery: cerebellar artery Laterality of affected vessel: right Qualified Code(s): I63.541 - Cerebral infarction due to unspecified occlusion or stenosis of right cerebellar artery Annotation/Comment:: Stable neurological exam during this hospitalization. Note right cerebellar ischemic CVA on 01/23/19 in [place] with current Eliquis therapy. The patient and his were counseled extensively on 02/01 and strongly encouraged not to use any additional ASA, ibuprofen, Aleve, or other NSAIDs secondary to his current Eliquis. Continue PT and OT on an outpatient basis. (4) Dyslipidemia SNOMED Code(s): 504704415 Code(s): E78.5 - HYPERLIPIDEMIA, UNSPECIFIED Status: Acute Priority: High Current Visit: Yes Onset Date: 12/13/17 Annotation/Comment:: Lipid panel on 02/01 showed persistent dyslipidemia including an HDL of 28. Patient was recently discharged from [place] on high-dose Lipitor 80 mg daily. Weight loss in moderation strongly advisable, which was extensively discussed the patient and his on 02/01. Dietary information at time of discharge with patient placed on a weight loss diet during this hospitalization. (5) Hypertension SNOMED Code(s): 44204619 Code(s): I10 - ESSENTIAL (PRIMARY) HYPERTENSION Status: Acute Priority: High Current Visit: Yes Qualifiers: Hypertension type: essential hypertension Qualified Code(s): I10 - Essential (primary) hypertension Annotation/Comment:: Blood pressures stable during this hospitalization and improved from initially somewhat low blood pressures in the emergency room. Initiated low-dose lisinopril with caution on 02/01. Continue to observe closely by his regular providers at discharge. (6) Hypomagnesemia SNOMED Code(s): 435074224 Code(s): E83.42 - HYPOMAGNESEMIA Status: Chronic Priority: Medium Current Visit: Yes Onset Date: 11/30/18 Annotation/Comment:: Renitiated magnesium oxide therapy especially in light of patient's occasional constipation and refractory arrhythmia on admission. Continue close follow-up by his regular providers at discharge. (7) Apnea, sleep SNOMED Code(s): 46282697 Code(s): G47.30 - SLEEP APNEA, UNSPECIFIED Status: Chronic Priority: Medium Current Visit: Yes Qualifiers: Sleep apnea type: obstructive Qualified Code(s): G47.33 - Obstructive sleep apnea (adult) (pediatric) Annotation/Comment:: Patient just restarted his CPAP again with strict compliance with this therapy strongly encouraged especially in light of recent secondary CVA as above. Compliance with this therapy been initiated in the past. Weight loss strongly encouraged as above. Note recent sleep study on for CPAP titration. Note significant restless leg syndrome with low-dose Mirapex restarted during this hospitalization. (8) Diabetes mellitus SNOMED Code(s): 86023853 Code(s): E11.9 - TYPE 2 DIABETES MELLITUS WITHOUT COMPLICATIONS Status: Chronic Priority: Medium Current Visit: Yes Qualifiers: Diabetes mellitus type: type 2 Diabetes mellitus penitentiary insulin use: without ad terminal makeup operator use Diabetes mellitus complication status: with kidney complications Diabetes mellitus complication detail: with chronic kidney disease Chronic kidney disease stage: stage 2 (mild) Qualified Code(s): E11.22 - Type 2 diabetes mellitus with diabetic chronic kidney disease; N18.2 - Chronic kidney disease, stage 2 (mild) Annotation/Comment:: Patient does not take Accu-Cheks at home. Glycosylated hemoglobin 6.9% on 02/01. Restart metformin, which will also be beneficial for his weight loss. Note history of diabetic nephropathy and neuropathy. Continued dietary changes encouraged as above. Note patient had been taking his prednisone therapy incorrectly with this to be quickly tapered. Prednisone was apparently prescribed for his chronic foot pain/diabetic neuropathy? with no history of gout attack. (9) Osteoarthritis SNOMED Code(s): 565866651 Code(s): M19.90 - UNSPECIFIED OSTEOARTHRITIS, UNSPECIFIED SITE Status: Chronic Priority: Medium Current Visit: Yes Qualifiers: Osteoarthritis location: multiple joints Osteoarthritis type: primary Qualified Code(s): M15.0 - Primary generalized (osteo)arthritis Annotation/Comment:: Uric acid stable from previous evaluations despite mild persistent elevation on admission. IV Lasix therapy with caution with no current gout-type symptoms. His arthritis is otherwise stable by patient history. (10) Renal insufficiency SNOMED Code(s): 625287119, 095089116 Code(s): N28.9 - DISORDER OF KIDNEY AND URETER, UNSPECIFIED Status: Chronic Priority: Medium Current Visit: Yes Annotation/Comment:: Stable during this hospitalization. Lisinopril reinitiated as above. (11) Hypoalbuminemia SNOMED Code(s): 633915190 Code(s): E88.09 - OTH DISORDERS OF PLASMA-PROTEIN METABOLISM, NEC Status: Chronic Priority: Medium Current Visit: Yes Annotation/Comment:: Observe for now. Consider high-protein Glucerna supplements, however weight loss advisable at this time. - Problem List Review Problem List Initiated/Reviewed/Updated: Yes - My Orders Last 24 Hours: My Active Orders 01/31/19 15:23 Cardiac Monitoring [RC] Q2HR EKG Documentation Completion [RC] ASDIRECTED Oxygen Therapy, ED [RC] PRN Peripheral IV Care [RC] . DIRECTED Chest 1V Frontal [CR] Stat Sodium Chloride 0.9% [Saline Flush] 10 ml FLUSH ASDIRECTED PRN Peripheral IV Insertion Adult [OM.PC] Stat Resuscitation Status Stat 01/31/19 17:28 Colchicine [Colcrys] 0.6 mg PO DAILY PRN 01/31/19 17:29 Communication Order [RC] ROUTINE Communication Order [RC] ROUTINE Height and Weight [RC] DAILY Intake and Output Strict [RC] ,18 Oxygen Therapy [RC] PRN Pulse Oximetry [RC] ASDIRECTED Up With Assistance [RC] ASDIRECTED VTE Risk Score [RC] UPON OCCULT BLOOD DIAGNOSTIC [OP] Stat Acetaminophen [Tylenol] 650 mg PO Q4H PRN Sodium Chloride 0.9% [Saline Flush] 10 ml FLUSH Q12HR PRN Temazepam [Restoril] 15 mg PO BEDTIME PRN Antiembolic Hose [OM.PC] Routine CHF Questionnaire [COMM] Routine DVT/VTE Prophylaxis Reflex [OM.PC] Routine GM Immunization Reflex [OM.PC] Click To Edit 01/31/19 17:30 Antiembolic Devices [RC] .Routine Antiembolic Devices [RC] PER UNIT ROUTINE Communication, Vaccine [RC] PER UNIT ROUTINE VTE/DVT Education [RC] PER UNIT ROUTINE Vaccines to be Administered [RC] PER UNIT ROUTINE Furosemide [Lasix] 40 mg IVPUSH Q12H 01/31/19 18:00 Magnesium Oxide 400 mg PO QPM Potassium Chloride [Klor-Con M20] 20 meq PO BID Pregabalin [Lyrica] 75 mg PO BID 01/31/19 20:00 atorvaSTATin [Lipitor] 80 mg PO BEDTIME 01/31/19 21:00 Apixaban [Eliquis] 5 mg PO BID@0900,2100 02/01/19 05:11 EKG Documentation Completion [RC] ASDIRECTED EKG 12 Lead [EK] Routine 02/01/19 08:00 Digoxin [Lanoxin] 125 mcg PO DAILY Diltiazem [Cardizem CD] 120 mg PO DAILY Metoprolol Succinate [Toprol XL] 25 mg PO BID predniSONE 5 mg PO DAILY 02/01/19 09:13 Vital Signs [RC] Q2H 02/01/19 11:05 Communication Order [RC] ROUTINE 02/01/19 Breakfast Fluid Restriction [DIET] - Assessment Assessment:: As above - Plan Plan:: As above. Extensive precautions were given to the patient and his , who are in agreement with the treatment plan. Patient will require an additional 1?3 days of inpatient/acute care.
[2019-02-01] MEDS: Colchicine 0.6 MG Tab PO PRN (13:16)
[2019-02-01] MEDS: metFORMIN 500 MG Tab PO SCH (17:28)
[2019-02-01] MEDS: Magnesium Oxide 400 MG Tab PO SCH (17:29)
[2019-02-01] MEDS: Lisinopril 10 MG Tab PO SCH (17:29)
[2019-02-01] MEDS: atorvaSTATin 40 MG Tab PO SCH (20:28)
[2019-02-01] MEDS: Pramipexole 0.5 MG Tab PO SCH (20:28)
[2019-02-02] MEDS: Furosemide 40 MG/4 ML VIAL IVPUSH SCH (05:10)
[2019-02-02] MEDS: Sodium Chloride 0.9% 10 ML Syringe FLUSH PRN (05:10)
[2019-02-02 07:31] LABS: CHLORIDE,CL 102 mmol/L (98-107); SODIUM,NA 141 mmol/L (136-145)
[2019-02-02] MEDS: Digoxin 125 MCG Tab PO SCH (08:08)
[2019-02-02] MEDS: Diltiazem 120 MG Cap.CD PO SCH (08:09)
[2019-02-02] MEDS: Pregabalin 75 MG Cap PO SCH ×2 (08:09→17:44)
[2019-02-02] MEDS: predniSONE 5 MG Tab PO SCH (08:10)
[2019-02-02] MEDS: Potassium Chloride 20 MEQ Tab.ER PO SCH (08:10)
[2019-02-02] MEDS: metFORMIN 500 MG Tab PO SCH ×2 (08:10→17:43)
[2019-02-02] MEDS: Apixaban 5 MG Tab PO SCH ×2 (08:11→20:52)
[2019-02-02] MEDS: Metoprolol Succinate 25 MG Tab.ER PO SCH (08:11)
[2019-02-02] MEDS ORDERED: Metoprolol Succinate 25 MG Tab.ER PO ONE (08:48)
[2019-02-02] MEDS: Allopurinol 100 MG Tab PO SCH (09:56)
--- NOTE | 2019-02-02 11:29 | PCM.PN ---
- General Info Date of Service: 02/02/19 Admission Dx/Problem (Free Text): 1. Atrial fibrillation with rapid ventricular response 2. CHF 3. Coronary artery disease 4. Diabetes mellitus Functional Status: Reports: Pain Controlled, Tolerating Diet, Ambulating, Urinating, Incentive Spirometry. Denies: New Symptoms Pain Score: 8 (Left ankle and bilateral foot pain with ambulation only) - Review of Systems General: Reports: No Symptoms. Denies: Fever, Weakness, Fatigue, Malaise, Chills, Night Sweats, Appetite (Adequate) HEENT: Reports: No Symptoms. Denies: Ear Pain, Eye Pain, Headaches, Sinus Congestion, Sore Throat, Rhinitis, Visual Changes Pulmonary: Reports: No Symptoms. Denies: Shortness of Breath, Pleuritic Chest Pain, Cough, Sputum, Wheezing Cardiovascular: Reports: Palpitations (With ambulation), Edema (Dependent edema) . Denies: Chest Pain, Dyspnea on Exertion, Orthopnea, Lightheadedness Gastrointestinal: Reports: No Symptoms. Denies: Abdominal Pain, Constipation, Decreased Appetite, Diarrhea, Difficulty Swallowing, Flatus, Hematochezia, Melena, Nausea, Vomiting Genitourinary: Reports: No Symptoms. Denies: Dysuria, Frequency, Burning, Pain , Urgency, Incontinence, Hematuria, Retention, Flank Pain Musculoskeletal: Reports: Foot Pain (As above), Joint Pain (Left ankle as above) . Denies: Neck Pain, Shoulder Pain, Arm Pain, Back Pain, Joint Swelling Skin: Reports: Rash (Stable venous stasis dermatitis) Neurological: Reports: Confusion (Borderline), Pre-Existing Deficit (Stable dystaxia and dysarthria), Difficulty Walking (Secondary to foot pain). Denies: Headache, Numbness, Paresthesia, Tingling, Weakness - Patient Data Vitals - Most Recent: Last Vital Signs Temp 37.1 C 02/02/19 08:00 Pulse 78 02/02/19 09:56 Resp 17 02/02/19 08:00 BP 101/73 02/02/19 09:56 Pulse Ox 97 02/02/19 08:00 Vital Signs - 24 hr 02/01/19 02/01/19 02/01/19 11:43 13:00 15:10 Temperature [ 36.4 C 36.3 C 36.6 C Oral] Temperature [ Temporal] Pulse, Peripheral Pulse, Peripheral [ Right Pulse Oximetry] Pulse, 59 L 54 L 98 Peripheral [ Right Radial] Respiratory 16 16 16 Rate Blood Pressure Blood Pressure 120/90 130/80 119/89 [Left Upper Arm ] Blood Pressure [Right Upper Arm] O2 Sat by Pulse 95 100 97 Oximetry 02/01/19 02/01/19 02/01/19 17:28 17:29 18:00 Temperature [ Oral] Temperature [ 36.7 C Temporal] Pulse, 82 Peripheral Pulse, 82 Peripheral [ Right Pulse Oximetry] Pulse, Peripheral [ Right Radial] Respiratory 20 Rate Blood Pressure 133/89 133/89 Blood Pressure 133/89 [Left Upper Arm ] Blood Pressure [Right Upper Arm] O2 Sat by Pulse 99 Oximetry 02/01/19 02/01/19 02/02/19 20:00 23:40 04:00 Temperature [ 36.7 C 36.3 C 36.4 C Oral] Temperature [ Temporal] Pulse, Peripheral Pulse, 79 Peripheral [ Right Pulse Oximetry] Pulse, 82 92 Peripheral [ Right Radial] Respiratory 18 18 15 Rate Blood Pressure Blood Pressure 91/50 L 118/84 107/76 [Left Upper Arm ] Blood Pressure 128/77 [Right Upper Arm] O2 Sat by Pulse 96 98 96 Oximetry 02/02/19 02/02/19 02/02/19 08:00 08:08 08:09 Temperature [ 37.1 C Oral] Temperature [ Temporal] Pulse, 143 H 143 H Peripheral Pulse, 50 L Peripheral [ Right Pulse Oximetry] Pulse, Peripheral [ Right Radial] Respiratory 17 Rate Blood Pressure 113/82 Blood Pressure 113/82 [Left Upper Arm ] Blood Pressure [Right Upper Arm] O2 Sat by Pulse 97 Oximetry 02/02/19 02/02/19 02/02/19 08:11 09:56 11:24 Temperature [ 36.4 C Oral] Temperature [ Temporal] Pulse, 143 H 78 Peripheral Pulse, 78 Peripheral [ Right Pulse Oximetry] Pulse, Peripheral [ Right Radial] Respiratory 18 Rate Blood Pressure 113/82 101/73 Blood Pressure 118/73 [Left Upper Arm ] Blood Pressure [Right Upper Arm] O2 Sat by Pulse 100 Oximetry Weight - Most Recent: 136.214 kg I&O - Last 24 Hours: Intake & Output 02/01/19 02/02/19 02/02/19 22:59 06:59 14:59 Intake Total 300 1200 Output Total 840 750 Balance -840 -450 1200 Imaging Impressions - Last 24 Hours: classroom monitor shows persistent breakthrough tachycardia especially with ambulation in the 140s with otherwise atrial fibrillation in the 70s to low 100s with no extrasystoles, including returned PVCs Lab Results Last 24 Hours: Laboratory Results - last 24 hr 02/02/19 02/02/19 Range/Units 06:53 06:53 WBC 7.8 (4.0-10.2) K/uL RBC 5.89 H (4.33-5.41) M/uL Hgb 16.6 (13.1-16.8) g/dL Hct 49.1 H (39.0-49.0) % MCV 83.4 L (84.0-98.0) fL MCH 28.2 (28.2-33.3) pg MCHC 33.8 (31.7-36.0) g/dL RDW 14.4 H (11.2-14.1) % Plt Count 228 (150-350) K/uL Neut % (Auto) 63.6 (45.0-80.0) % Lymph % (Auto) 26.0 (10.0-50.0) % [place] % (Auto) 8.1 (2.0-14.0) % Eos % (Auto) 1.7 (0.0-5.0) % Baso % (Auto) 0.6 (0.0-2.0) % Neut # (Auto) 4.94 (1.40-7.00) K/uL Lymph # (Auto) 2.02 (0.50-3.50) K/uL [place] # (Auto) 0.63 (0.00-1.00) K/uL Eos # (Auto) 0.13 (0.00-0.50) K/uL Baso # (Auto) 0.05 (0.00-0.20) K/uL Sodium 141 (136-145) mmol/L Potassium 3.7 (3.5-5.1) mmol/L Chloride 102 (98-107) mmol/L Carbon Dioxide 29.8 (21.0-32.0) mmol/L BUN 26 H (7-18) mg/dL Creatinine 0.95 (0.51-1.17) mg/dL Est Cr Clr Drug Dosing 96.14 mL/min Estimated GFR (MDRD) > 60 mL/min Glucose 179 H (74-106) mg/dL Uric Acid 10.2 H (2.6-7.2) mg/dL Calcium 9.4 (8.5-10.1) mg/dL Magnesium 1.8 (1.8-2.4) mg/dL NT-Pro-B Natriuret Pep 405 H (0-125) pg/mL [place] Results Last 24 Hours: None Med Orders - Current: Current Medications Acetaminophen (Tylenol) 650 mg PO Q4H PRN PRN Reason: Pain Last Admin: 02/01/19 13:15 Dose: 650 mg Allopurinol (Zyloprim) 100 mg PO DAILY [facility] Last Admin: 02/02/19 09:56 Dose: 100 mg Apixaban (Eliquis) 5 mg PO BID@0900,2100 [facility] Last Admin: 02/02/19 08:11 Dose: 5 mg Atorvastatin Calcium (Lipitor) 80 mg PO BEDTIME [facility] Last Admin: 02/01/19 20:28 Dose: 80 mg Colchicine (Colcrys) 0.6 mg PO DAILY PRN PRN Reason: gout flare Last Admin: 02/01/19 13:16 Dose: 0.6 mg Digoxin (Lanoxin) 125 mcg PO DAILY [facility] Last Admin: 02/02/19 08:08 Dose: 125 mcg Diltiazem HCl (Cardizem Cd) 120 mg PO DAILY [facility] Last Admin: 02/02/19 08:09 Dose: 120 mg Furosemide (Lasix) 40 mg IVPUSH Q12H [facility] Last Admin: 02/02/19 05:10 Dose: 40 mg Lisinopril (Prinivil) 5 mg PO QPM [facility] Last Admin: 02/01/19 17:29 Dose: 5 mg Magnesium Oxide (Magnesium Oxide) 400 mg PO QPM [facility] Last Admin: 02/01/19 17:29 Dose: 400 mg Metformin HCl (Glucophage) 500 mg PO BIDMEALS [facility] Last Admin: 02/02/19 08:10 Dose: 500 mg Metoprolol Succinate (Toprol Xl) 50 mg PO BID [facility] Potassium Chloride (Klor-Con M20) 20 meq PO BID [facility] Last Admin: 02/02/19 08:10 Dose: 20 meq Pramipexole Dihydrochloride (Mirapex) 0.5 mg PO BEDTIME [facility] Last Admin: 02/01/19 20:28 Dose: 0.5 mg Prednisone (Prednisone) 5 mg PO DAILY [facility] Last Admin: 02/02/19 08:10 Dose: 5 mg Pregabalin (Lyrica) 75 mg PO BID [facility] Last Admin: 02/02/19 08:09 Dose: 75 mg Sodium Chloride (Saline Flush) 10 ml FLUSH ASDIRECTED PRN PRN Reason: Keep Vein Open Last Admin: 02/02/19 05:10 Dose: 10 ml Sodium Chloride (Saline Flush) 10 ml FLUSH Q12HR PRN PRN Reason: Keep Vein Open Temazepam (Restoril) 15 mg PO BEDTIME PRN PRN Reason: Insomnia Discontinued Medications Diltiazem HCl (Diltiazem) 20 mg IVPUSH ONETIME ONE Stop: 01/31/19 15:25 Last Admin: 01/31/19 15:28 Dose: 10 mg Diltiazem HCl (Cardizem Cd) 180 mg PO DAILY [facility] Famotidine (Pepcid) 40 mg IVPUSH ONETIME ONE Stop: 01/31/19 15:24 Last Admin: 01/31/19 15:34 Dose: 40 mg Metoprolol Succinate (Toprol Xl) 25 mg PO QPM [facility] Last Admin: 01/31/19 18:23 Dose: 25 mg Metoprolol Succinate (Toprol Xl) 25 mg PO BID [facility] Last Admin: 02/02/19 08:11 Dose: 25 mg Metoprolol Succinate (Toprol Xl) 25 mg PO ONETIME ONE Stop: 02/02/19 08:49 Last Admin: 02/02/19 09:56 Dose: 25 mg Prednisone (Prednisone) 10 mg PO DAILY [facility] - Exam Quality Assessment: DVT Prophylaxis (Eliquis). No: Supplemental Oxygen, Central Line/PICC, Urine Catheter, Skin Breakdown General: Alert, Oriented, Cooperative, No Acute Distress HEENT: Pupils Equal, Pupils Reactive, EOMI, Mucous Membr. Moist/[place]ck: Supple, Trachea Midline, No JVD, No Thyromegaly, +2 Carotid Pulse wo Bruit. No: Lymphadenopathy Lungs: Normal Respiratory Effort, Rales (Mild bilateral basilar rales). No: Rhonchi, Rub, Wheezing Cardiovascular: Regular Rate, No Murmurs, Irregular Rhythm. No: Gallops, Rubs GI/Abdominal Exam: Normal Bowel Sounds, Soft, Non-Tender, No Organomegaly, No Distention, No Abnormal Bruit, No Mass, Other (Obese). No: Guarding (Male) Exam: Deferred Back Exam: Normal Inspection, Full Range of Motion. No: CVA Tenderness (L), CVA Tenderness (R), Muscle Spasm Extremities: Normal Range of Motion, Normal Capillary Refill, Pedal Edema ( Trace bilateral pedal/pretibial edema), Other (Stable 1 cm grade 12 medial ulcer of the right distal toe with no local signs of infection). No: Non- Tender (Stable nonspecific left ankle and bilateral foot pain with ambulation but not palpation), Joint Swelling, Tim's Sign, Increased Warmth, Redness Peripheral Pulses: 2+: Radial (L), Radial (R), Dorsalis Pedis (L), Dorsalis Pedis (R) Skin: Rash (Stable moderate venous stasis dermatitis of the lower extremities). No: Ecchymosis Neurological: No New Focal Deficit, Other (Stable dystaxia and dysarthria, borderline confusion) Psy/Mental Status: Alert, Anxious (Mild), Depressed (Mild to moderate). No: Agitated, Hallucinations, Withdrawal Symptoms - Problem List & Annotations (1) Atrial flutter SNOMED Code(s): 4320783 Code(s): I48.92 - UNSPECIFIED ATRIAL FLUTTER Status: Acute Priority: High Current Visit: Yes Onset Date: ~01/30/19 Qualifiers: Atrial flutter type: typical Qualified Code(s): I48.3 - Typical atrial flutter Annotation/Comment:: Note persistent moderate tachycardia with ambulation. No recurrence of tachycardia at rest with multiple medication changes on admission and during this hospitalization. Note previous clinic evaluation on 01/30/19 with increased tachycardia prior to arrival. No chest pain or anginal type symptoms. Chest pain protocol was initiated at time of arrival, however, with no ASA or Brilinta were given secondary to absence of anginal complaints, current Eliquis, and recently discontinued Coumadin therapy on 01/30. Note INR was previously elevated and was subtherapeutic on admission. Some problems with multiple recent changes in his medical therapy as above with exact medical regimen still unknown and possibility of noncompliance with his medications. Note apparent moderate bradycardia with previous Sotolol therapy with patient changed to digoxin prior to discharge from [place]. Mildly subtherapeutic digoxin level on admission, however observe for now with adjustment of the timing of his current medications depending on his clinical course. Note that the patient's did bring the actual medications to the hospital on 01/31 with patient no longer taking diltiazem secondary to a misunderstanding, although this was on the discharge medication list based on review of medical records from [place]. Diltiazem therapy was reduced on 02/01 secondary to patient's high-dose Lipitor and concurrent digoxin therapy. Low-dose Toprol XL was also initiated on admission. Overall good response to IV diltiazem therapy in the emergency room with patient previously very responsive to this medication. He needed multiple medication adjustments during this hospitalization secondary to current CHF, refractory atrial fibrillation/flutter , etc. with inpatient care and therefore required. Attempt to decrease his caffeine intake. Further cardiology consultation depending on his clinical course. (2) Coronary artery disease SNOMED Code(s): 40294763 Code(s): I25.10 - ATHSCL HEART DISEASE OF [place] CORONARY ARTERY W/O ANG PCTRS Status: Chronic Priority: Medium Current Visit: Yes Qualifiers: Coronary Disease-Associated Artery/Lesion type: [place] artery [place] vs. transplanted heart: [place] heart Associated angina: without angina Qualified Code(s): I25.10 - Atherosclerotic heart disease of [place] coronary artery without angina pectoris Annotation/Comment:: As above. Negative workup for acute NH with mildly changed troponin I, which is still normal, likely secondary to his CHF. Relatively stable BNP at this time. Note artifactually elevated CK index secondary to low baseline CK. EKGs shows no sign of significant acute ischemic changes. Known history of nonoperable coronary artery disease as per emergency room note with no chest pain or anginal type symptoms during this hospitalization. (3) CVA (cerebral vascular accident) SNOMED Code(s): 213619999 Code(s): I63.9 - CEREBRAL INFARCTION, UNSPECIFIED Status: Acute Priority : Medium Current Visit: Yes Onset Date: 01/23/19 Qualifiers: CVA mechanism: occlusion Precerebral and cerebral artery: cerebellar artery Laterality of affected vessel: right Qualified Code(s): I63.541 - Cerebral infarction due to unspecified occlusion or stenosis of right cerebellar artery Annotation/Comment:: Stable neurological exam during this hospitalization. Note right cerebellar ischemic CVA on 01/23/19 in [place] with current Eliquis therapy. The patient and his were counseled extensively on 02/01 and strongly encouraged not to use any additional ASA, ibuprofen, Aleve, or other NSAIDs secondary to his current Eliquis. Continue PT and OT on an outpatient basis. (4) Dyslipidemia SNOMED Code(s): 563389849 Code(s): E78.5 - HYPERLIPIDEMIA, UNSPECIFIED Status: Acute Priority: High Current Visit: Yes Onset Date: 12/13/17 Annotation/Comment:: Lipid panel on 02/01 showed persistent dyslipidemia including an HDL of 28. Patient was recently discharged from [place] on high-dose Lipitor 80 mg daily. Weight loss in moderation strongly advisable, which was extensively discussed the patient and his on 02/01. Dietary information at time of discharge with patient placed on a weight loss diet during this hospitalization. (5) Hypertension SNOMED Code(s): 23521680 Code(s): I10 - ESSENTIAL (PRIMARY) HYPERTENSION Status: Acute Priority: High Current Visit: Yes Qualifiers: Hypertension type: essential hypertension Qualified Code(s): I10 - Essential (primary) hypertension Annotation/Comment:: Blood pressures stable during this hospitalization and improved from initially somewhat low blood pressures in the emergency room. Initiated low-dose lisinopril with caution on 02/01. Continue to observe closely by his regular providers at discharge. (6) Hypomagnesemia SNOMED Code(s): 498328911 Code(s): E83.42 - HYPOMAGNESEMIA Status: Chronic Priority: Medium Current Visit: Yes Onset Date: 11/30/18 Annotation/Comment:: Renitiated magnesium oxide therapy especially in light of patient's occasional constipation and refractory arrhythmia on admission. Continue close follow-up by his regular providers at discharge. (7) Apnea, sleep SNOMED Code(s): 21217383 Code(s): G47.30 - SLEEP APNEA, UNSPECIFIED Status: Chronic Priority: Medium Current Visit: Yes Qualifiers: Sleep apnea type: obstructive Qualified Code(s): G47.33 - Obstructive sleep apnea (adult) (pediatric) Annotation/Comment:: Patient just restarted his CPAP again with strict compliance with this therapy strongly encouraged especially in light of recent secondary CVA as above. Compliance with this therapy has been an issue in the past. Weight loss strongly encouraged as above. Note recent sleep study on for CPAP titration. Note significant restless leg syndrome with low-dose Mirapex restarted during this hospitalization. (8) Diabetes mellitus SNOMED Code(s): 62382621 Code(s): E11.9 - TYPE 2 DIABETES MELLITUS WITHOUT COMPLICATIONS Status: Chronic Priority: Medium Current Visit: Yes Qualifiers: Diabetes mellitus type: type 2 Diabetes mellitus correction insulin use: without terminal superintendent use Diabetes mellitus complication status: with kidney complications Diabetes mellitus complication detail: with chronic kidney disease Chronic kidney disease stage: stage 2 (mild) Qualified Code(s): E11.22 - Type 2 diabetes mellitus with diabetic chronic kidney disease; N18.2 - Chronic kidney disease, stage 2 (mild) Annotation/Comment:: Patient does not take Accu-Cheks at home. Glycosylated hemoglobin 6.9% on 02/01. Restarted metformin, which will also be beneficial for his weight loss, on 02/01. Note history of diabetic nephropathy and neuropathy. Continued dietary changes encouraged as above. Note patient had been taking his prednisone therapy incorrectly with this to be quickly tapered. Prednisone was apparently prescribed for his chronic foot pain/diabetic neuropathy? with no history of gout attack. (9) Osteoarthritis SNOMED Code(s): 568956694 Code(s): M19.90 - UNSPECIFIED OSTEOARTHRITIS, UNSPECIFIED SITE Status: Chronic Priority: Medium Current Visit: Yes Qualifiers: Osteoarthritis location: multiple joints Osteoarthritis type: primary Qualified Code(s): M15.0 - Primary generalized (osteo)arthritis Annotation/Comment:: Uric acid variable, although stable from previous evaluations despite mild persistent elevation on admission. IV Lasix therapy with caution with no current gout-type symptoms. Seeing used was caution during this hospitalization with allopurinol also initiated on 02/02. His arthritis is otherwise stable by patient history. (10) Renal insufficiency SNOMED Code(s): 724564958, 114103008 Code(s): N28.9 - DISORDER OF KIDNEY AND URETER, UNSPECIFIED Status: Chronic Priority: Medium Current Visit: Yes Annotation/Comment:: Stable during this hospitalization. Lisinopril reinitiated as above. (11) Hypoalbuminemia SNOMED Code(s): 154377748 Code(s): E88.09 - OTH DISORDERS OF PLASMA-PROTEIN METABOLISM, NEC Status: Chronic Priority: Medium Current Visit: Yes Annotation/Comment:: Observe for now. Consider high-protein Glucerna supplements, however weight loss advisable at this time. - Problem List Review Problem List Initiated/Reviewed/Updated: Yes - My Orders Last 24 Hours: My Active Orders 02/01/19 11:05 Communication Order [RC] ROUTINE 02/01/19 17:30 metFORMIN [Glucophage] 500 mg PO BIDMEALS 02/01/19 18:00 Lisinopril [Prinivil] 5 mg PO QPM 02/01/19 20:00 Pramipexole [Mirapex] 0.5 mg PO BEDTIME 02/01/19 21:45 Vital Signs [RC] Q4HR 02/02/19 09:00 Allopurinol [Zyloprim] 100 mg PO DAILY 02/02/19 18:00 Metoprolol Succinate [Toprol XL] 50 mg PO BID - Assessment Assessment:: As above - Plan Plan:: As above. Extensive precautions were given to the patient, who is in agreement with the treatment plan. Patient will require an additional 1-2 days of inpatient/acute care.
[2019-02-02] MEDS: Lisinopril 10 MG Tab PO SCH (17:44)
[2019-02-02] MEDS: Magnesium Oxide 400 MG Tab PO SCH (17:44)
[2019-02-02] MEDS: Metoprolol Succinate 50 MG Tab.ER PO SCH (17:45)
[2019-02-02] MEDS: atorvaSTATin 40 MG Tab PO SCH (20:52)
[2019-02-02] MEDS: Pramipexole 0.5 MG Tab PO SCH (20:52)
[2019-02-03 07:49] VITALS: BP 108/75; PULSE 80
[2019-02-03] MEDS: metFORMIN 500 MG Tab PO SCH (07:56)
[2019-02-03] MEDS: Diltiazem 120 MG Cap.CD PO SCH (07:56)
[2019-02-03] MEDS: Metoprolol Succinate 50 MG Tab.ER PO SCH (07:57)
[2019-02-03] MEDS: Pregabalin 75 MG Cap PO SCH (07:58)
[2019-02-03] MEDS: predniSONE 5 MG Tab PO SCH (07:58)
[2019-02-03 07:59] LABS: CHLORIDE,CL 103 mmol/L (98-107); SODIUM,NA 140 mmol/L (136-145)
[2019-02-03] MEDS: Apixaban 5 MG Tab PO SCH (07:59)
[2019-02-03] MEDS: Allopurinol 100 MG Tab PO SCH (07:59)
[2019-02-03] MEDS: Digoxin 125 MCG Tab PO SCH (07:59)
[2019-02-03] MEDS ORDERED: Potassium Chloride 20 MEQ Tab.ER PO SCH (08:00)
[2019-02-03] MEDS ORDERED: Furosemide 40 MG/4 ML VIAL IVPUSH SCH (08:00)
--- NOTE | 2019-02-03 09:43 | PCM.DCSUM1 ---
Discharge Summary - Hospital Course HPI Initial Comments: See emergency room note/admission H&P Brief History: See emergency room note/admission H&P Diagnosis: Stroke: No Modified [place] Scale: No Symptoms at All Modified [place] Scale Score: 0 - Discharge Data Discharge Date: 02/03/19 Discharge Disposition: Home, Self-Care 01 Condition: Good - Referral to Home Health Primary Care Physician: Trisha Kellogg CAR RUNNER - Discharge Diagnosis/Problem(s) (1) Atrial flutter SNOMED Code(s): 6511648 ICD Code: I48.92 - UNSPECIFIED ATRIAL FLUTTER Status: Acute Priority: High Current Visit: Yes Onset Date: ~01/30/19 Problem Details: Significant improvement with increase of his beta johnny therapy with no tachycardia, extensive pauses, significant bradycardia, etc. including with ambulation. Note persistent previous moderate tachycardia with ambulation. No recurrence of tachycardia at rest in early stages of this hospitalization with multiple medication changes on admission and during this hospitalization. Note previous clinic evaluation on 01/30/19 with increased tachycardia prior to arrival. No chest pain or anginal type symptoms. Chest pain protocol was initiated at time of arrival, however, with no ASA or Brilinta were given secondary to absence of anginal complaints, current Eliquis, and recently discontinued Coumadin therapy on 01/30. Note INR was previously elevated and was subtherapeutic on admission. Some problems with multiple recent changes in his medical therapy as above with exact medical regimen previously unknown and possibility of noncompliance with his medications. Note apparent moderate bradycardia with previous Sotolol therapy with patient changed to digoxin prior to discharge from [place]. Mildly subtherapeutic digoxin level on admission, however observe for now with adjustment of the timing of his current medications depending on his clinical course. Note that the patient's did bring the actual medications to the hospital on 01/31 with patient no longer taking diltiazem secondary to a misunderstanding, although this was on the discharge medication list based on review of medical records from [place]. Diltiazem therapy was reduced on 02/01 secondary to patient's high-dose Lipitor and concurrent digoxin therapy. Low-dose Toprol XL was also initiated on admission and slowly increased during this hospitalization. Extended release preparation was ordered secondary to occasional problems with noncompliance in the patient. Overall good response to IV diltiazem therapy in the emergency room with patient previously very responsive to this medication. He needed multiple medication adjustments during this hospitalization secondary to current CHF, refractory atrial fibrillation/flutter, etc. with inpatient care and therefore required. Attempt to decrease his caffeine intake. Further cardiology consultation depending on his clinical course. The patient has already had a recent echocardiogram as per admission H&P. Qualifiers: Atrial flutter type: typical Qualified Code(s): I48.3 - Typical atrial flutter (2) Coronary artery disease SNOMED Code(s): 89768226 ICD Code: I25.10 - ATHSCL HEART DISEASE OF [place] CORONARY ARTERY W/O ANG PCTRS Status: Chronic Priority: Medium Current Visit: Yes Problem Details: As above. Negative workup for acute MA with mildly changed troponin I, which is still normal, likely secondary to his CHF. Relatively improved BNP at this time. Note artifactually elevated CK index secondary to low baseline CK. EKGs shows no sign of significant acute ischemic changes. Known history of nonoperable coronary artery disease as per emergency room note with no chest pain or anginal type symptoms during this hospitalization. Qualifiers: Coronary Disease-Associated Artery/Lesion type: [place] artery [place] vs. transplanted heart: [place] heart Associated angina: without angina Qualified Code(s): I25.10 - Atherosclerotic heart disease of [place] coronary artery without angina pectoris (3) CVA (cerebral vascular accident) SNOMED Code(s): 558032057 ICD Code: I63.9 - CEREBRAL INFARCTION, UNSPECIFIED Status: Acute Priority : Medium Current Visit: Yes Onset Date: 01/23/19 Problem Details: Stable neurological exam during this hospitalization. Note right cerebellar ischemic CVA on 01/23/19 in [place] with current Eliquis therapy. The patient and his were counseled extensively on 02/01 and strongly encouraged not to use any additional ASA, ibuprofen, Aleve, or other NSAIDs secondary to his current Eliquis. Continue PT and OT on an outpatient basis. Qualifiers: CVA mechanism: occlusion Precerebral and cerebral artery: cerebellar artery Laterality of affected vessel: right Qualified Code(s): I63.541 - Cerebral infarction due to unspecified occlusion or stenosis of right cerebellar artery (4) Dyslipidemia SNOMED Code(s): 106471035 ICD Code: E78.5 - HYPERLIPIDEMIA, UNSPECIFIED Status: Acute Priority: High Current Visit: Yes Onset Date: 12/13/17 Problem Details: Lipid panel on 02/01 showed persistent dyslipidemia including an HDL of 28. Patient was recently discharged from [place] on high-dose Lipitor 80 mg daily. Weight loss in moderation strongly advisable, which was extensively discussed the patient and his on 02/01. Dietary information at time of discharge with patient placed on a weight loss diet during this hospitalization. (5) Hypertension SNOMED Code(s): 31172530 ICD Code: I10 - ESSENTIAL (PRIMARY) HYPERTENSION Status: Acute Priority: High Current Visit: Yes Problem Details: Blood pressures stable during this hospitalization and improved from initially somewhat low blood pressures in the emergency room. Initiated low-dose lisinopril with caution on 02/01. Continue to observe closely by his regular providers at discharge. Qualifiers: Hypertension type: essential hypertension Qualified Code(s): I10 - Essential (primary) hypertension (6) Hypomagnesemia SNOMED Code(s): 122646288 ICD Code: E83.42 - HYPOMAGNESEMIA Status: Chronic Priority: Medium Current Visit: Yes Onset Date: 11/30/18 Problem Details: Renitiated magnesium oxide therapy especially in light of patient's occasional constipation and refractory arrhythmia on admission. Continue close follow-up by his regular providers at discharge. (7) Apnea, sleep SNOMED Code(s): 88530158 ICD Code: G47.30 - SLEEP APNEA, UNSPECIFIED Status: Chronic Priority: Medium Current Visit: Yes Problem Details: Patient just restarted his CPAP again with strict compliance with this therapy strongly encouraged especially in light of recent secondary CVA as above. Compliance with this therapy has been an issue in the past. Weight loss strongly encouraged as above. Note recent sleep study on 11/07/18 for CPAP titration. Note significant restless leg syndrome with low-dose Mirapex restarted during this hospitalization. Qualifiers: Sleep apnea type: obstructive Qualified Code(s): G47.33 - Obstructive sleep apnea (adult) (pediatric) (8) Diabetes mellitus SNOMED Code(s): 68680948 ICD Code: E11.9 - TYPE 2 DIABETES MELLITUS WITHOUT COMPLICATIONS Status: Chronic Priority: Medium Current Visit: Yes Problem Details: Patient does not take Accu-Cheks at home. Glycosylated hemoglobin 6.9% on 02/01. Restarted metformin, which will also be beneficial for his weight loss, on 02/01. Note history of diabetic nephropathy and neuropathy. Continued dietary changes encouraged as above. Note patient had been taking his prednisone therapy incorrectly with this to be quickly tapered. Prednisone was apparently prescribed for his chronic foot pain/diabetic neuropathy? with no history of gout attack. Qualifiers: Diabetes mellitus type: type 2 Diabetes mellitus [facility] insulin use: without [facility] use Diabetes mellitus complication status: with kidney complications Diabetes mellitus complication detail: with chronic kidney disease Chronic kidney disease stage: stage 2 (mild) Qualified Code(s): E11.22 - Type 2 diabetes mellitus with diabetic chronic kidney disease; N18.2 - Chronic kidney disease, stage 2 (mild) (9) Osteoarthritis SNOMED Code(s): 323235990 ICD Code: M19.90 - UNSPECIFIED OSTEOARTHRITIS, UNSPECIFIED SITE Status: Chronic Priority: Medium Current Visit: Yes Problem Details: Uric acid variable, although stable from previous evaluations despite mild persistent elevation on admission. IV Lasix therapy with caution with no current gout-type symptoms. Colchicine used with caution during this hospitalization with allopurinol also initiated on 02/02. Overall stable chronic left ankle and bilateral foot pain with ambulation with his osteoarthritis otherwise being stable by patient history. Qualifiers: Osteoarthritis location: multiple joints Osteoarthritis type: primary Qualified Code(s): M15.0 - Primary generalized (osteo)arthritis (10) Renal insufficiency SNOMED Code(s): 788427116, 707777299 ICD Code: N28.9 - DISORDER OF KIDNEY AND URETER, UNSPECIFIED Status: Chronic Priority: Medium Current Visit: Yes Problem Details: Stable during this hospitalization. Lisinopril reinitiated as above. (11) Hypoalbuminemia SNOMED Code(s): 532285069 ICD Code: E88.09 - OTH DISORDERS OF PLASMA-PROTEIN METABOLISM, NEC Status: Chronic Priority: Medium Current Visit: Yes Problem Details: Observe for now. Consider high-protein Glucerna supplements, however weight loss advisable at this time. (12) PVCs (premature ventricular contractions) SNOMED Code(s): 85595587 ICD Code: I49.3 - VENTRICULAR PREMATURE DEPOLARIZATION Status: Acute Priority: High Current Visit: Yes Onset Date: ~01/31/19 Problem Details: Improved with beta johnny therapy during this hospitalization. Continue close observation by his regular providers. Consider event monitor secondary to recurrent/refractory atrial fibrillation/flutter, etc. as above. - Patient Summary/Data Operative Procedure(s) Performed: None Complications: None Consults: None Labs Pending at D/C: None Recommended Follow-up Testing/Procedures: As per discharge instructions Planned Operative Procedure(s) after DC: None Hospital Course: Patient was admitted to inpatient/acute care on telemetry with multiple medication adjustments required during this hospitalization as above. No chest pain or anginal type symptoms throughout this hospitalization with negative workup for acute MA as above. His neurological status also remained stable throughout this hospitalization with no evidence of return CVA. Close follow-up by his regular provider secondary to refractory recurrent atrial fibrillation/ flutter and multiple medication changes. No complications during this hospitalization. - Patient Instructions Diet: Fluid Restriction Diet, Other: 1500-calorie ADA, heart healthy Fluid Restriction: 2000 mL Activity: As Tolerated Activity, Other: Continued walker use, fall precautions, etc. as before Driving: May Drive Today Showering/Bathing: May Shower Notify Provider of: Fever, Increased Pain, Nausea and/or Vomiting Other/Special Instructions: 1. Followup with your regular provider in 5-7 days as directed for reevaluation and recommended CBC, comprehensive metabolic panel , CK, CK-MB, magnesium level, uric acid level, and BNP. Bring these discharge instructions with you to that visit. 2. Continue PT/OT on an outpatient basis. 3. Strict no use of any NSAIDs, including ibuprofen, Aleve, previous Voltaren, aspirin, etc. as discussed. 4. Strict use of your CPAP as discussed. 5. Recommend beginning home blood sugar evaluations on a 2 times per day basis before meals with records to be brought to all follow-up appointments with your regular providers. Discuss this further at the time of the above follow-up. 6. Repeat glycosylated in hemoglobin level in 3 months. 7. Continue weight loss in moderation program. 8. Decrease/avoid caffeine intake as discussed. 9. Taper your prednisone therapy, i.e., one half tablet of your current dose on an every morning basis until all tablets are gone. 10. Immediately after this visit verify that your cellular telephone's voicemail has been activated and is empty. Also verify that your home telephone's answering machine is operating properly and has space to receive messages. Note that it is sometimes necessary for us to be able to contact you at a later date to discuss your medical care. 11. Please remember that we are ALWAYS here for you and want to answer any questions you may have. Feel free to call the hospital any time and we call you back [facility]. - Discharge Plan *PRESCRIPTION DRUG MONITORING PROGRAM REVIEWED*: Not Applicable *COPY OF PRESCRIPTION DRUG MONITORING REPORT IN PATIENT SAMMI: Not Applicable Prescriptions/Med Rec: Lisinopril 5 mg PO QPM #14 tablet Home Medications: Home Meds Apixaban [Eliquis] 5 mg PO BID@0900,2100 12/13/17 [History] Pregabalin [Lyrica] 75 mg PO BID 01/08/18 [History] Colchicine [Colcrys] 0.6 mg PO DAILY PRN 11/29/18 [History] Nitroglycerin 0.4 mg SL ASDIRECTED PRN 11/30/18 [History] Acetaminophen [Tylenol] 650 mg PO Q4H PRN tablet 12/01/18 [Rx] Digoxin 125 mcg PO DAILY 01/31/19 [History] Furosemide 40 mg PO DAILY 01/31/19 [History] atorvaSTATin Calcium [Atorvastatin Calcium] 80 mg PO BEDTIME 01/31/19 [History] Acetaminophen [Tylenol] 650 mg PO Q4H PRN tablet 02/03/19 [Rx] Allopurinol [Zyloprim] 100 mg PO DAILY #30 tablet 02/03/19 [Rx] Diltiazem [Cardizem CD] 120 mg PO DAILY #30 cap.cd 02/03/19 [Rx] Lisinopril 5 mg PO QPM #14 tablet 02/03/19 [Rx] Magnesium Oxide 400 mg PO QPM #30 tablet 02/03/19 [Rx] Metoprolol Succinate [Toprol XL 50mg] 50 mg PO BID #60 tab.er 02/03/19 [Rx] Pramipexole [Mirapex] 0.5 mg PO BEDTIME #30 tablet 02/03/19 [Rx] metFORMIN [Glucophage] 500 mg PO BIDMEALS #60 tablet 02/03/19 [Rx] predniSONE 5 mg PO DAILY tablet 02/03/19 [Rx] Oxygen Therapy Mode: Room Air Patient Handouts: Diltiazem extended-release capsules or tablets, Metoprolol extended-release tablets, Metformin extended-release tablets, Pramipexole tablets, Lisinopril tablets, Heart-Healthy Eating Plan, Digoxin tablets or capsules, Atrial Fibrillation, [id number] Forms: ED Department Discharge Referrals: Trisha Kellogg, CAR RUNNER [Primary Care Provider] - - Discharge Summary/Plan Comment DC Time >30 min.: Yes (Coordination of care ) Discharge Summary/Plan Comment: As above. Extensive precautions were given to the patient, who is in agreement with the treatment plan. See Patient Instructions for further treatment and plan. - General Info Date of Service: 02/03/19 Admission Dx/Problem (Free Text: 1. Atrial fibrillation with rapid ventricular response 2. CHF 3. Coronary artery disease 4. Diabetes mellitus Functional Status: Reports: Pain Controlled, Tolerating Diet, Ambulating, Urinating, Incentive Spirometry. Denies: New Symptoms Numeric/FACES Score: 8 (Left ankle and bilateral feet pain with ambulation only) - Review of Systems General: Reports: No Symptoms. Denies: Fever, Weakness, Fatigue, Malaise, Chills, Night Sweats, Appetite HEENT: Reports: No Symptoms. Denies: Dysphasia, Ear Pain, Eye Pain, Headaches, Post Nasal Drip, Sinus Congestion, Sore Throat, Rhinitis, Visual Changes Pulmonary: Reports: No Symptoms. Denies: Shortness of Breath, Pleuritic Chest Pain, Cough, Sputum, Hemoptysis, Wheezing Cardiovascular: Reports: Edema (Stable dependent). Denies: Chest Pain, Palpitations, Orthopnea, PND, Lightheadedness Gastrointestinal: Reports: No Symptoms, Other (Normal bowel movement yesterday evening). Denies: Abdominal Pain, Constipation, Decreased Appetite, Diarrhea, Difficulty Swallowing, Flatus, Hematochezia, Melena, Nausea, Vomiting Genitourinary: Reports: No Symptoms. Denies: Dysuria, Frequency, Burning, Pain , Urgency, Incontinence, Hematuria, Retention, Flank Pain Musculoskeletal: Reports: Foot Pain, Joint Pain (Left ankle). Denies: Neck Pain , Shoulder Pain, Arm Pain, Hand Pain, Back Pain, Leg Pain, Joint Swelling Skin: Reports: Rash (Stable venous stasis dermatitis). Denies: Diaphoresis, Bruising Neurological: Reports: Confusion (Borderline), Pre-Existing Deficit (Stable dysarthria and dystaxia), Difficulty Walking (Secondary to foot pain). Denies: Headache, Numbness, Paresthesia, Tingling, Weakness, Change in Speech, Gait Disturbance Psychiatric: Reports: Confusion (As above), Depression (Mild), Anxiety (Mild). Denies: Agitation, Cravings, Hallucinations - Patient Data Vitals - Most Recent: Last Vital Signs Temp 36.6 C 02/03/19 07:48 Pulse 80 02/03/19 07:59 Resp 18 02/03/19 07:48 BP 108/75 02/03/19 07:57 Pulse Ox 95 02/03/19 07:48 Vital Signs - 24 hr 02/02/19 02/02/19 02/02/19 11:24 16:00 17:44 Temperature [ 36.4 C 36.5 C Oral] Pulse, Peripheral Pulse, Peripheral [ Left Pulse Oximetry] Pulse, 78 Peripheral [ Right Pulse Oximetry] Pulse, 60 Peripheral [ Right Radial] Respiratory 18 12 Rate Blood Pressure 125/87 Blood Pressure 118/73 125/87 [Left Upper Arm ] O2 Sat by Pulse 100 99 Oximetry 02/02/19 02/02/19 02/02/19 17:45 19:34 23:34 Temperature [ 36.3 C 36.5 C Oral] Pulse, 78 Peripheral Pulse, Peripheral [ Left Pulse Oximetry] Pulse, 70 80 Peripheral [ Right Pulse Oximetry] Pulse, Peripheral [ Right Radial] Respiratory 14 18 Rate Blood Pressure 125/87 Blood Pressure 107/72 111/75 [Left Upper Arm ] O2 Sat by Pulse 98 97 Oximetry 02/03/19 02/03/19 02/03/19 03:20 07:48 07:56 Temperature [ 36.7 C 36.6 C Oral] Pulse, 80 Peripheral Pulse, 72 Peripheral [ Left Pulse Oximetry] Pulse, Peripheral [ Right Pulse Oximetry] Pulse, 72 80 Peripheral [ Right Radial] Respiratory 14 18 Rate Blood Pressure 108/75 Blood Pressure 108/75 [Left Upper Arm ] O2 Sat by Pulse 98 95 Oximetry 02/03/19 02/03/19 07:57 07:59 Temperature [ Oral] Pulse, 80 80 Peripheral Pulse, Peripheral [ Left Pulse Oximetry] Pulse, Peripheral [ Right Pulse Oximetry] Pulse, Peripheral [ Right Radial] Respiratory Rate Blood Pressure 108/75 Blood Pressure [Left Upper Arm ] O2 Sat by Pulse Oximetry Weight - Most Recent: 136.441 kg I&O - Last 24 hours: Intake & Output 02/02/19 02/03/19 02/03/19 22:59 06:59 14:59 Intake Total 240 300 Output Total 500 Balance 240 -200 Imaging Impressions - Last 24 hrs: ekg monitor tech shows normal atrial fibrillation/flutter with resolution of previous rapid ventricular response, including with ambulation, with average heart rate in the 60s to 90s. No extrasystoles during the last 24 hours. Chest x-ray, portable, on 01/31/19 shows borderline cardiomegaly and prominence of the proximal aortic arch with borderline pulmonary obstructive disease, pulmonary hypertension, and/or mild centralized CHF. Note official x-ray report showed no significant abnormalities or changes since 12/04/18. Lab Results - Last 24 hrs: Laboratory Results - last 24 hr 02/03/19 02/03/19 Range/Units 07:20 07:20 WBC 8.4 (4.0-10.2) K/uL RBC 5.80 H (4.33-5.41) M/uL Hgb 16.3 (13.1-16.8) g/dL Hct 48.6 (39.0-49.0) % MCV 83.8 L (84.0-98.0) fL MCH 28.1 L (28.2-33.3) pg MCHC 33.5 (31.7-36.0) g/dL RDW 14.5 H (11.2-14.1) % Plt Count 250 (150-350) K/uL Neut % (Auto) 65.3 (45.0-80.0) % Lymph % (Auto) 24.2 (10.0-50.0) % [place] % (Auto) 8.0 (2.0-14.0) % Eos % (Auto) 1.9 (0.0-5.0) % Baso % (Auto) 0.6 (0.0-2.0) % Neut # (Auto) 5.47 (1.40-7.00) K/uL Lymph # (Auto) 2.03 (0.50-3.50) K/uL [place] # (Auto) 0.67 (0.00-1.00) K/uL Eos # (Auto) 0.16 (0.00-0.50) K/uL Baso # (Auto) 0.05 (0.00-0.20) K/uL Sodium 140 (136-145) mmol/L Potassium 4.0 (3.5-5.1) mmol/L Chloride 103 (98-107) mmol/L Carbon Dioxide 28.3 (21.0-32.0) mmol/L BUN 26 H (7-18) mg/dL Creatinine 0.93 (0.51-1.17) mg/dL Est Cr Clr Drug Dosing 98.21 mL/min Estimated GFR (MDRD) > 60 mL/min Glucose 157 H (74-106) mg/dL Calcium 9.4 (8.5-10.1) mg/dL NT-Pro-B Natriuret Pep 328 H (0-125) pg/mL Laboratory Tests 01/31/19 01/31/19 01/31/19 Range/Units 15:25 15:25 15:25 WBC 8.6 (4.0-10.2) K/uL RBC 5.64 H (4.33-5.41) M/uL Hgb 15.8 D (13.1-16.8) g/dL Hct 47.1 (39.0-49.0) % MCV 83.5 L (84.0-98.0) fL MCH 28.0 L (28.2-33.3) pg MCHC 33.5 (31.7-36.0) g/dL RDW 14.7 H (11.2-14.1) % Plt Count 258 (150-350) K/uL Neut % (Auto) 80.8 H (45.0-80.0) % Lymph % (Auto) 11.2 (10.0-50.0) % [place] % (Auto) 7.7 (2.0-14.0) % Eos % (Auto) 0.1 (0.0-5.0) % Baso % (Auto) 0.2 (0.0-2.0) % Neut # (Auto) 6.94 (1.40-7.00) K/uL Lymph # (Auto) 0.96 (0.50-3.50) K/uL [place] # (Auto) 0.66 (0.00-1.00) K/uL Eos # (Auto) 0.01 (0.00-0.50) K/uL Baso # (Auto) 0.02 (0.00-0.20) K/uL PT 16.2 H D (9.5-12.0) SEC INR 1.5 APTT 29.6 (21.0-31.3) SEC Sodium 141 (136-145) mmol/L Potassium 3.8 (3.5-5.1) mmol/L Chloride 105 (98-107) mmol/L Carbon Dioxide 23.9 (21.0-32.0) mmol/L BUN 25 H (7-18) mg/dL Creatinine 1.15 (0.51-1.17) mg/dL Est Cr Clr Drug Dosing TNP Estimated GFR (MDRD) > 60 mL/min Glucose 258 H (74-106) mg/dL Hemoglobin A1c (4.3-5.7) % Lactic Acid (0.4-2.0) mmol/L Uric Acid 9.2 H (2.6-7.2) mg/dL Calcium 9.1 (8.5-10.1) mg/dL Magnesium 1.6 L (1.8-2.4) mg/dL Total Bilirubin 0.6 (0.2-1.0) mg/dL AST 20 (15-37) U/L ALT 78 (12-78) U/L Alkaline Phosphatase 119 H (46-116) IU/L Creatine Kinase 36 (26-308) U/L Creatine Kinase Index 4.2 H (0.0-2.5) % CK-MB (CK-2) 1.50 (0.00-3.60) ng/mL Troponin I 0.031 (0.000-0.056) ng/mL NT-Pro-B Natriuret Pep 979 H (0-125) pg/mL Total Protein 7.4 (6.4-8.2) g/dL Albumin 3.3 L (3.4-5.0) g/dL Triglycerides (30-150) mg/dL Cholesterol (100-200) mg/dL LDL Cholesterol, Calc (0-100) mg/dL HDL Cholesterol (40-60) mg/dL TSH, Ultra Sensitive 1.214 (0.358-3.740) mIU/mL Digoxin 0.52 L (0.90-2.00) ng/mL Ethyl Alcohol 0.000 (0.000-0.080) g/dL 11/27/19 11/27/19 11/28/19 Range/Units 15:25 20:44 07:06 WBC 7.4 (4.0-10.2) K/uL RBC 5.81 H (4.33-5.41) M/uL Hgb 16.2 (13.1-16.8) g/dL Hct 48.5 (39.0-49.0) % MCV 83.5 L (84.0-98.0) fL MCH 27.9 L (28.2-33.3) pg MCHC 33.4 (31.7-36.0) g/dL RDW 14.6 H (11.2-14.1) % Plt Count 220 (150-350) K/uL Neut % (Auto) 53.1 (45.0-80.0) % Lymph % (Auto) 37.2 (10.0-50.0) % [place] % (Auto) 8.0 (2.0-14.0) % Eos % (Auto) 1.2 (0.0-5.0) % Baso % (Auto) 0.5 (0.0-2.0) % Neut # (Auto) 3.93 (1.40-7.00) K/uL Lymph # (Auto) 2.75 (0.50-3.50) K/uL [place] # (Auto) 0.59 (0.00-1.00) K/uL Eos # (Auto) 0.09 (0.00-0.50) K/uL Baso # (Auto) 0.04 (0.00-0.20) K/uL PT (9.5-12.0) SEC INR APTT (21.0-31.3) SEC Sodium (136-145) mmol/L Potassium (3.5-5.1) mmol/L Chloride (98-107) mmol/L Carbon Dioxide (21.0-32.0) mmol/L BUN (7-18) mg/dL Creatinine (0.51-1.17) mg/dL Est Cr Clr Drug Dosing Estimated GFR (MDRD) mL/min Glucose (74-106) mg/dL Hemoglobin A1c (4.3-5.7) % Lactic Acid 1.9 (0.4-2.0) mmol/L Uric Acid (2.6-7.2) mg/dL Calcium (8.5-10.1) mg/dL Magnesium (1.8-2.4) mg/dL Total Bilirubin (0.2-1.0) mg/dL AST (15-37) U/L ALT (12-78) U/L Alkaline Phosphatase (46-116) IU/L Creatine Kinase 37 (26-308) U/L Creatine Kinase Index 4.1 H (0.0-2.5) % CK-MB (CK-2) 1.50 (0.00-3.60) ng/mL Troponin I 0.024 (0.000-0.056) ng/mL NT-Pro-B Natriuret Pep (0-125) pg/mL Total Protein (6.4-8.2) g/dL Albumin (3.4-5.0) g/dL Triglycerides (30-150) mg/dL Cholesterol (100-200) mg/dL LDL Cholesterol, Calc (0-100) mg/dL HDL Cholesterol (40-60) mg/dL TSH, Ultra Sensitive (0.358-3.740) mIU/mL Digoxin (0.90-2.00) ng/mL Ethyl Alcohol (0.000-0.080) g/dL 02/01/19 02/01/19 02/02/19 Range/Units 07:06 07:06 06:53 WBC 7.8 (4.0-10.2) K/uL RBC 5.89 H (4.33-5.41) M/uL Hgb 16.6 (13.1-16.8) g/dL Hct 49.1 H (39.0-49.0) % MCV 83.4 L (84.0-98.0) fL MCH 28.2 (28.2-33.3) pg MCHC 33.8 (31.7-36.0) g/dL RDW 14.4 H (11.2-14.1) % Plt Count 228 (150-350) K/uL Neut % (Auto) 63.6 (45.0-80.0) % Lymph % (Auto) 26.0 (10.0-50.0) % [place] % (Auto) 8.1 (2.0-14.0) % Eos % (Auto) 1.7 (0.0-5.0) % Baso % (Auto) 0.6 (0.0-2.0) % Neut # (Auto) 4.94 (1.40-7.00) K/uL Lymph # (Auto) 2.02 (0.50-3.50) K/uL [place] # (Auto) 0.63 (0.00-1.00) K/uL Eos # (Auto) 0.13 (0.00-0.50) K/uL Baso # (Auto) 0.05 (0.00-0.20) K/uL PT (9.5-12.0) SEC INR APTT (21.0-31.3) SEC Sodium 144 (136-145) mmol/L Potassium 3.5 (3.5-5.1) mmol/L Chloride 103 (98-107) mmol/L Carbon Dioxide 28.7 (21.0-32.0) mmol/L BUN 24 H (7-18) mg/dL Creatinine 1.01 (0.51-1.17) mg/dL Est Cr Clr Drug Dosing 90.43 Estimated GFR (MDRD) > 60 mL/min Glucose 163 H (74-106) mg/dL Hemoglobin A1c 6.9 H (4.3-5.7) % Lactic Acid (0.4-2.0) mmol/L Uric Acid (2.6-7.2) mg/dL Calcium 9.2 (8.5-10.1) mg/dL Magnesium (1.8-2.4) mg/dL Total Bilirubin 0.7 (0.2-1.0) mg/dL AST 24 (15-37) U/L ALT 74 (12-78) U/L Alkaline Phosphatase 115 (46-116) IU/L Creatine Kinase 29 (26-308) U/L Creatine Kinase Index 5.5 H (0.0-2.5) % CK-MB (CK-2) 1.60 (0.00-3.60) ng/mL Troponin I 0.031 (0.000-0.056) ng/mL NT-Pro-B Natriuret Pep 986 H (0-125) pg/mL Total Protein 7.3 (6.4-8.2) g/dL Albumin 3.3 L (3.4-5.0) g/dL Triglycerides 104 (30-150) mg/dL Cholesterol 115 (100-200) mg/dL LDL Cholesterol, Calc 65 (0-100) mg/dL HDL Cholesterol 29 L (40-60) mg/dL TSH, Ultra Sensitive (0.358-3.740) mIU/mL Digoxin (0.90-2.00) ng/mL Ethyl Alcohol (0.000-0.080) g/dL 02/02/19 02/03/19 02/03/19 Range/Units 06:53 07:20 07:20 WBC 8.4 (4.0-10.2) K/uL RBC 5.80 H (4.33-5.41) M/uL Hgb 16.3 (13.1-16.8) g/dL Hct 48.6 (39.0-49.0) % MCV 83.8 L (84.0-98.0) fL MCH 28.1 L (28.2-33.3) pg MCHC 33.5 (31.7-36.0) g/dL RDW 14.5 H (11.2-14.1) % Plt Count 250 (150-350) K/uL Neut % (Auto) 65.3 (45.0-80.0) % Lymph % (Auto) 24.2 (10.0-50.0) % [place] % (Auto) 8.0 (2.0-14.0) % Eos % (Auto) 1.9 (0.0-5.0) % Baso % (Auto) 0.6 (0.0-2.0) % Neut # (Auto) 5.47 (1.40-7.00) K/uL Lymph # (Auto) 2.03 (0.50-3.50) K/uL [place] # (Auto) 0.67 (0.00-1.00) K/uL Eos # (Auto) 0.16 (0.00-0.50) K/uL Baso # (Auto) 0.05 (0.00-0.20) K/uL PT (9.5-12.0) SEC INR APTT (21.0-31.3) SEC Sodium 141 140 (136-145) mmol/L Potassium 3.7 4.0 (3.5-5.1) mmol/L Chloride 102 103 (98-107) mmol/L Carbon Dioxide 29.8 28.3 (21.0-32.0) mmol/L BUN 26 H 26 H (7-18) mg/dL Creatinine 0.95 0.93 (0.51-1.17) mg/dL Est Cr Clr Drug Dosing 96.14 98.21 Estimated GFR (MDRD) > 60 > 60 mL/min Glucose 179 H 157 H (74-106) mg/dL Hemoglobin A1c (4.3-5.7) % Lactic Acid (0.4-2.0) mmol/L Uric Acid 10.2 H (2.6-7.2) mg/dL Calcium 9.4 9.4 (8.5-10.1) mg/dL Magnesium 1.8 (1.8-2.4) mg/dL Total Bilirubin (0.2-1.0) mg/dL AST (15-37) U/L ALT (12-78) U/L Alkaline Phosphatase (46-116) IU/L Creatine Kinase (26-308) U/L Creatine Kinase Index (0.0-2.5) % CK-MB (CK-2) (0.00-3.60) ng/mL Troponin I (0.000-0.056) ng/mL NT-Pro-B Natriuret Pep 405 H 328 H (0-125) pg/mL Total Protein (6.4-8.2) g/dL Albumin (3.4-5.0) g/dL Triglycerides (30-150) mg/dL Cholesterol (100-200) mg/dL LDL Cholesterol, Calc (0-100) mg/dL HDL Cholesterol (40-60) mg/dL TSH, Ultra Sensitive (0.358-3.740) mIU/mL Digoxin (0.90-2.00) ng/mL Ethyl Alcohol (0.000-0.080) g/dL HUANG Results - Last 24 hrs: None Med Orders - Current: Current Medications Acetaminophen (Tylenol) 650 mg PO Q4H PRN PRN Reason: Pain Last Admin: 02/01/19 13:15 Dose: 650 mg Allopurinol (Zyloprim) 100 mg PO DAILY MELONY Last Admin: 02/03/19 07:59 Dose: 100 mg Apixaban (Eliquis) 5 mg PO BID@0900,2100 [facility] Last Admin: 02/03/19 07:59 Dose: 5 mg Atorvastatin Calcium (Lipitor) 80 mg PO BEDTIME [facility] Last Admin: 02/02/19 20:52 Dose: 80 mg Colchicine (Colcrys) 0.6 mg PO DAILY PRN PRN Reason: gout flare Last Admin: 02/01/19 13:16 Dose: 0.6 mg Digoxin (Lanoxin) 125 mcg PO DAILY [facility] Last Admin: 02/03/19 07:59 Dose: 125 mcg Diltiazem HCl (Cardizem Cd) 120 mg PO DAILY [facility] Last Admin: 02/03/19 07:56 Dose: 120 mg Furosemide (Lasix) 40 mg IVPUSH DAILY [facility] Last Admin: 02/03/19 08:00 Dose: 40 mg Lisinopril (Prinivil) 5 mg PO QPM [facility] Last Admin: 02/02/19 17:44 Dose: 5 mg Magnesium Oxide (Magnesium Oxide) 400 mg PO QPM [facility] Last Admin: 02/02/19 17:44 Dose: 400 mg Metformin HCl (Glucophage) 500 mg PO BIDMEALS [facility] Last Admin: 02/03/19 07:56 Dose: 500 mg Metoprolol Succinate (Toprol Xl) 50 mg PO BID [facility] Last Admin: 02/03/19 07:57 Dose: 50 mg Potassium Chloride (Klor-Con M20) 20 meq PO DAILY [facility] Last Admin: 02/03/19 07:58 Dose: 20 meq Pramipexole Dihydrochloride (Mirapex) 0.5 mg PO BEDTIME [facility] Last Admin: 02/02/19 20:52 Dose: 0.5 mg Prednisone (Prednisone) 5 mg PO DAILY [facility] Last Admin: 02/03/19 07:58 Dose: 5 mg Pregabalin (Lyrica) 75 mg PO BID [facility] Last Admin: 02/03/19 07:58 Dose: 75 mg Sodium Chloride (Saline Flush) 10 ml FLUSH ASDIRECTED PRN PRN Reason: Keep Vein Open Last Admin: 02/02/19 05:10 Dose: 10 ml Sodium Chloride (Saline Flush) 10 ml FLUSH Q12HR PRN PRN Reason: Keep Vein Open Last Admin: 02/03/19 08:06 Dose: 10 ml Temazepam (Restoril) 15 mg PO BEDTIME PRN PRN Reason: Insomnia Discontinued Medications Diltiazem HCl (Diltiazem) 20 mg IVPUSH ONETIME ONE Stop: 01/31/19 15:25 Last Admin: 01/31/19 15:28 Dose: 10 mg Diltiazem HCl (Cardizem Cd) 180 mg PO DAILY [facility] Famotidine (Pepcid) 40 mg IVPUSH ONETIME ONE Stop: 01/31/19 15:24 Last Admin: 01/31/19 15:34 Dose: 40 mg Furosemide (Lasix) 40 mg IVPUSH Q12H [facility] Last Admin: 02/02/19 05:10 Dose: 40 mg Metoprolol Succinate (Toprol Xl) 25 mg PO QPM [facility] Last Admin: 01/31/19 18:23 Dose: 25 mg Metoprolol Succinate (Toprol Xl) 25 mg PO BID [facility] Last Admin: 02/02/19 08:11 Dose: 25 mg Metoprolol Succinate (Toprol Xl) 25 mg PO ONETIME ONE Stop: 02/02/19 08:49 Last Admin: 02/02/19 09:56 Dose: 25 mg Potassium Chloride (Klor-Con M20) 20 meq PO BID [facility] Last Admin: 02/02/19 08:10 Dose: 20 meq Prednisone (Prednisone) 10 mg PO DAILY [facility] - Exam Quality Assessment: Reports: DVT Prophylaxis (Eliquis). Denies: Supplemental Oxygen, Urine Catheter, Skin Breakdown, Restraints General: Reports: Alert, Oriented, Cooperative, No Acute Distress HEENT: Reports: Pupils Equal, Pupils Reactive, EOMI, Mucous Membr. Moist/[place]: Reports: Supple, Trachea Midline, No JVD, No Thyromegaly, +2 Carotid Pulse wo Bruit. Denies: Lymphadenopathy Lungs: Reports: Clear to Auscultation, Normal Respiratory Effort. Denies: Rhonchi, Rub, Wheezing Cardiovascular: Reports: Regular Rate, No Murmurs, Irregular Rhythm. Denies: Gallops, Rubs GI/Abdominal Exam: Normal Bowel Sounds, Soft, Non-Tender, No Organomegaly, No Distention, No Abnormal Bruit, No Mass, Other (Obese). No: Guarding (Male) Exam: Deferred Rectal (Males) Exam: Deferred Back Exam: Reports: Normal Inspection, Full Range of Motion. Denies: CVA Tenderness (L), CVA Tenderness (R), Muscle Spasm Extremities: Normal Range of Motion, Non-Tender (No ankle or foot pain by palpation), Pedal Edema (Stable trace bilateral pedal/pretibial edema with moderate venous stasis dermatitis [place] of the lower extremities). No: Tim's Sign Skin: Reports: Rash (Venous stasis dermatitis as above), Other (Stable 1 cm diameter grade 12 medial right toe decubitus with mild eschar formation and no evidence of acute infection). Denies: Ecchymosis Wound/Incisions: Reports: Healing Well Neurological: Reports: No New Focal Deficit, Other (Stable dysarthria, dystaxia , and borderline confusion) Psy/Mental Status: Reports: Alert, Anxious (Mild), Depressed (Mild). Denies: Agitated, Hallucinations, Withdrawal Symptoms
== END 2019-02-03 11:15 | disposition home or self-care (01) | DRG 201 ==
LOC: LL.ED 15:00 → LL.MS 16:46 → UNDOADMIN 16:46 → LL.MS 17:21
PROVIDERS: ADMIT Family Medicine; ATTEND Family Medicine
DX: I48.3 Typical atrial flutter (principal); I48.91 Unspecified atrial fibrillation; H54.7 Unspecified visual loss; I42.9 Cardiomyopathy, unspecified; E78.00 Pure hypercholesterolemia, unspecified; I73.9 Peripheral vascular disease, unspecified; N18.9 Chronic kidney disease, unspecified; E83.42 Hypomagnesemia; E88.09 Other disorders of plasma-protein metabolism, not elsewhere classified; I13.0 Hypertensive heart and chronic kidney disease with heart failure and stage 1 through stage 4 chronic kidney disease, or unspecified chronic kidney disease; M10.9 Gout, unspecified; G89.29 Other chronic pain; M54.2 Cervicalgia; F41.9 Anxiety disorder, unspecified; F32.9 Major depressive disorder, single episode, unspecified; E66.9 Obesity, unspecified; E11.22 Type 2 diabetes mellitus with diabetic chronic kidney disease; I50.43 Acute on chronic combined systolic (congestive) and diastolic (congestive) heart failure; J43.1 Panlobular emphysema; I49.3 Ventricular premature depolarization; G47.33 Obstructive sleep apnea (adult) (pediatric); I25.10 Atherosclerotic heart disease of native coronary artery without angina pectoris; M15.0 Primary generalized (osteo)arthritis; I25.2 Old myocardial infarction; Z86.010 Personal history of colon polyps; Z95.5 Presence of coronary angioplasty implant and graft; Z98.49 Cataract extraction status, unspecified eye; Z95.1 Presence of aortocoronary bypass graft; Z90.49 Acquired absence of other specified parts of digestive tract; Z79.899 Other long term (current) drug therapy; Z79.52 Long term (current) use of systemic steroids; Z87.442 Personal history of urinary calculi; Z86.73 Personal history of transient ischemic attack (TIA), and cerebral infarction without residual deficits; Z98.1 Arthrodesis status
CPT/HCPCS: 36415; 71045; 80048; 80053; 80061; 80162; 82550; 82553; 83036; 83605; 83735; 83880; 84443; 84484; 84550; 85025; 85610; 85730; 93005; 96374; 96375; 99285-25; A9270-GY; G0480; J1940; J3490

== ENCOUNTER 2019-02-16 10:13 | Emergency (ER) | payer BC ==
--- NOTE | 2019-02-16 10:28 | EDM.PDOC ---
ED HPI GENERAL MEDICAL PROBLEM - General Chief Complaint: Cardiovascular Problem Stated Complaint: A-fib Time Seen by Provider: 02/16/19 10:20 Source of Information: Reports: Patient, Old Records ([facility] chart/EMR) History Limitations: Reports: No Limitations - History of Present Illness INITIAL COMMENTS - FREE TEXT/NARRATIVE: The patient drove himself to the [facility] for evaluation by his regular provider. Note that this is a follow-up visit after hospitalization in this facility for atrial fibrillation with rapid ventricular response from through 02/03/19. The patient was briefly evaluated by Denys Fong NP at the [facility], who referred the patient to the emergency room for further treatment and evaluation. Note EKG was conducted, however no other blood work was performed to this point. The patient denies any chest pain/ pressure, heart flutter, dizziness, orthostasis, orthopnea, diaphoresis, paresthesias, recent decreased exercise tolerance, or any other anginal-type symptoms. No recent history of abdominal pain, heartburn, nausea, diarrhea, melena, gross hematochezia, or any food intolerance, including fatty foods, etc.. The patient also denies any recent fever, cough, wheezing, dyspnea, etc., although he was apparently prescribed a Z-Grover yesterday for a mild sinus infection. He denies any recent foot pain, although he has reinitiated indomethacin therapy contrary to her previous instructions. No other pain or discomfort at this time. Onset: Gradual Onset Date: 01/31/19 Duration: Intermittent Location: Reports: Other (No pain as above) Improves with: Reports: None Worsens with: Reports: None Context: Reports: Other (As above). Denies: Sick Contact, Trauma Associated Symptoms: Denies: Confusion, Chest Pain, Cough, Diaphoresis, Fever/ Chills, Headaches, Malaise, Nausea/Vomiting, Shortness of Breath, Syncope, Weakness Treatments THIRD MILLER: Reports: Other Medication(s) (Although he did not take his Lasix this morning) - Related Data Allergies Allergy/AdvReac Type Severity Reaction Status Date / Time No Known Allergies Allergy Verified 02/16/19 10:20 Home Meds: Home Meds Apixaban [Eliquis] 5 mg PO BID@0900,2100 12/13/17 [History] Colchicine [Colcrys] 0.6 mg PO DAILY PRN 11/29/18 [History] Nitroglycerin 0.4 mg SL ASDIRECTED PRN 11/30/18 [History] Acetaminophen [Tylenol] 650 mg PO Q4H PRN tablet 12/01/18 [Rx] Furosemide 40 mg PO DAILY 01/31/19 [History] atorvaSTATin Calcium [Atorvastatin Calcium] 80 mg PO BEDTIME 01/31/19 [History] Allopurinol [Zyloprim] 100 mg PO DAILY #30 tablet 02/03/19 [Rx] Diltiazem [Cardizem CD] 120 mg PO DAILY #30 cap.cd 02/03/19 [Rx] Lisinopril 5 mg PO QPM #14 tablet 02/03/19 [Rx] Magnesium Oxide 400 mg PO QPM #30 tablet 02/03/19 [Rx] Pramipexole [Mirapex] 0.5 mg PO BEDTIME #30 tablet 02/03/19 [Rx] metFORMIN [Glucophage] 500 mg PO BIDMEALS #60 tablet 02/03/19 [Rx] Metoprolol Succinate [Toprol XL 100mg] 100 mg PO BEDTIME #30 tab.er 02/16/19 [Rx ] Metoprolol Succinate [Toprol XL 50mg] 50 mg PO DAILY #60 tab.er 02/16/19 [Rx] Pregabalin [Lyrica] 75 mg PO TID #0 02/16/19 [Rx] Past Medical History HEENT History: Reports: Impaired Vision, Other (See Below). Denies: Allergic Rhinitis, Cataract, Glaucoma, Hard of Hearing, Macular Degeneration, Otitis Media, Retinal Detachment Other HEENT History: Patient wears reading glasses after previous LASIK surgery as below. Cardiovascular History: Reports: Afib, Arrhythmia, Blood Clots/VTE/DVT, CAD, Cardiomyopathy, Heart Failure, High Cholesterol, Hypertension, OH, PVD, Other ( See Below). Denies: Aneurysm, Bypass, Heart Murmur, PTCA, Stents, Syncope Other Cardiovascular History: Symptomatic moderate bradycardia likely secondary to medications at time of hospitalization in [place] in January 2019. Cardioversion for atrial flutter on 09/03/18 and 12/05/18. Non-STEMI on 12/13/17 with 90% stenosis of the second diagonal of the left coronary artery not amenable to PTCA/stent. Atrial flutter with rapid ventricular response in August 2018 requiring cardioversion as below. History of left leg DVT with secondary bilateral PE in about 2014 with current Eliquis therapy. Peripheral vascular disease of the legs bilaterally with surgery as below. Left atrial enlargement, concentric cardiomegaly, and mild aortic root dilatation by echocardiogram in 2009 as below. CHF with additional diastolic component. Small pericardial effusion by distant echocardiogram. Last Echocardiogram on 01/24/19 as below. Dyslipidemia. PVCs. Respiratory History: Reports: Bronchitis, Recurrent, COPD, Intubation, Previous , PE, Sleep Apnea. Denies: Asthma, Intubation, Difficult, Pneumothorax, Pulmonary Fibrosis, TB Other Respiratory History: Patient has now been compliant with his CPAP with previous problems with noncompliance in the past resulting in a right cerebellar CVA on 01/23/19. Multiple benign right upper lobe pulmonary nodules by CT scans as below, including 2 cm right upper lobe pulmonary nodule, including 2 cm right upper lobe pulmonary nodule on 01/23/19 with follow-up recommended in 3 months. Gastrointestinal History: Reports: Colon Polyp, Diverticulosis, Fatty Liver, Hemorrhoids, Other (See Below). Denies: Bowel Obstruction, Celiac Disease, Cholelithiasis, Chronic Constipation, Chronic Diarrhea, Fecal Incontinence, Gastritis, GERD, GI Bleed, Hepatitis, Hiatal Hernia, Inflammatory Bowel Disease , Irritable Bowel Syndrome, Jaundice, Pancreatitis Other Gastrointestinal History: LFTs elevation likely secondary to his fatty liver with hepatosplenomegaly by CT scan. Benign hyperplastic colonic polyp at 25 cm removed by colonoscopy in 2007 as below. Genitourinary History: Reports: BPH, Chronic Renal Insuffiency, Diabetic Nephropathy, Hydronephrosis, Renal Calculus, Other (See Below). Denies: STD, Urinary Incontinence, UTI, Recurrent Other Genitourinary History: History of recurrent urolithiasis with initial right-sided urolithiasis in 2003 and subsequent episodes in February 2018 with last episode on 01/08/18 with secondary right-sided hydronephrosis from a 1 cm distal stone requiring procedure as below. Benign left renal cyst. Musculoskeletal History: Reports: Arthritis, Back Pain, Chronic, Fracture, Gout , Neck Pain, Chronic, Osteoarthritis, Other (See Below). Denies: Amputation, RA , SLE Other Musculoskeletal History: Digit #5 fracture of the left hand as a teenager. Midshaft right radial and ulnar fracture at age 43. Neurological History: Reports: Concussion, CVA, Head Trauma, Neuropathy, Diabetic, Neuropathy, Peripheral, TIA, Other (See Below). Denies: Cerebral Aneurysms, Migraines, MS, Parkinson's, Seizure Other Neuro History: Acute right ischemic cerebellar CVA secondary to noncompliance with his CPAP on 01/23/19 with secondary remaining dysarthria and dystaxia and initial respiratory failure and metabolic encephalopathy. Restless leg syndrome. Head Concussions 2 at age 35 and 43. Questionable TIA in December 2017 with negative MRI. Psychiatric History: Reports: Anxiety, Depression. Denies: Abuse, Victim of, ADD, ADHD, Addiction, Alzheimers Disease, Dementia, Hallucinations, Psych Hospitalization(s), PTSD, Suicide Attempt, Suicidal Ideation Endocrine/Metabolic History: Reports: Diabetes, Type II, IDDM, Obesity/BMI 30+, Other (See Below). Denies: Diabetes, Type I, Diabetes Mellitus, Type 3c, Hypothyroidism, Osteopenia, Osteoporosis Other Endocrine/Metabolic History: History of AODM with previous occasional insulin use and current metformin use, however current dietary therapy. Hypomagnesemia. Hypoalbuminemia. Hematologic History: Reports: None. Denies: Anemia, B12 Deficiency, Blood Transfusion(s), Iron Deficiency Immunologic History: Reports: None. Denies: AIDS, HIV, SLE Oncologic (Cancer) History: Reports: None. Denies: Basal Cell Carcinoma, Colon , Hodgkin's Lymphoma, Leukemia, Lung, Lymphoma, Malignant Melanoma, Non-Hodgkin' s Lymphoma, Squamous Cell Carcinoma Dermatologic History: Reports: Venous Stasis Dermatitis. Denies: Eczema, Psoriasis - Infectious Disease History Infectious Disease History: Reports: Chicken Pox, Measles, Shingles. Denies: C- Difficile, Meningitis, Mononucleosis, MRSA, Mumps, Pertussis (Whooping Cough), Rheumatic Fever, Rubella, Scarlet Fever, TB, VRE - Past Surgical History Head Surgeries/Procedures: Reports: None HEENT Surgical History: Reports: LASIK, Oral Surgery. Denies: Adenoidectomy, Cataract Surgery, Eye Surgery, Laser Surgery, Myringotomy w Tube(s), Naso-Sinus Surgery, Tonsillectomy Other HEENT Surgeries/Procedures: [place] teeth extraction 4 at age 19. LASIK bilaterally in 1996. Cardiovascular Surgical History: Reports: Vascular Surgery, Other (See Below). Denies: Cardiac Ablation, Coronary Artery Bypass, Coronary Artery Stent, Pacer, Percutaneous Transluminal Angioplasty, Varicose Other Cardiovascular Surgeries/Procedures: Electrocardioversion for atrial flutter on 09/03/18. Left leg stent placement in 2013. Respiratory Surgical History: Reports: None. Denies: Thoracentesis GI Surgical History: Reports: Appendectomy, Colonoscopy, Hernia, Inguinal, Hernia Repair/Other, Polypectomy, Other (See Below). Denies: Cholecystectomy, EGD, Hernia, Abdominal Other GI Surgeries/Procedures: Appendectomy at age 11. Colonoscopy with concomitant umbilical hernia repair on 02/22/08 with previous bilateral inguinal hernia repairs. Male Surgical History: Reports: Kidney Stone Extraction, Renal Calculus, Other (See Below). Denies: Circumcision, TURP-Transurethral Resection of Prostate, Vasectomy Other Male Surgeries/Procedures: Right ureteral stent placement, cystoscopy, and stone extraction on 01/11/18. Endocrine Surgical History: Reports: None. Denies: Thyroid Biopsy Neurological Surgical History: Reports: Discectomy, Laminectomy, Lumbar Spine, Other (See Below). Denies: C-Spine, Sacral Spine, Spinal Fusion, Thoracic Spine Other Neurological Surgeries/Procedures: Laser laminectomy and discectomy in the lumbar region in 2011. Musculoskeletal Surgical History: Reports: None. Denies: Arthroscopic Procedure , Carpal Tunnel, Ganglion Cyst, Joint Replacement, ORIF, Shoulder Surgery Oncologic Surgical History: Reports: None Dermatological Surgical History: Reports: None - Past Imaging History Past Imaging History: Reports: Angiography (Positive Heart catheterization on .), Cardiac Echo (Last echocardiogram on 01/24/19 with ejection fraction of 5560 percent and findings as above. Previous echocardiogram on 11/21/18 with ejection fraction of 5560 percent. Trans-esophageal echocardiogram performed on 09/03/18 at time of cardioversion. Previous echocardiograms on 12/15/17 and .), CAT Scan (Negative CTA of the chest for PE on 09/22/18, 11/15/18, , 12/14/14 and 06/22/16. Negative CTA of the neck and head on 01/23/19. CT of the abdomen and pelvis on with positive findings as above. CT of the chest on 02/12/18.), MRI (Positive MRI of the brain on 01/23/19 for right cerebellar infarct. Previous MRI of the brain on 12/15/17 was negative. Lumbar spine on 07/11/11.), Sleep Study (Last sleep study including CPAP titration on 11/07.), Ultrasound (Renal ultrasound on 02/22/18, 01/09/18, 10/21/17 and 02/04/04.) , Venous Doppler (Bilateral 10/17/15 with left-sided study on 06/23/16.), Other ( See Below) (IVP on 02/04/04.) Social & Family History - Family History HEENT: Reports: Cataract, Other (See Below). Denies: Glaucoma, Macular Degeneration, Retinal Detachment Other HEENT Family History: Multiple paternal aunts and uncles with cataracts. Cardiac: Reports: Heart Murmur, Hypertension, Other (See Below). Denies: Afib, Aneurysm, Arrhythmia, Blood Clots/VTE/DVT, CAD, Cardiomyopathy, Heart Failure, High Cholesterol, OH, PVD/COD, Syncope Other Cardiac Family History: Paternal uncle with valvular disease secondary to rheumatic fever. Hypertension in parents. Respiratory: Reports: Sleep Apnea, Other (See Below). Denies: Asthma, COPD, PE , Pneumothorax Other Respiratory Family Hisory: Mother with sleep apnea. GI: Reports: Cholelithiasis, Other (See Below). Denies: Celiac Disease, Colon Polyps, GERD, Inflammatory Bowel Disease, Irritable Bowel Syndrome, PUD Other GI Family History: Father with cholelithiasis. : Reports: Renal Calculus, Other (See Below). Denies: Renal Disease/ Insufficiency Other Family History: Multiple paternal uncles with urolithiasis. OBGYN: Reports: None. Denies: Endometriosis, Recurrent Spontaneous Musculoskeletal: Reports: Arthritis, Gout, Osteoarthritis, Other (See Below). Denies: RA, SLE Other Musculoskeletal Family History: Father with gout and osteoarthritis. Neurological: Reports: CVA, Other (See Below). Denies: Alzheimers Disease, Dementia, Migraines, Neuropathy, Peripheral, Parkinson's, Seizure, TIA Other Neurological Family History: Maternal grandfather with CVA in his 70s. Psychiatric: Reports: None. Denies: Abuse, Victim of, ADD, ADHD, Anxiety, Depression, Psych Hospitalization(s), PTSD, Suicide Attempt Endocrine/Metabolic: Reports: Diabetes, type II, IDDM, Other (See Below). Denies: Diabetes, Type I, Diabetes Mellitus, Type 3c, Hypothyroidism Other Endocrine/Metabolic Family History: Mother and paternal uncle with IDDM. Hematologic: Reports: Other (See Below). Denies: SLE Other Hematologic Family History: Maternal uncle with unknown type of rare blood disease. Immunologic: Reports: None. Denies: AIDS, HIV, SLE Dermatologic: Reports: None. Denies: Eczema, Psoriasis Oncologic: Reports: Breast, Prostate, Other (See Below). Denies: Colon, Hodgkin 's Lymphoma, Leukemia, Lymphoma, Non-Hodgkin's Lymphoma, Skin Other Oncologic Family History: Mother with breast cancer at age 72. Paternal uncle with prostate cancer in his 80s. - Tobacco Use Smoking Status *Q: Never Smoker Tobacco Use Within Last Twelve Months: No Used Tobacco, but Quit: No Smoking Cessation Information Provided To Patient: No Second Hand Smoke Exposure: No Second Hand Smoke Education Provided: No - Caffeine Use Caffeine Use: Reports: Coffee (2 cups per week), Soda (1 soda per dayMountain Dew). Denies: Energy Drinks, Tea - Alcohol Use Alcohol Use History: Yes Days Per Week of Alcohol Use: 3 Number of Drinks Per Day: 2 Number of Drinks Per Day Comment: Occasional beer, wine, and mixed drinks. No previous DWIs, problems with alcohol abuse, etc. Total Drinks Per Week: 6 Alcohol Use in Last Twelve Months: Yes - Recreational Drug Use Recreational Drug Use: No Drug Use in Last 12 Months: No Recreational Drug Type: Denies: Amphetamines (Speed), Cocaine, Heroin, Inhalants (Glues, Solvents, Aerosols), LSD (Acid), Marijuana/Hashish, Methamphetamine, Morphine, Oxycodone - Living Situation & Occupation Living situation: Reports: (1981. 2 children), with Family () Occupation: Employed ([employer]) ED ROS GENERAL - Review of Systems Review Of Systems: Comprehensive ROS is negative, except as noted in HPI. ED EXAM, GENERAL - Physical Exam Exam: See Below Exam Limited By: No Limitations General Appearance: Alert, WD/WN, No Apparent Distress, Anxious (Mild) Eye Exam: Left Eye: EOMI, Normal Inspection (No nystagmus), PERRL Ears: Normal External Exam, Normal Canal, Hearing Grossly Normal, Normal TMs Nose: Normal Inspection, Normal Mucosa, No Blood Throat/Mouth: Normal Inspection, Normal Lips, Normal Teeth, Normal Gums, Normal Oropharynx, Normal Voice, No Airway Compromise. No: Dysphagia, Perioral Cyanosis Head: Atraumatic, Normocephalic. No: Facial Swelling, Facial Tenderness, Sinus Tenderness Neck: Normal Inspection, Supple, Non-Tender, Full Range of Motion. No: Carotid Bruit, Lymphadenopathy (L), Lymphadenopathy (R), Thyromegaly Respiratory/Chest: No Respiratory Distress, Lungs Clear, Normal Breath Sounds, No Accessory Muscle Use, Chest Non-Tender. No: Pleural Rub, Retractions Cardiovascular: Normal Peripheral Pulses, No Edema, No Gallop, No JVD, No Murmur , No Rub, Tachycardia, Irregularly Irregular. No: Gallop/S3, Gallop/S4, Friction Rub Peripheral Pulses: 2+: Radial (L), Radial (R), Dorsalis Pedis (L), Dorsalis Pedis (R) GI/Abdominal: Normal Bowel Sounds, Soft, Non-Tender, No Organomegaly, No Distention, No Abnormal Bruit, No Mass, Other (Obese). No: Guarding (Male) Exam: Deferred Rectal (Males) Exam: Deferred Back Exam: Normal Inspection, Full Range of Motion. No: CVA Tenderness (L), CVA Tenderness (R), Muscle Spasm Extremities: Normal Range of Motion, Non-Tender, No Pedal Edema, Normal Capillary Refill, Other (Moderate venous stasis dermatitis of the lower extremities bilaterally). No: Tim's Sign Neurological: Alert, Oriented, CN II-XII Intact, Normal Cognition, Normal Gait, No Motor/Sensory Deficits Psychiatric: Anxious (Mild), Depressed Mood (Mild) Skin Exam: Warm, Dry, Intact, Other (Venous dermatitis as above). No: Diaphoretic, Wound/Incision Lymphatic: No Adenopathy EKG INTERPRETATION EKG Date: 02/16/19 Time: 09:57 Rhythm: A-Fib Rate (Beats/Min): [address]: Normal (Left) P-Wave: Variable QRS: Normal (0.07 seconds) ST-T: Normal QT: Normal AL/PQ Interval: Variable with poor R-wave progression in the anterior leads. Comparison: Change From Previous EKG (Return tachycardia since last EKG on 02/01.) EKG Interpretation Comments: 1. No acute ischemic changes 2. Atrial fibrillation with mild rapid ventricular response Note: EKG actually initially ordered by TAMIKA Fong at the [facility] and reviewed by me today. Course - Vital Signs Last Recorded V/S: Last Vital Signs Temp 36.4 C 02/16/19 10:22 Pulse 100 02/16/19 11:30 Resp 17 02/16/19 11:30 BP 130/88 02/16/19 11:30 Pulse Ox 94 L 02/16/19 11:30 Vital Signs - 24 hr 02/16/19 02/16/19 02/16/19 10:22 10:33 10:45 Temperature [ 36.4 C Temporal] Pulse, Peripheral Pulse, 114 H 101 H 124 H Peripheral [ Apical] Respiratory 19 20 Rate Blood Pressure Blood Pressure 138/84 127/96 H 142/86 H [Right Upper Arm] O2 Sat by Pulse 94 L 94 L Oximetry 02/16/19 02/16/19 02/16/19 10:50 11:00 11:15 Temperature [ Temporal] Pulse, 100 Peripheral Pulse, 104 H 103 H Peripheral [ Apical] Respiratory 17 21 H Rate Blood Pressure 142/86 H Blood Pressure 134/77 119/96 H [Right Upper Arm] O2 Sat by Pulse 94 L 94 L Oximetry 02/16/19 02/16/19 11:22 11:30 Temperature [ Temporal] Pulse, 121 H Peripheral Pulse, 100 Peripheral [ Apical] Respiratory 17 Rate Blood Pressure 119/96 H Blood Pressure 130/88 [Right Upper Arm] O2 Sat by Pulse 94 L Oximetry - Orders/Labs/Meds Orders: Active Orders 24 hr Category Date Time Status Cardiac Monitoring [RC] . DIRECTED Care 02/16/19 10:28 Active Oxygen Therapy, ED [RC] PRN Care 02/16/19 10:28 Active Peripheral IV Care [RC] . DIRECTED Care 02/16/19 10:28 Active Pulse Oximetry [RC] CONTINUOUS Care 02/16/19 10:28 Active Up With Assistance [RC] PFP Care 02/16/19 10:28 Active Vital Signs [RC] PFP Care 02/16/19 10:28 Active Nothing per Oral Now Diet [DIET] Diet 02/16/19 Breakfast Active Chest 1V Frontal [CR] Stat Exams 02/16/19 11:13 Taken Sodium Chloride 0.9% [Saline Flush] Med 02/16/19 10:28 Active 10 ml FLUSH ASDIRECTED PRN Obtain Past Medical Record [OM.PC] Urgent Oth 02/16/19 10:28 Active Peripheral IV Insertion Adult [OM.PC] Stat Oth 02/16/19 10:28 Ordered Resuscitation Status Stat Resus Stat 02/16/19 10:28 Ordered Medication Orders Sodium Chloride (Saline Flush) 10 ml FLUSH ASDIRECTED PRN PRN Reason: Keep Vein Open Last Admin: 02/16/19 11:22 Dose: 10 ml Admin: 02/16/19 10:51 Dose: 10 ml Labs: Laboratory Tests 02/16/19 02/16/19 02/16/19 Range/Units 10:36 10:36 10:36 WBC 6.2 (4.0-10.2) K/uL RBC 4.68 (4.33-5.41) M/uL Hgb 13.4 (13.1-16.8) g/dL Hct 39.3 (39.0-49.0) % MCV 84.0 (84.0-98.0) fL MCH 28.6 (28.2-33.3) pg MCHC 34.1 (31.7-36.0) g/dL RDW 14.5 H (11.2-14.1) % Plt Count 158 (150-350) K/uL Neut % (Auto) 71.0 (45.0-80.0) % Lymph % (Auto) 18.6 (10.0-50.0) % Blanco % (Auto) 6.8 (2.0-14.0) % Eos % (Auto) 2.6 (0.0-5.0) % Baso % (Auto) 1.0 (0.0-2.0) % Neut # (Auto) 4.38 (1.40-7.00) K/uL Lymph # (Auto) 1.15 (0.50-3.50) K/uL [place] # (Auto) 0.42 (0.00-1.00) K/uL Eos # (Auto) 0.16 (0.00-0.50) K/uL Baso # (Auto) 0.06 (0.00-0.20) K/uL PT 12.5 H (9.5-12.0) SEC INR 1.2 APTT 27.9 (21.0-31.3) SEC Sodium 143 (136-145) mmol/L Potassium 4.0 (3.5-5.1) mmol/L Chloride 108 H (98-107) mmol/L Carbon Dioxide 24.3 (21.0-32.0) mmol/L BUN 25 H (7-18) mg/dL Creatinine 1.12 (0.51-1.17) mg/dL Est Cr Clr Drug Dosing 81.55 mL/min Estimated GFR (MDRD) > 60 mL/min Glucose 177 H (74-106) mg/dL Lactic Acid (0.4-2.0) mmol/L Uric Acid 9.0 H (2.6-7.2) mg/dL Calcium 9.0 (8.5-10.1) mg/dL Magnesium 1.6 L (1.8-2.4) mg/dL Total Bilirubin 0.7 (0.2-1.0) mg/dL AST 16 (15-37) U/L ALT 34 (12-78) U/L Alkaline Phosphatase 80 (46-116) IU/L Creatine Kinase 35 (26-308) U/L Creatine Kinase Index 4.3 H (0.0-2.5) % CK-MB (CK-2) 1.50 (0.00-3.60) ng/mL Troponin I 0.045 (0.000-0.056) ng/mL NT-Pro-B Natriuret Pep 4697 H (0-125) pg/mL Total Protein 6.6 (6.4-8.2) g/dL Albumin 3.2 L (3.4-5.0) g/dL TSH, Ultra Sensitive 1.477 (0.358-3.740) mIU/mL Digoxin (0.90-2.00) ng/mL 02/16/19 02/16/19 Range/Units 10:36 10:36 WBC (4.0-10.2) K/uL RBC (4.33-5.41) M/uL Hgb (13.1-16.8) g/dL Hct (39.0-49.0) % MCV (84.0-98.0) fL MCH (28.2-33.3) pg MCHC (31.7-36.0) g/dL RDW (11.2-14.1) % Plt Count (150-350) K/uL Neut % (Auto) (45.0-80.0) % Lymph % (Auto) (10.0-50.0) % Blanco % (Auto) (2.0-14.0) % Eos % (Auto) (0.0-5.0) % Baso % (Auto) (0.0-2.0) % Neut # (Auto) (1.40-7.00) K/uL Lymph # (Auto) (0.50-3.50) K/uL [place] # (Auto) (0.00-1.00) K/uL Eos # (Auto) (0.00-0.50) K/uL Baso # (Auto) (0.00-0.20) K/uL PT (9.5-12.0) SEC INR APTT (21.0-31.3) SEC Sodium (136-145) mmol/L Potassium (3.5-5.1) mmol/L Chloride (98-107) mmol/L Carbon Dioxide (21.0-32.0) mmol/L BUN (7-18) mg/dL Creatinine (0.51-1.17) mg/dL Est Cr Clr Drug Dosing mL/min Estimated GFR (MDRD) mL/min Glucose (74-106) mg/dL Lactic Acid 1.2 (0.4-2.0) mmol/L Uric Acid (2.6-7.2) mg/dL Calcium (8.5-10.1) mg/dL Magnesium (1.8-2.4) mg/dL Total Bilirubin (0.2-1.0) mg/dL AST (15-37) U/L ALT (12-78) U/L Alkaline Phosphatase (46-116) IU/L Creatine Kinase (26-308) U/L Creatine Kinase Index (0.0-2.5) % CK-MB (CK-2) (0.00-3.60) ng/mL Troponin I (0.000-0.056) ng/mL NT-Pro-B Natriuret Pep (0-125) pg/mL Total Protein (6.4-8.2) g/dL Albumin (3.4-5.0) g/dL TSH, Ultra Sensitive (0.358-3.740) mIU/mL Digoxin < 0.06 L (0.90-2.00) ng/mL Meds: Medications Generic Name Dose Route Start Last Admin Trade Name Freq PRN Reason Stop Dose Admin Sodium Chloride 10 ml 02/16/19 10:28 02/16/19 11:22 Saline Flush FLUSH 10 ml ASDIRECTED PRN Administration Keep Vein Open Discontinued Medications Generic Name Dose Route Start Last Admin Trade Name Freq PRN Reason Stop Dose Admin Metoprolol Tartrate 2.5 mg 02/16/19 10:42 02/16/19 10:50 Lopressor IVPUSH 02/16/19 10:43 2.5 mg ONETIME ONE Administration Metoprolol Tartrate 2.5 mg 02/16/19 11:12 02/16/19 11:22 Lopressor IVPUSH 02/16/19 11:13 2.5 mg ONETIME ONE Administration - Radiology Interpretation Free Text/Narrative:: Regulatory Affairs Analyst shows atrial fibrillation with occasional rapid ventricular response initially in the 110s to 130s with improvement to the 80s to 110s prior to discharge. No other extrasystoles including PVCs, etc. The patient was also ambulated in the hallway at the end of emergency room visit with heart rate in the 110s to 120s with ambulation. Chest X-ray, portable, shows moderate cardiomegaly with probable mild centralized CHF and/or pulmonary hypertension. Moderate COPD changes noted with no pulmonary infiltrates, pneumothorax, etc. Note final chest x-ray report does indicate stable right upper lobe nodularity similar to CT of the chest on with benign etiology favored secondary to stability since 12/23/14. Departure - Departure Time of Disposition: 12:40 Disposition: Home, Self-Care 01 Condition: Good Clinical Impression: Hypomagnesemia, Dyslipidemia, Renal insufficiency, Hypoalbuminemia, Mixed anxiety depressive disorder COPD (chronic obstructive pulmonary disease) Qualifiers: COPD type: emphysema Emphysema type: panlobular Qualified Code(s): J43.1 - Panlobular emphysema Coronary artery disease Qualifiers: Coronary Disease-Associated Artery/Lesion type: [place] artery [place] vs. transplanted heart: [place] heart Associated angina: without angina Qualified Code(s): I25.10 - Atherosclerotic heart disease of [place] coronary artery without angina pectoris Osteoarthritis Qualifiers: Osteoarthritis location: multiple joints Osteoarthritis type: primary Qualified Code(s): M15.0 - Primary generalized (osteo)arthritis Diabetes mellitus Qualifiers: Diabetes mellitus type: type 2 Diabetes mellitus assistant terminal manager insulin use: without assistant terminal manager use Diabetes mellitus complication status: with kidney complications Diabetes mellitus complication detail: with chronic kidney disease Chronic kidney disease stage: stage 2 (mild) Qualified Code(s): E11.22 - Type 2 diabetes mellitus with diabetic chronic kidney disease Hypertension Qualifiers: Hypertension type: essential hypertension Qualified Code(s): I10 - Essential ( primary) hypertension Atrial flutter Qualifiers: Atrial flutter type: typical Qualified Code(s): I48.3 - Typical atrial flutter Apnea, sleep Qualifiers: Sleep apnea type: obstructive Qualified Code(s): G47.33 - Obstructive sleep apnea (adult) (pediatric) Peripheral neuropathy Qualifiers: Peripheral neuropathy type: polyneuropathy associated with underlying disease Qualified Code(s): G63 - Polyneuropathy in diseases classified elsewhere CHF (congestive heart failure) Qualifiers: Heart failure type: combined systolic and diastolic Heart failure chronicity: acute on chronic Qualified Code(s): I50.43 - Acute on chronic combined systolic (congestive) and diastolic (congestive) heart failure Prescriptions: Metoprolol Succinate [Toprol XL 100mg] 100 mg PO BEDTIME #30 tab.er Referrals: Trisha Kellogg NP [Primary Care Provider] - Forms: ED Department Discharge Additional Instructions: 1. Followup with your regular provider in 3 days as directed, including an additional BNP, CK, CK-MB, troponin I, a basic metabolic panel, and a magnesium level. In addition, recommend telemetry with ambulation at that visit. Bring these discharge instructions with you to that visit. 2. Compliance with Tylenol as directed 3. Strict avoidance of all NSAIDs, including indomethacin, Aleve, ibuprofen, aspirin, etc. as previously discussed. 4. Use your colchicine with extreme discretion as discussed, i.e., only for severe gout attacks. 5. Discuss change in medical therapy today at the above follow-up visit, including mild increase of your Toprol-XL and additional increase of your Lyrica. 6. Discuss with your physical therapist possibility of shoe inserts, etc. 7. Strict compliance with home blood sugars on a 2 times per day basis, and, before breakfast and before supper, with records to be brought to each follow- up visit with your regular provider. 8. Continue weight loss and exercise in moderation. 9. Congratulations about using your CPAP 10. Decrease caffeine intake as discussed 11. Avoid all OTC cold preparations, allergy medicines, decongestants, etc. with exception of Coricidin HBP. 12. Strict compliance with all medications, including magnesium, etc. as discussed. Consider setting up a pill organizer. 13. Schedule previously recommended follow-up CT scan of the chest in 2 months with your regular provider secondary to previously diagnosed pulmonary nodules. Sepsis Event Note - Evaluation Sepsis Screening Result: No Definite Risk - Focused Exam Vital Signs: Vital Signs Temp Pulse Pulse Resp BP BP Pulse Ox 02/16/19 11:30 100 17 130/88 94 L 02/16/19 11:22 121 H 119/96 H 02/16/19 11:15 103 H 21 H 119/96 H 94 L 02/16/19 11:00 104 H 17 134/77 94 L 02/16/19 10:50 100 142/86 H 02/16/19 10:45 124 H 142/86 H 02/16/19 10:33 101 H 20 127/96 H 94 L 02/16/19 10:22 36.4 C 114 H 19 138/84 94 L Date Exam was Performed: 02/16/19 Time Exam was Performed: 15:15 - Problem List & Annotations (1) Atrial flutter SNOMED Code(s): 7162777 Code(s): I48.92 - UNSPECIFIED ATRIAL FLUTTER Status: Acute Priority: High Current Visit: No Onset Date: ~01/30/19 Annotation/Comment:: Significant improvement with increase of his beta johnny therapy with no tachycardia, extensive pauses, significant bradycardia, etc. including with ambulation during recent hospitalization with pulses in the 60s prior to discharge. Note the patient has been noncompliant with multiple medications as above/below and has likely not been taking his Lanoxin, which were initiated by the physicians in [place] at the time of his recent CVA. Previous history of mild diastolic dysfunction with digoxin therapy not to be reinitiated at this time secondary to this problem. Note persistent mild to moderate tachycardia with ambulation today, however the patient does not wish to be hospitalized. Multiple medication changes during this visit, including increase of his Toprol- XL, with close follow-up with his regular providers as per discharge instructions. Patient was advised to set up a pill organizer secondary to his apparent confusion with his medical therapy and in order to improve compliance. No chest pain or anginal type symptoms as below. Note apparent moderate bradycardia with previous Sotolol therapy with patient changed to digoxin prior to discharge from [place]. Diltiazem therapy will not be increased at this time secondary to patient's high-dose Lipitor. Toprol XL extended-release preparation was ordered secondary to occasional problems with noncompliance in the patient as above. Attempt to decrease and/or eliminate his caffeine intake. Further cardiology consultation depending on his clinical course. The patient has already had a recent echocardiogram. Secondary to his moderate cardiomegaly a repeat electrocardioversion will likely not be permanently effective. Consider cardiology consultation for cardiac ablation and pacemaker placement. Qualifiers: Atrial flutter type: typical Qualified Code(s): I48.3 - Typical atrial flutter (2) CHF (congestive heart failure) SNOMED Code(s): 51859293 Code(s): I50.9 - HEART FAILURE, UNSPECIFIED Status: Chronic Priority: High Current Visit: Yes Annotation/Comment:: Mild CHF by clinical exam and chest x-ray, however significantly elevated BNP. No chest pain or anginal complaints. Patient refuses hospitalization as above. Note recent echocardiogram. Qualifiers: Heart failure type: combined systolic and diastolic Heart failure chronicity: acute on chronic Qualified Code(s): I50.43 - Acute on chronic combined systolic (congestive) and diastolic (congestive) heart failure (3) Coronary artery disease SNOMED Code(s): 08156058 Code(s): I25.10 - ATHSCL HEART DISEASE OF [place] CORONARY ARTERY W/O ANG PCTRS Status: Chronic Priority: Medium Current Visit: No Annotation/ Comment:: Note mild change in troponin I, which is still normal, likely secondary to his CHF. Close follow-up by regular provider as per discharge instructions. Qualifiers: Coronary Disease-Associated Artery/Lesion type: [place] artery [place] vs. transplanted heart: [place] heart Associated angina: without angina Qualified Code(s): I25.10 - Atherosclerotic heart disease of [place] coronary artery without angina pectoris (4) Hypertension SNOMED Code(s): 12388598 Code(s): I10 - ESSENTIAL (PRIMARY) HYPERTENSION Status: Acute Priority: High Current Visit: No Annotation/Comment:: Blood pressures stable and under good control in spite of IV Lopressor therapy as above. Continue to observe closely by regular provider especially in light of multiple medication changes during this visit. Qualifiers: Hypertension type: essential hypertension Qualified Code(s): I10 - Essential (primary) hypertension (5) Osteoarthritis SNOMED Code(s): 275968857 Code(s): M19.90 - UNSPECIFIED OSTEOARTHRITIS, UNSPECIFIED SITE Status: Chronic Priority: Medium Current Visit: No Annotation/Comment:: Uric acid relatively stable at 9.0 today. No recent gout attacks. Note, however, patient reinitiated indomethacin therapy despite my previous extensive counseling concerning the dangers of using NSAIDs with his current Eliquis. His bilateral chronic foot pain and diabetic neuropathy are significantly improved with his indomethacin. Various therapeutic options were given to the patient, including returning back to previous Coumadin therapy with readily scheduled indomethacin , however patient does not wish to go back to his Coumadin. Continue current Eliquis for now with strict avoidance of all NSAIDs once again extensively discussed during today's visit. Colchicine should be used with caution conducted to possible exacerbation of his diabetic neuropathy with chronic use of this medication. Note recent initiation of low-dose allopurinol on 02/02 during recent hospitalization. Continue physical therapy with possible shoe inserts as per discharge instructions. Qualifiers: Osteoarthritis location: multiple joints Osteoarthritis type: primary Qualified Code(s): M15.0 - Primary generalized (osteo)arthritis (6) COPD (chronic obstructive pulmonary disease) SNOMED Code(s): 54144863 Code(s): J44.9 - CHRONIC OBSTRUCTIVE PULMONARY DISEASE, UNSPECIFIED Status : Chronic Priority: Medium Current Visit: No Annotation/Comment:: COPD by chest x-ray with no previous therapy. PFTs should be considered once patient's condition has stabilized. Note patient has an additional history of sleep apnea and has been compliant with his CPAP as above. Weight loss in moderation and continued compliance with his CPAP strongly encouraged, which should also be beneficial for his hypertension. Qualifiers: COPD type: emphysema Emphysema type: panlobular Qualified Code(s): J43.1 - Panlobular emphysema (7) Diabetes mellitus SNOMED Code(s): 11814431 Code(s): E11.9 - TYPE 2 DIABETES MELLITUS WITHOUT COMPLICATIONS Status: Chronic Priority: Medium Current Visit: No Annotation/Comment:: Patient has once again been noncompliant with his Accu-Cheks at home. Compliance with twice a day home Accu-Cheks were once again strongly encouraged. Glycosylated hemoglobin was 6.9% on 02/01. Restarted metformin, which will also be beneficial for his weight loss, on 02/01 during recent hospitalization. Note history of diabetic nephropathy and neuropathy. Continued dietary changes encouraged as above. Note patient had been successfully tapered off of his previous prednisone therapy. Consider reinitiation of insulin therapy depending on his clinical course. Qualifiers: Diabetes mellitus type: type 2 Diabetes mellitus assistant terminal manager insulin use: without assistant terminal manager use Diabetes mellitus complication status: with kidney complications Diabetes mellitus complication detail: with chronic kidney disease Chronic kidney disease stage: stage 2 (mild) Qualified Code(s): E11.22 - Type 2 diabetes mellitus with diabetic chronic kidney disease; N18.2 - Chronic kidney disease, stage 2 (mild) (8) Dyslipidemia SNOMED Code(s): 429067057 Code(s): E78.5 - HYPERLIPIDEMIA, UNSPECIFIED Status: Acute Priority: High Current Visit: No Onset Date: 12/13/17 Annotation/Comment:: Lipid panel on 02/01 showed persistent dyslipidemia including an HDL of 28. Patient was recently discharged from [place] on high-dose Lipitor 80 mg daily. Weight loss in moderation strongly advisable, which was extensively discussed the patient and his on 02/01. Dietary information at time of discharge with patient placed on a weight loss diet during previous hospitalization. (9) Hypomagnesemia SNOMED Code(s): 673676093 Code(s): E83.42 - HYPOMAGNESEMIA Status: Chronic Priority: Medium Current Visit: No Onset Date: 11/30/18 Annotation/Comment:: Renitiated magnesium oxide therapy during recent hospitalization especially in light of patient's occasional constipation and refractory arrhythmia, however the patient has also been noncompliant with this medication. Medication compliance was once again strongly encouraged. Continue close follow-up by his regular providers at follow-up. (10) Renal insufficiency SNOMED Code(s): 105070381, 304829029 Code(s): N28.9 - DISORDER OF KIDNEY AND URETER, UNSPECIFIED Status: Chronic Priority: Medium Current Visit: Yes Annotation/Comment:: Stable despite reinitiation of allopurinol and Lisinopril during recent hospitalization. Note diabetic nephropathy. (11) Apnea, sleep SNOMED Code(s): 84524863 Code(s): G47.30 - SLEEP APNEA, UNSPECIFIED Status: Chronic Priority: Medium Current Visit: No Annotation/Comment:: As above. Patient has been compliant with his CPAP, however has not been taking his Mirapex, which would be beneficial for his diabetic neuropathy and restless leg syndrome. Medication compliance once again strongly encouraged. Weight loss strongly encouraged as above. Note recent sleep study on 11/07/18 for CPAP titration. Qualifiers: Sleep apnea type: obstructive Qualified Code(s): G47.33 - Obstructive sleep apnea (adult) (pediatric) (12) Hypoalbuminemia SNOMED Code(s): 122056595 Code(s): E88.09 - [facility] DISORDERS OF PLASMA-PROTEIN METABOLISM, NEC Status: Chronic Priority: Medium Current Visit: Yes Annotation/Comment:: Observe for now. Consider high-protein Glucerna supplements, however weight loss advisable at this time. (13) Peripheral neuropathy SNOMED Code(s): 091151893 Code(s): G62.9 - POLYNEUROPATHY, UNSPECIFIED Status: Acute Priority: Medium Current Visit: Yes Annotation/Comment:: Compliance with medical therapy was strongly encouraged as above. Extensive review of drug interactions of his current medications was conducted during today's evaluation. His workup will be increased to 75 mg by mouth 3 times a day for now with maximum allowed daily dose of 300 mg per day and possible future titration of this medication by his regular provider in the future. Continue physical therapy as before. Qualifiers: Peripheral neuropathy type: polyneuropathy associated with underlying disease Qualified Code(s): G63 - Polyneuropathy in diseases classified elsewhere (14) Mixed anxiety depressive disorder SNOMED Code(s): 277256383 Code(s): F41.8 - OTHER SPECIFIED ANXIETY DISORDERS Status: Chronic Priority: Medium Current Visit: Yes Annotation/Comment:: Note some persistent mixed anxiety depression disorder secondary to multiple health problems, confusion of his medical therapy, etc. Continue to observe closely by his regular provider. - Problem List Review Problem List Initiated/Reviewed/Updated: Yes - My Orders Last 24 Hours: My Active Orders 02/16/19 10:28 Cardiac Monitoring [RC] . DIRECTED Oxygen Therapy, ED [RC] PRN Peripheral IV Care [RC] . DIRECTED Pulse Oximetry [RC] CONTINUOUS Up With Assistance [RC] PFP Vital Signs [RC] PFP Sodium Chloride 0.9% [Saline Flush] 10 ml FLUSH ASDIRECTED PRN Obtain Past Medical Record [OM.PC] Urgent Peripheral IV Insertion Adult [OM.PC] Stat Resuscitation Status Stat 02/16/19 11:13 Chest 1V Frontal [CR] Stat 02/16/19 Breakfast Nothing per Oral Now Diet [DIET] - Assessment/Plan Last 24 Hours: My Active Orders 02/16/19 10:28 Cardiac Monitoring [RC] . DIRECTED Oxygen Therapy, ED [RC] PRN Peripheral IV Care [RC] . DIRECTED Pulse Oximetry [RC] CONTINUOUS Up With Assistance [RC] PFP Vital Signs [RC] PFP Sodium Chloride 0.9% [Saline Flush] 10 ml FLUSH ASDIRECTED PRN Obtain Past Medical Record [OM.PC] Urgent Peripheral IV Insertion Adult [OM.PC] Stat Resuscitation Status Stat 02/16/19 11:13 Chest 1V Frontal [CR] Stat 02/16/19 Breakfast Nothing per Oral Now Diet [DIET] Assessment:: As above. Plan: As above. Extensive precautions were given to the patient, who is in agreement with the treatment plan. See Patient Instructions for further treatment and plan.
[2019-02-16] MEDS ORDERED: Metoprolol Tartrate 5 MG/5 ML SDV IVPUSH ONE ×2 (10:42→11:12)
[2019-02-16] MEDS: Sodium Chloride 0.9% 10 ML Syringe FLUSH PRN ×2 (10:51→11:22)
[2019-02-16 11:08] LABS: CHLORIDE,CL 108 mmol/L (98-107); SODIUM,NA 143 mmol/L (136-145)
== END 2019-02-16 12:40 | disposition home or self-care (01) ==
LOC: LL.ED 10:13
DX: I48.3 Typical atrial flutter (principal); J43.1 Panlobular emphysema; E78.5 Hyperlipidemia, unspecified; E83.42 Hypomagnesemia; E88.09 Other disorders of plasma-protein metabolism, not elsewhere classified; F41.8 Other specified anxiety disorders; I25.10 Atherosclerotic heart disease of native coronary artery without angina pectoris; M89.49 Other hypertrophic osteoarthropathy, multiple sites; I13.0 Hypertensive heart and chronic kidney disease with heart failure and stage 1 through stage 4 chronic kidney disease, or unspecified chronic kidney disease; E11.22 Type 2 diabetes mellitus with diabetic chronic kidney disease; N18.2 Chronic kidney disease, stage 2 (mild); I50.9 Heart failure, unspecified; E11.42 Type 2 diabetes mellitus with diabetic polyneuropathy; G47.33 Obstructive sleep apnea (adult) (pediatric); I48.91 Unspecified atrial fibrillation; Z86.718 Personal history of other venous thrombosis and embolism; Z79.01 Long term (current) use of anticoagulants; Z79.84 Long term (current) use of oral hypoglycemic drugs; Z79.899 Other long term (current) drug therapy
CPT/HCPCS: 36415; 71045; 80053; 80162; 82550; 82553; 83605; 83735; 83880; 84443; 84484; 84550; 85025; 85610; 85730; 96374; 96376; 99284; J3490

== ENCOUNTER 2020-11-15 08:45 | Emergency (ER) | payer BC ==
[2020-11-15] MEDS ORDERED: HYDROmorphone 1 MG/ML Syringe IM ONE (09:14)
[2020-11-15 09:30] LABS: ANION GAP 9.8 meq/L (7-15); CHLORIDE,CL 101 mmol/L (98-107); SODIUM,NA 136 mmol/L (136-145)
[2020-11-15] MEDS ORDERED: Ketorolac 30 MG/ML SDV IM ONE (09:34)
[2020-11-15] MEDS ORDERED: Colchicine 0.6 MG Tab PO ONE (09:43)
--- NOTE | 2020-11-15 14:29 | EDM.PDOC ---
ED HPI GENERAL MEDICAL PROBLEM - General Chief Complaint: Lower Extremity Injury/Pain Stated Complaint: bilat leg pain Time Seen by Provider: 11/15/20 09:00 Source of Information: Reports: Patient History Limitations: Reports: No Limitations - History of Present Illness INITIAL COMMENTS - FREE TEXT/NARRATIVE: Pt. presents to ER with complaints of burning/discomfort bilaterally in legs. Pt. states that he has had problems with gout, and thinks that this is the problem. Pt. has a longstanding history of chronic low back pain, spinal stenosis, and radicular symptoms in the past. He has seen David Guillory in [place] for pain management. Pt. denies any current incontinence, retention or saddle anesthesia. He states the he has been experiencing some dribbling or urine chronically for years but this has not worsened lately. He denies any fever or chills. No chest pain or shortness of breath. Pt. states that the discomfort is worse with movement. Pt. is currently anticoagulated with eliquis for intermittent atrial fib. Onset Date: 11/12/20 Location: Reports: Back, Lower Extremity, Left, Lower Extremity, Right Bilateral Leg Pain Score (Numeric/FACES): 10 - Related Data Allergies Allergy/AdvReac Type Severity Reaction Status Date / Time No Known Allergies Allergy Verified 11/15/20 08:47 Home Meds: Home Meds Apixaban [Eliquis] 5 mg PO BID 11/15/19 [History] Digoxin 125 mcg PO DAILY 11/15/19 [History] Furosemide 40 mg PO DAILY 11/15/19 [History] Metoprolol Succinate [Toprol XL 100mg] 100 mg PO DAILY 11/15/19 [History] Nitroglycerin 0.4 mg SL ASDIRECTED 11/15/19 [History] allopurinoL [Zyloprim] 300 mg PO DAILY 11/15/19 [History] dilTIAZem HCL [Diltiazem ER] 180 mg PO DAILY 11/15/19 [History] lisinopriL [Lisinopril] 5 mg PO DAILY 11/15/19 [History] Ozempic 0.25 mg SQ Q7D 11/26/19 [History] atorvaSTATin [Lipitor] 80 mg PO BEDTIME 11/15/20 [History] Past Medical History HEENT History: Reports: Impaired Vision, Other (See Below) Other HEENT History: Patient wears reading glasses after previous LASIK surgery as below. Cardiovascular History: Reports: Afib, Arrhythmia, Blood Clots/VTE/DVT, CAD, Cardiomyopathy, Heart Failure, High Cholesterol, Hypertension, [place], PVD, Other (See Below) Other Cardiovascular History: Symptomatic moderate bradycardia likely secondary to medications at time of hospitalization in [place] in January 2019. Cardioversion for atrial flutter on 09/03/18 and 12/05/18. Non-STEMI on 12/13/17 with 90% stenosis of the second diagonal of the left coronary artery not amenable to PTCA/stent. Atrial flutter with rapid ventricular response in August 2018 requiring cardioversion as below. History of left leg DVT with secondary bilateral PE in about 2014 with current Eliquis therapy. Peripheral vascular disease of the legs bilaterally with surgery as below. Left atrial enlargement, concentric cardiomegaly, and mild aortic root dilatation by echocardiogram in 24 12 as below. CHF with additional diastolic component. Small pericardial effusion by distant echocardiogram. Last Echocardiogram on 01/24/19 as below. Dyslipidemia. PVCs. Respiratory History: Reports: Bronchitis, Recurrent, COPD, Intubation, Previous, PE, Sleep Apnea Other Respiratory History: Patient has now been compliant with his CPAP with previous problems with noncompliance in the past resulting in a right cerebellar CVA on 01/23/19. Multiple benign right upper lobe pulmonary nodules by CT scans as below, including 2 cm right upper lobe pulmonary nodule, including 2 cm right upper lobe pulmonary nodule on 01/23/19 with follow-up recommended in 3 months. Gastrointestinal History: Reports: Colon Polyp, Diverticulosis, Fatty Liver, Hemorrhoids, Other (See Below) Other Gastrointestinal History: LFTs elevation likely secondary to his fatty liver with hepatosplenomegaly by CT scan. Benign hyperplastic colonic polyp at 25 cm removed by colonoscopy in 2007 as below. Genitourinary History: Reports: BPH, Chronic Renal Insuffiency, Diabetic Nephropathy, Hydronephrosis, Renal Calculus, Other (See Below) Other Genitourinary History: History of recurrent urolithiasis with initial right-sided urolithiasis in 2003 and subsequent episodes in February 2018 with last episode on 01/08/18 with secondary right-sided hydronephrosis from a 1 cm distal stone requiring procedure as below. Benign left renal cyst. Musculoskeletal History: Reports: Arthritis, Back Pain, Chronic, Fracture, Gout, Neck Pain, Chronic, Osteoarthritis, Other (See Below) Other Musculoskeletal History: Digit #5 fracture of the left hand as a teenager. Midshaft right radial and ulnar fracture at age 43. Neurological History: Reports: Concussion, CVA, Head Trauma, Neuropathy, Diabetic, Neuropathy, Peripheral, TIA, Other (See Below) Other Neuro History: Acute right ischemic cerebellar CVA secondary to noncompliance with his CPAP on 01/23/19 with secondary remaining dysarthria and dystaxia and initial respiratory failure and metabolic encephalopathy. Restless leg syndrome. Head Concussions 2 at age 35 and 43. Questionable TIA in December 2017 with negative MRI. Psychiatric History: Reports: Anxiety, Depression Endocrine/Metabolic History: Reports: Diabetes, Type II, IDDM, Obesity/BMI 30+, Other (See Below) Other Endocrine/Metabolic History: History of AODM with previous occasional insulin use and current metformin use, however current dietary therapy. Hypomagnesemia. Hypoalbuminemia. Hematologic History: Reports: None Immunologic History: Reports: None Oncologic (Cancer) History: Reports: None Dermatologic History: Reports: Venous Stasis Dermatitis - Infectious Disease History Infectious Disease History: Reports: Chicken Pox, Measles, Shingles - Past Surgical History Head Surgeries/Procedures: Reports: None HEENT Surgical History: Reports: LASIK, Oral Surgery Other HEENT Surgeries/Procedures: [place] teeth extraction 4 at age 19. LASIK bilaterally in 1996. Cardiovascular Surgical History: Reports: Vascular Surgery, Other (See Below) Other Cardiovascular Surgeries/Procedures: Electrocardioversion for atrial flutter on 09/03/18. Left leg stent placement in 2013. Respiratory Surgical History: Reports: None GI Surgical History: Reports: Appendectomy, Colonoscopy, Hernia, Inguinal, Hernia Repair/Other, Polypectomy, Other (See Below) Other GI Surgeries/Procedures: Appendectomy at age 11. Colonoscopy with concomitant umbilical hernia repair on 02/22/08 with previous bilateral inguinal hernia repairs. Male Surgical History: Reports: Kidney Stone Extraction, Renal Calculus, Other (See Below) Other Male Surgeries/Procedures: Right ureteral stent placement, cystoscopy, and stone extraction on 01/11/18. Endocrine Surgical History: Reports: None Neurological Surgical History: Reports: Discectomy, Laminectomy, Lumbar Spine, Other (See Below) Other Neurological Surgeries/Procedures: Laser laminectomy and discectomy in the lumbar region in 2011. Musculoskeletal Surgical History: Reports: None Oncologic Surgical History: Reports: None Dermatological Surgical History: Reports: None - Past Imaging History Past Imaging History: Reports: Angiography (Positive Heart catheterization on 12/16/17.), Cardiac Echo (Last echocardiogram on 01/24/19 with ejection fraction of 5560 percent and findings as above. Previous echocardiogram on 11/21/18 with ejection fraction of 5560 percent. Trans-esophageal echocardiogram performed on 09/03/18 at time of cardioversion. Previous echocardiograms on 12/15/17 and 01/21/10.), CAT Scan (Negative CTA of the chest for PE on 09/22/18, 11/15/18, 09/02/18, 12/14/14 and 06/22/16. Negative CTA of the neck and head on 01/23/19. CT of the abdomen and pelvis on with positive findings as above. CT of the chest on 02/12/18.), MRI (Positive MRI of the brain on 01/23/19 for right cerebellar infarct. Previous MRI of the brain on 12/15/17 was negative. Lumbar spine on 07/11/11.), Sleep Study (Last sleep study including CPAP titration on 11/07/18.), Ultrasound (Renal ultrasound on 02/22/18, 01/09/18, 10/21/17 and 02/04/04.), Venous Doppler (Bilateral 10/17/15 with left-sided study on 06/23/16.), Other (See Below) (IVP on 02/04/04.) Social & Family History - Family History HEENT: Reports: Cataract, Other (See Below) Other HEENT Family History: Multiple paternal aunts and uncles with cataracts. Cardiac: Reports: Heart Murmur, Hypertension, Other (See Below) Other Cardiac Family History: Paternal uncle with valvular disease secondary to rheumatic fever. Hypertension in parents. Respiratory: Reports: Sleep Apnea, Other (See Below) Other Respiratory Family Hisory: Mother with sleep apnea. GI: Reports: Cholelithiasis, Other (See Below) Other GI Family History: Father with cholelithiasis. : Reports: Renal Calculus, Other (See Below) Other Family History: Multiple paternal uncles with urolithiasis. OBGYN: Reports: None Musculoskeletal: Reports: Arthritis, Gout, Osteoarthritis, Other (See Below) Other Musculoskeletal Family History: Father with gout and osteoarthritis. Neurological: Reports: CVA, Other (See Below) Other Neurological Family History: Maternal grandfather with CVA in his 70s. Psychiatric: Reports: None Endocrine/Metabolic: Reports: Diabetes, type II, IDDM, Other (See Below) Other Endocrine/Metabolic Family History: Mother and paternal uncle with IDDM. Hematologic: Reports: Other (See Below) Other Hematologic Family History: Maternal uncle with unknown type of rare blood disease. Immunologic: Reports: None Dermatologic: Reports: None Oncologic: Reports: Breast, Prostate, Other (See Below) Other Oncologic Family History: Mother with breast cancer at age 72. Paternal uncle with prostate cancer in his 80s. - Tobacco Use Tobacco Use Status *Q: Never Tobacco User - Caffeine Use Caffeine Use: Reports: Coffee, Soda - Living Situation & Occupation Living situation: Reports: (1981. 2 children, 1 boy 1 girl), with Family () Occupation: Employed ([employer]) Review of Systems - Review of Systems Review Of Systems: Comprehensive ROS is negative, except as noted in HPI. ED EXAM, GENERAL - Physical Exam Exam: See Below Exam Limited By: No Limitations General Appearance: Alert, WD/WN, No Apparent Distress Respiratory/Chest: No Respiratory Distress, Lungs Clear, Normal Breath Sounds, No Accessory Muscle Use, Chest Non-Tender Cardiovascular: Normal Peripheral Pulses, Regular Rate, Rhythm, No JVD, No Murmur Peripheral Pulses: 4+: Radial (L) GI/Abdominal: Soft, Non-Tender, No Distention, No Mass (Male) Exam: Deferred Rectal (Males) Exam: Deferred Back Exam: Decreased Range of Motion, Muscle Spasm, Paraspinal Tenderness, Vertebral Tenderness Extremities: Normal Range of Motion, No Pedal Edema, Leg Pain, Redness, Other ( Rubor/stasis pigmentation to lower extremities consistent with chronic peripheral vascular disease. Tim negative. No unilateral duskiness. ). No: Mottled, Pallor Neurological: Alert, Oriented, CN II-XII Intact, Normal Cognition, Normal Reflexes, No Motor/Sensory Deficits Psychiatric: Normal Affect, Normal Mood Skin Exam: Warm, Dry, Intact, Normal Color, No Rash Course - Vital Signs Last Recorded V/S: Last Vital Signs Temp 36.7 C 11/15/20 08:47 Pulse 60 11/15/20 09:08 Resp 18 11/15/20 09:08 BP 127/62 11/15/20 09:08 Pulse Ox 96 11/15/20 09:08 - Orders/Labs/Meds Labs: Laboratory Tests 11/15/20 11/15/20 Range/Units 09:06 09:06 WBC 10.9 H (4.0-10.2) K/uL RBC 5.56 H (4.33-5.41) M/uL Hgb 16.6 (13.1-16.8) g/dL Hct 46.1 (39.0-49.0) % MCV 82.9 L (84.0-98.0) fL MCH 29.9 (28.2-33.3) pg MCHC 36.0 (31.7-36.0) g/dL RDW 13.4 (11.2-14.1) % Plt Count 193 (150-350) K/uL Neut % (Auto) 79.0 (45.0-80.0) % Lymph % (Auto) 10.7 (10.0-50.0) % [place] % (Auto) 9.1 (2.0-14.0) % Eos % (Auto) 0.6 (0.0-5.0) % Baso % (Auto) 0.6 (0.0-2.0) % Neut # (Auto) 8.61 H (1.40-7.00) K/uL Lymph # (Auto) 1.16 (0.50-3.50) K/uL [place] # (Auto) 0.99 (0.00-1.00) K/uL Eos # (Auto) 0.07 (0.00-0.50) K/uL Baso # (Auto) 0.06 (0.00-0.20) K/uL Sodium 136 (136-145) mmol/L Potassium 3.5 (3.5-5.1) mmol/L Chloride 101 (98-107) mmol/L Carbon Dioxide 25.2 (21.0-32.0) mmol/L Anion Gap 9.8 (7-15) meq/L BUN 12 (7-18) mg/dL Creatinine 1.32 H (0.51-1.17) mg/dL Est Cr Clr Drug Dosing TNP Estimated GFR (MDRD) 55 mL/min Glucose 307 H (70-99) mg/dL Uric Acid 4.3 (2.6-7.2) mg/dL Calcium 8.8 (8.5-10.1) mg/dL Total Bilirubin 2.3 H (0.2-1.0) mg/dL AST 18 (15-37) U/L ALT 36 (12-78) U/L Alkaline Phosphatase 112 (46-116) IU/L Creatine Kinase 30 (26-308) U/L C-Reactive Protein 7.7 H (<=0.9) mg/dL Total Protein 7.1 (6.4-8.2) g/dL Albumin 3.3 L (3.4-5.0) g/dL Meds: Medications Discontinued Medications Generic Name Dose Route Start Last Admin Trade Name Freq PRN Reason Stop Dose Admin Colchicine 1.2 mg 11/15/20 09:43 11/15/20 10:03 Colchicine 0.6 Mg Tab PO 11/15/20 09:44 1.2 mg ONETIME ONE Administration Hydromorphone HCl 1 mg 11/15/20 09:14 11/15/20 09:23 Hydromorphone 1 Mg/Ml Syringe IM 11/15/20 09:15 1 mg ONETIME ONE Administration Ketorolac Tromethamine 30 mg 11/15/20 09:34 11/15/20 10:03 Ketorolac 30 Mg/Ml Sdv IM 11/15/20 09:35 30 mg ONETIME ONE Administration Departure - Departure Time of Disposition: 10:15 Disposition: Home, Self-Care 01 Clinical Impression: Acute exacerbation of chronic low back pain - Discharge Information Instructions: Colchicine tablets or capsules, Gout, [id number], Acetaminophen; Codeine tablets Referrals: Sharonda Rai NP [Primary Care Provider] - Forms: ED Department Discharge Additional Instructions: Colchicine 0.6mg 1 dose tomorrow and one dose on Tuesday Tylenol #3 1 tab every 4-6 hours as needed for pain Stop drinking alcohol, as this is contributing to the pain. recheck in clinic in 7-10 days, sooner if not gradually improving. Sepsis Event Note (ED) - Focused Exam Vital Signs: Vital Signs Temp Pulse Resp BP Pulse Ox 11/15/20 09:08 60 18 127/62 96 11/15/20 08:47 36.7 C 79 20 131/93 H 92 L - Problem List Review Problem List Initiated/Reviewed/Updated: Yes - Assessment/Plan Plan: Colchicine 0.6mg 1 dose tomorrow and one dose on Tuesday Tylenol #3 1 tab every 4-6 hours as needed for pain Stop drinking alcohol, as this is contributing to the pain. recheck in clinic in 7-10 days, sooner if not gradually improving.
== END 2020-11-15 10:30 | disposition home or self-care (01) ==
LOC: LL.ED 08:45
DX: G89.29 Other chronic pain (principal); M54.5 Low back pain; I48.91 Unspecified atrial fibrillation; I25.10 Atherosclerotic heart disease of native coronary artery without angina pectoris; E11.22 Type 2 diabetes mellitus with diabetic chronic kidney disease; I13.0 Hypertensive heart and chronic kidney disease with heart failure and stage 1 through stage 4 chronic kidney disease, or unspecified chronic kidney disease; N18.9 Chronic kidney disease, unspecified; I50.9 Heart failure, unspecified; I25.2 Old myocardial infarction; J44.9 Chronic obstructive pulmonary disease, unspecified; E11.42 Type 2 diabetes mellitus with diabetic polyneuropathy; E66.9 Obesity, unspecified; Z68.30 Body mass index [BMI] 30.0-30.9, adult; Z86.718 Personal history of other venous thrombosis and embolism; Z86.73 Personal history of transient ischemic attack (TIA), and cerebral infarction without residual deficits; Z79.01 Long term (current) use of anticoagulants; Z79.899 Other long term (current) drug therapy
CPT/HCPCS: 36415; 80053; 82550; 84550; 85025; 86140; 96372; 99283; 99284; A9270-GY; J1170; J1885

== ENCOUNTER 2022-10-06 11:38 | Inpatient (IN) | payer BC ==
[2022-10-06] MEDS ORDERED: Acetaminophen 500 MG Tab PO PRN (16:06)
[2022-10-06] MEDS ORDERED: Warfarin 5 MG Tab PO SCH (16:15)
[2022-10-06] MEDS: SACUBITRIL PO SCH (17:19)
[2022-10-06] MEDS: Sennosides/Docusate Sodium 50-8.6 MG Tab PO SCH (17:19)
[2022-10-06] MEDS: VALSARTAN PO SCH (17:19)
[2022-10-06] MEDS: Gabapentin 300 MG Cap PO SCH (17:28)
[2022-10-06] MEDS ORDERED: Warfarin 2 MG Tab PO ONE (18:00)
[2022-10-06] MEDS: INSULIN GLARGINE HUM REC ANLOG 100 UNIT/ML SUBCUT SCH (19:28)
[2022-10-06] MEDS: Melatonin 3 MG Tab PO SCH (19:29)
[2022-10-06] MEDS: Pramipexole 0.5 MG Tab PO SCH (19:29)
[2022-10-06] MEDS ORDERED: oxyCODONE 5 MG Tab ONE (23:43)
[2022-10-06] MEDS: oxyCODONE 5 MG Tab PO PRN (23:45)
[2022-10-07] MEDS ORDERED: Digoxin 250 MCG Tab PO SCH (08:00)
[2022-10-07 08:06] LABS: BASOPHILS ABSOLUTE AUTO 0.03 K/uL (0.00-0.20); BASOPHILS PERCENT AUTO 0.5 % (0.0-2.0); EOSINOPHILS ABSOLUTE AUTO 0.34 K/uL (0.00-0.50); EOSINOPHILS PERCENT AUTO 5.3 % (0.0-5.0); HEMOGLOBIN 14.3 g/dL (13.1-16.8); LYMPHOCYTES ABSOLUTE AUTO 1.76 K/uL (0.50-3.50); LYMPHOCYTES PERCENT AUTO 27.5 % (10.0-50.0); MEAN CORPUSCULAR HGB CONC 33.3 g/dL (31.7-36.0); MEAN CORPUSCULAR VOLUME 84.3 fL (84.0-98.0); MONOCYTES PERCENT AUTO 10.9 % (2.0-14.0); NEUTROPHILS ABSOLUTE AUTO 3.57 K/uL (1.40-7.00); NEUTROPHILS PERCENT AUTO 55.8 % (45.0-80.0); PLATELET COUNT,PLT 208 K/uL (150-350); RED CELL DISTRIBUTION WIDTH 14.9 % (11.2-14.1); WHITE BLOOD CELL COUNT,WBC 6.4 K/uL (4.0-10.2)
[2022-10-07] MEDS: Sennosides/Docusate Sodium 50-8.6 MG Tab PO SCH ×2 (08:08→17:38)
[2022-10-07] MEDS: ATORVASTATIN 80 MG PO SCH (08:08)
[2022-10-07] MEDS: Aspirin 81 MG Tab.EC PO SCH (08:08)
[2022-10-07] MEDS: ALLOPURINOL 300 MG PO SCH (08:09)
[2022-10-07] MEDS: SACUBITRIL PO SCH ×2 (08:09→17:37)
[2022-10-07] MEDS: VALSARTAN PO SCH ×2 (08:09→17:37)
[2022-10-07] MEDS: Gabapentin 300 MG Cap PO SCH ×2 (08:09→17:38)
[2022-10-07] MEDS: DULoxetine 30 MG Cap PO SCH (08:10)
[2022-10-07] MEDS: oxyCODONE 5 MG Tab PO PRN ×2 (08:17→22:09)
[2022-10-07 08:47] LABS: PROTHROMBIN TIME 19.8 SEC (9.0-11.1)
[2022-10-07 08:50] LABS: ALBUMIN 2.5 g/dL (3.4-5.0); BILIRUBIN TOTAL 0.7 mg/dL (0.2-1.0); CALCIUM 8.7 mg/dL (8.5-10.1); CREATININE 1.22 mg/dL (0.51-1.17); DIGOXIN 0.68 ng/mL (0.90-2.00); EST CRCL DRUG DOSING (CG) 71.12 mL/min; MAGNESIUM 1.4 mg/dL (1.8-2.4); PROTEIN TOTAL,TP 6.8 g/dL (6.4-8.2)
[2022-10-07] MEDS ORDERED: Digoxin 250 MCG Tab PO ONE (09:01)
[2022-10-07] MEDS: Magnesium Oxide 400 MG Tab PO SCH ×2 (12:08→17:38)
[2022-10-07] MEDS ORDERED: Warfarin 2 MG Tab PO ONE (15:30)
[2022-10-07] MEDS: Pramipexole 0.5 MG Tab PO SCH (19:29)
[2022-10-07] MEDS: Melatonin 3 MG Tab PO SCH (19:29)
[2022-10-07] MEDS: INSULIN GLARGINE HUM REC ANLOG 100 UNIT/ML SUBCUT SCH (19:30)
[2022-10-08] MEDS: oxyCODONE 5 MG Tab PO PRN ×2 (04:35→21:29)
[2022-10-08 07:48] LABS: INR 2.5
[2022-10-08] MEDS: DULoxetine 30 MG Cap PO SCH (08:55)
[2022-10-08] MEDS: Digoxin 250 MCG Tab PO SCH (08:56)
[2022-10-08] MEDS: Gabapentin 300 MG Cap PO SCH ×2 (09:02→18:23)
[2022-10-08] MEDS: ATORVASTATIN 80 MG PO SCH (09:03)
[2022-10-08] MEDS: VALSARTAN PO SCH ×2 (09:03→18:16)
[2022-10-08] MEDS: ALLOPURINOL 300 MG PO SCH (09:03)
[2022-10-08] MEDS: SACUBITRIL PO SCH ×2 (09:03→18:16)
[2022-10-08] MEDS: Sennosides/Docusate Sodium 50-8.6 MG Tab PO SCH ×2 (09:05→18:17)
[2022-10-08] MEDS: Aspirin 81 MG Tab.EC PO SCH (09:10)
[2022-10-08] MEDS: Magnesium Oxide 400 MG Tab PO SCH ×2 (09:10→18:15)
[2022-10-08] MEDS ORDERED: [UNRECOGNIZED DRUG - REMARK] SCH (09:30)
[2022-10-08] MEDS: Warfarin 5 MG Tab PO SCH (18:14)
[2022-10-08] MEDS: Melatonin 3 MG Tab PO SCH (20:31)
[2022-10-08] MEDS: Pramipexole 0.5 MG Tab PO SCH (20:32)
[2022-10-08] MEDS: INSULIN GLARGINE HUM REC ANLOG 100 UNIT/ML SUBCUT SCH (20:32)
[2022-10-09 07:59] LABS: INR 2.3
[2022-10-09] MEDS: DULoxetine 30 MG Cap PO SCH (08:21)
[2022-10-09] MEDS: Aspirin 81 MG Tab.EC PO SCH (08:22)
[2022-10-09] MEDS: Magnesium Oxide 400 MG Tab PO SCH ×2 (08:23→17:48)
[2022-10-09] MEDS: Digoxin 250 MCG Tab PO SCH (08:23)
[2022-10-09] MEDS: ALLOPURINOL 300 MG PO SCH (08:24)
[2022-10-09] MEDS: Sennosides/Docusate Sodium 50-8.6 MG Tab PO SCH ×2 (08:25→17:49)
[2022-10-09] MEDS: VALSARTAN PO SCH ×2 (08:25→17:48)
[2022-10-09] MEDS: ATORVASTATIN 80 MG PO SCH (08:25)
[2022-10-09] MEDS: SACUBITRIL PO SCH ×2 (08:25→17:48)
[2022-10-09] MEDS: Gabapentin 300 MG Cap PO SCH ×2 (08:38→17:45)
[2022-10-09] MEDS: oxyCODONE 5 MG Tab PO PRN ×2 (08:39→20:26)
[2022-10-09] MEDS: Warfarin 5 MG Tab PO SCH (17:47)
[2022-10-09] MEDS: INSULIN GLARGINE HUM REC ANLOG 100 UNIT/ML SUBCUT SCH (20:26)
[2022-10-09] MEDS: Pramipexole 0.5 MG Tab PO SCH (20:26)
[2022-10-09] MEDS: Melatonin 3 MG Tab PO SCH (20:26)
[2022-10-10] MEDS: DULoxetine 30 MG Cap PO SCH (07:34)
[2022-10-10] MEDS: Aspirin 81 MG Tab.EC PO SCH (07:35)
[2022-10-10] MEDS: Digoxin 250 MCG Tab PO SCH (07:36)
[2022-10-10] MEDS: Magnesium Oxide 400 MG Tab PO SCH ×2 (07:36→19:10)
[2022-10-10] MEDS: Gabapentin 300 MG Cap PO SCH ×2 (07:37→19:12)
[2022-10-10] MEDS: ATORVASTATIN 80 MG PO SCH (07:38)
[2022-10-10] MEDS: ALLOPURINOL 300 MG PO SCH (07:38)
[2022-10-10] MEDS: SACUBITRIL PO SCH ×2 (07:39→19:13)
[2022-10-10] MEDS: VALSARTAN PO SCH ×2 (07:39→19:13)
[2022-10-10] MEDS: Sennosides/Docusate Sodium 50-8.6 MG Tab PO SCH ×2 (07:39→19:10)
[2022-10-10 07:55] LABS: INR 2.5
[2022-10-10] MEDS: Warfarin 5 MG Tab PO SCH (19:11)
[2022-10-10] MEDS: Melatonin 3 MG Tab PO SCH (21:21)
[2022-10-10] MEDS: Pramipexole 0.5 MG Tab PO SCH (21:22)
[2022-10-10] MEDS: INSULIN GLARGINE HUM REC ANLOG 100 UNIT/ML SUBCUT SCH (21:23)
[2022-10-11] MEDS: Magnesium Oxide 400 MG Tab PO SCH ×2 (07:56→18:15)
[2022-10-11] MEDS: Aspirin 81 MG Tab.EC PO SCH (07:56)
[2022-10-11] MEDS: VALSARTAN PO SCH ×2 (07:57→18:15)
[2022-10-11] MEDS: SACUBITRIL PO SCH ×2 (07:57→18:15)
[2022-10-11] MEDS: ALLOPURINOL 300 MG PO SCH (07:57)
[2022-10-11] MEDS: ATORVASTATIN 80 MG PO SCH (07:57)
[2022-10-11] MEDS: Sennosides/Docusate Sodium 50-8.6 MG Tab PO SCH ×2 (07:57→18:15)
[2022-10-11] MEDS: DULoxetine 30 MG Cap PO SCH (07:58)
[2022-10-11] MEDS: Digoxin 250 MCG Tab PO SCH (07:59)
[2022-10-11] MEDS: Gabapentin 300 MG Cap PO SCH ×2 (08:04→18:19)
[2022-10-11 08:18] LABS: INR 2.7
[2022-10-11] MEDS ORDERED: Warfarin 5 MG Tab PO SCH (18:00)
[2022-10-11] MEDS: Warfarin 5 MG Tab PO SCH (18:16)
[2022-10-11] MEDS: traMADol 50 MG Tab PO PRN (18:16)
[2022-10-11] MEDS: Melatonin 3 MG Tab PO SCH (22:05)
[2022-10-11] MEDS: INSULIN GLARGINE HUM REC ANLOG 100 UNIT/ML SUBCUT SCH (22:06)
[2022-10-11] MEDS: Pramipexole 0.5 MG Tab PO SCH (22:06)
[2022-10-12] MEDS: traMADol 50 MG Tab PO PRN ×3 (00:50→17:09)
[2022-10-12] MEDS: Aspirin 81 MG Tab.EC PO SCH (07:31)
[2022-10-12] MEDS: Sennosides/Docusate Sodium 50-8.6 MG Tab PO SCH ×2 (07:31→17:06)
[2022-10-12] MEDS: Magnesium Oxide 400 MG Tab PO SCH ×2 (07:31→17:06)
[2022-10-12] MEDS: Digoxin 250 MCG Tab PO SCH (07:32)
[2022-10-12] MEDS: ALLOPURINOL 300 MG PO SCH (07:32)
[2022-10-12] MEDS: ATORVASTATIN 80 MG PO SCH (07:33)
[2022-10-12] MEDS: DULoxetine 30 MG Cap PO SCH (07:33)
[2022-10-12] MEDS: SACUBITRIL PO SCH ×2 (07:34→17:06)
[2022-10-12] MEDS: VALSARTAN PO SCH ×2 (07:34→17:06)
[2022-10-12] MEDS: Gabapentin 300 MG Cap PO SCH ×2 (07:39→17:07)
[2022-10-12 14:21] LABS: INR 2.6; PROTHROMBIN TIME 25.4 SEC (9.0-11.1)
[2022-10-12 14:25] LABS: DIGOXIN 1.04 ng/mL (0.90-2.00); MAGNESIUM 2.1 mg/dL (1.8-2.4)
[2022-10-12] MEDS: Warfarin 5 MG Tab PO SCH (17:07)
[2022-10-12] MEDS: Pramipexole 0.5 MG Tab PO SCH (20:15)
[2022-10-12] MEDS: Melatonin 3 MG Tab PO SCH (20:15)
[2022-10-12] MEDS: INSULIN GLARGINE HUM REC ANLOG 100 UNIT/ML SUBCUT SCH (20:16)
[2022-10-13] MEDS: traMADol 50 MG Tab PO PRN (01:23)
[2022-10-13] MEDS: Aspirin 81 MG Tab.EC PO SCH (07:19)
[2022-10-13] MEDS: Sennosides/Docusate Sodium 50-8.6 MG Tab PO SCH (07:30)
[2022-10-13] MEDS: Magnesium Oxide 400 MG Tab PO SCH (07:30)
[2022-10-13] MEDS: SACUBITRIL PO SCH (07:31)
[2022-10-13] MEDS: VALSARTAN PO SCH (07:31)
[2022-10-13 07:32] LABS: INR 2.6
[2022-10-13] MEDS: ATORVASTATIN 80 MG PO SCH (07:32)
[2022-10-13] MEDS: ALLOPURINOL 300 MG PO SCH (07:33)
[2022-10-13] MEDS: Digoxin 250 MCG Tab PO SCH (07:34)
[2022-10-13] MEDS: DULoxetine 30 MG Cap PO SCH (07:35)
[2022-10-13] MEDS: Gabapentin 300 MG Cap PO SCH (07:36)
== END 2022-10-13 13:50 | disposition home or self-care (01) | DRG 861 ==
LOC: LL.MS 16:03
PROVIDERS: ADMIT Emergency Medicine; ATTEND Emergency Medicine
DX: R53.1 Weakness (principal); S82.402D Unspecified fracture of shaft of left fibula, subsequent encounter for closed fracture with routine healing; N17.9 Acute kidney failure, unspecified; E78.00 Pure hypercholesterolemia, unspecified; I25.10 Atherosclerotic heart disease of native coronary artery without angina pectoris; J44.9 Chronic obstructive pulmonary disease, unspecified; E11.21 Type 2 diabetes mellitus with diabetic nephropathy; E11.22 Type 2 diabetes mellitus with diabetic chronic kidney disease; N18.9 Chronic kidney disease, unspecified; I13.0 Hypertensive heart and chronic kidney disease with heart failure and stage 1 through stage 4 chronic kidney disease, or unspecified chronic kidney disease; M19.90 Unspecified osteoarthritis, unspecified site; G25.81 Restless legs syndrome; F41.9 Anxiety disorder, unspecified; F32.A Depression, unspecified; E66.01 Morbid (severe) obesity due to excess calories; E11.42 Type 2 diabetes mellitus with diabetic polyneuropathy; R91.8 Other nonspecific abnormal finding of lung field; I48.0 Paroxysmal atrial fibrillation; G47.33 Obstructive sleep apnea (adult) (pediatric); I50.32 Chronic diastolic (congestive) heart failure; D68.69 Other thrombophilia; Z68.41 Body mass index [BMI] 40.0-44.9, adult; Z79.899 Other long term (current) drug therapy; Z79.82 Long term (current) use of aspirin; Z79.01 Long term (current) use of anticoagulants; Z79.4 Long term (current) use of insulin; I25.2 Old myocardial infarction; Z86.711 Personal history of pulmonary embolism; Z86.718 Personal history of other venous thrombosis and embolism; Z86.010 Personal history of colon polyps; Z86.73 Personal history of transient ischemic attack (TIA), and cerebral infarction without residual deficits; Z87.81 Personal history of (healed) traumatic fracture; Z98.890 Other specified postprocedural states; Z90.49 Acquired absence of other specified parts of digestive tract; Z87.442 Personal history of urinary calculi; W19.XXXD Unspecified fall, subsequent encounter
CPT/HCPCS: 36415; 36416; 80053; 80162; 82947; 83735; 85025; 85610; 97116-GP; 97162-GP; 97165-GO; 97530-GO; 97535-GO; A9270-GY